=== PATIENT | female | born 1960 | race Caucasian/White ===

== ENCOUNTER 2020-08-10 00:54 | Outpatient (CLI) | payer BC, SELFPAY ==
[2020-08-10 18:46] LABS: SARS-CoV-2 RNA PCR Negative
== END 2020-08-10 00:55 | disposition home or self-care (01) ==
LOC: ANHCOVIDDT 00:54
PROVIDERS: PCP Emergency Medicine; Visit Provider Internal Medicine Gastroenterology
DX: Z01.812 Encounter for preprocedural laboratory examination (principal); Z20.822 Contact with and (suspected) exposure to COVID-19
CPT/HCPCS: C9803; U0003; U0005

== ENCOUNTER 2020-08-14 01:20 | Day surgery (SDC) | payer BC, SELFPAY ==
[2020-07-30 14:29] VITALS: BMI 22.3
[2020-08-14 08:44] VITALS: BP 138/79; PULSE 82; RESP 16; TEMP 37.6; O2SAT 98
[2020-08-14] MEDS: LACTATED RINGERS 1,000 ML 150 ML IV CONT (08:51)
--- NOTE | 2020-08-14 08:54 | WPDANESEPPF ---
Anes - Initial Pre Proc Eval Procedure: Operation Date: 08/14/20 10:00 Proposed Procedures p Screening Colonoscopy - Jasper Lang MD Date/Time: 08/14/20 08:54 Surgeon: Jasper Lang MD Pre Op Diagnosis: Neoplasm Screening Patient Data Age: 60 Gender: F Height: 1.63 m Weight: 99.6 kg Last Vital Signs Temp 37.6 C 08/14/20 08:44 Pulse 82 08/14/20 08:44 Resp 16 08/14/20 08:44 BP 138/79 08/14/20 08:44 Pulse Ox 98 08/14/20 08:44 Allergies Allergy/AdvReac Type Severity Reaction Status Date / Time No Known Allergies Allergy Verified 08/14/20 08:42 Home Medications Medication Instructions Recorded Confirmed Type No Home Medications 08/14/20 08/14/20 History Patient hx anesthesia problems: none Family hx anesthesia problems: none [facility] Past Medical History Medical History (Updated 08/14/20 @ 08:56 by Wilmer Xiao MD) Asthma Obesity Social History Social History Years smoked: 3 Smoking status: Former smoker Tobacco type: cigarettes Alcohol intake: current Drinks per week: 2 Substance use: never Substance use type: does not use Living arrangements: with family Spiritual care concerns: No Anes - Eval Final PreProcedure Day of Procedure 08/14/20 08:54 Patient weight: obese Heart: regular rate and rhythm Lungs: clear to auscultation and normal air movement Airway: Mallampati scale Neurological: alert and oriented Last oral intake: >/= 8 hours ASA classification: II Emergent: no Anesthetic plan: proceed Anesthesia type and monitoring: general GIVS Informed Consent: The patient's anesthetic plan and its attendant risks and benefits were discussed with the patient/family/POA. Questions were solicited and answers provided to the satisfaction of the patient/family/POA.
--- NOTE | 2020-08-14 10:06 | PM.HPGS ---
History of Present Illness History of Present Illness Consent: Risks, benefits, and alternatives have been discussed and questions answered. Patient agrees to proceed with procedure. Chief complaint: Neoplasm Screening Narrative: Ifrah Plunkett is a 60 year old female here for first screening colonoscopy Review of Systems Constitutional: Constitutional: Denies headache(s) and Denies weakness Eyes: Eyes: Denies blurry vision ENT: Reports Normal hearing present, Denies headache(s) and Denies neck pain Cardiovascular: Cardiovascular: Denies chest pain and Denies dyspnea Respiratory: Respiratory: Denies dyspnea Gastrointestinal: Gastrointestinal: Reports no additional gastrointestinal complaints Genitourinary: Genitourinary: Denies dysuria Musculoskeletal: Musculoskeletal: Denies neck pain Integumentary/Breasts: Skin/Breast: Denies dry skin Neurologic: Reports Normal hearing present, Denies headache(s) and Denies weakness Psychiatric: Psychiatric: Denies anxiety Endocrine: Endocrine: Denies change in body appearance Hematologic/Lymphatic: Hematologic/Lymphatic: Denies easy bleeding Allergic/Immunologic: Allergic/Immunologic: Denies urticaria PMFSH Past Medical History Medical History (Updated 08/14/20 @ 10:06 by Jasper Lang MD) Asthma Colon cancer screening Obesity Social History Social History Years smoked: 3 Smoking status: Former smoker Tobacco type: cigarettes Alcohol intake: current Drinks per week: 2 Substance use: never Substance use type: does not use Living arrangements: with family Spiritual care concerns: No Meds Home Medications and Allergies Home Medications Medication Instructions Recorded Confirmed Type No Home Medications 08/14/20 08/14/20 History Allergies Allergy/AdvReac Type Severity Reaction Status Date / Time No Known Allergies Allergy Verified 08/14/20 08:42 Vital Signs Vital Signs - 24 hr 08/14/20 08:44 Temperature 99.6 F Pulse Rate 82 Respiratory Rate 16 Blood Pressure 138/79 Pulse Oximetry 98 Exam Const: General: comfortable and no acute distress HENMT: General nose exam: Normal nares present Eyes: General: appearance normal, both eyes and all related structures Neck: Neck: no JVD Resp: Auscultation: clear to auscultation bilaterally Cardio: Rate: regular rate Rhythm: regular rhythm GI: Inspection: non-distended GI Palp: Yes Soft to palpation Skin: General skin exam: normal color Neuro: General: gait normal Speech: normal speech Extrem: General: normal to inspection Psych: Mental Status: mental status grossly normal Assessment and Plan Assessment and plan (1) Colon cancer screening: Code(s): Z12.11 - Encounter for screening for malignant neoplasm of colon Status: Acute Assessment and Plan: will proceed with colonoscopy
[2020-08-14 10:27] VITALS: BP 96/53; PULSE 68; RESP 22; O2SAT 98
[2020-08-14 10:37] VITALS: BP 103/61; PULSE 64; RESP 20; O2SAT 100
[2020-08-14 10:47] VITALS: BP 111/68; PULSE 70; RESP 18; O2SAT 100
[2020-08-14 10:57] VITALS: BP 115/61; PULSE 66; RESP 20; O2SAT 99
== END 2020-08-14 11:06 | disposition home or self-care (01) ==
PROVIDERS: PCP Emergency Medicine; Visit Provider Internal Medicine Gastroenterology
PROC: 0DJD8ZZ Inspection of Lower Intestinal Tract, Via Natural or Artificial Opening Endoscopic (ICD-10-PCS; CPT 45378; principal; 2020-08-14 10:00)
DX: Z12.11 Encounter for screening for malignant neoplasm of colon (principal); D12.2 Benign neoplasm of ascending colon; D12.0 Benign neoplasm of cecum; Z87.891 Personal history of nicotine dependence; E66.9 Obesity, unspecified; Z68.37 Body mass index [BMI] 37.0-37.9, adult; J45.909 Unspecified asthma, uncomplicated
CPT/HCPCS: 45385; 88305; J7120

== ENCOUNTER 2021-05-14 07:44 | Emergency (ER) | payer BC, SELFPAY ==
--- NOTE | ~2021-05-14 | CT_ITS ---
EXAMINATION: CT facial bones wo con DATE: 05/14/2021 08:32 INDICATION: Facial pain post fall with head injury TECHNIQUE: Computed tomography (CT) of the facial bones and maxillofacial region was performed withou t intravenous contrast. Coronal reconstructions were obtained. Automated exposure control and iterati ve reconstruction technique were employed. The dose-length product was 258.13 mGy-cm. COMPARISON: None. FINDINGS: Nondisplaced fracture across the nasal process of the maxilla. No other maxillofacial fractures ident ified. Specifically the gilbert of the orbits, paranasal sinuses, the nasal bones, mandible, pterygoid plates and zygomatic arches all intact. Normal alignment at the bilateral temporomandibular joints. N daren septum is midline. Mild to moderate mucosal thickening throughout the paranasal sinuses. Orbits are normal. Mastoid air cells and middle ear cavities are clear. Moderate disc height loss with degen erative endplate changes at C5-C6. Mild spondylosis in the more cephalad cervical spine. Multiple den jack restorations. Prominent periapical lucency at the posterior most right maxillary molar. IMPRESSION: 1. Nondisplaced fracture across the nasal process of the maxilla. Reviewed, dictated and finalized at location A.
[2021-05-14 08:00] VITALS: BP 134/75; PULSE 64; RESP 16; TEMP 36.4; O2SAT 100
--- NOTE | 2021-05-14 08:01 | ED.FALL ---
HPI - Fall General Chief Complaint: Wound/Laceration Stated Complaint: fell and hit nose Time Seen by Provider: 05/14/21 08:01 Source: patient and family Mode of arrival: wheelchair Limitations: no limitations History of Present Illness HPI Narrative: 60-year-old previously well woman comes in today complaining of pain and bleeding from her nose that started this morning. Patient states that she was getting dressed, lost her balance, and fell against the edge of a nearby dresser. She had preceding symptoms such as lightheadedness, palpitations, dizziness or chest pain and did not lose consciousness. Patient states that she felt nauseous and dizzy after the injury and feels lightheaded when she sits up. complaint: fall Onset (ago): minute(s) (30) Fall from: standing Fall witnessed: yes, by family Place fall occurred: home Loss of consciousness: none Prolonged down time: no Symptoms prior to fall: none Context: tripped/slipped Location of injury: face Associated symptoms (after fall): lightheaded and other (nausea) Related Data Home Medications Medication Instructions Recorded Confirmed No Home Medications 08/14/20 05/14/21 Allergies Allergy/AdvReac Type Severity Reaction Status Date / Time No Known Allergies Allergy Verified 05/14/21 07:59 Review of Systems Review of Systems: All systems reviewed & are unremarkable except as noted in HPI and below Eyes: Eyes: Denies change in vision and Denies photophobia ENT: Reports epistaxis, Denies nasal congestion and Denies sore throat Cardiovascular: Cardiovascular: Denies chest pain and Denies radiating jaw, neck or arm pain Respiratory: Respiratory: Denies cough and Denies dyspnea Gastrointestinal: Gastrointestinal: Reports nausea and Denies vomiting Musculoskeletal: Musculoskeletal: Denies back pain, Denies arthralgias and Denies joint swelling Integumentary/Breasts: Skin/Breast: Reports as per HPI, Denies pruritus, Denies erythema and Denies rash Neurologic: Denies vertigo, Reports dizziness and Denies syncope Hematologic/Lymphatic: Hematologic/Lymphatic: Denies easy bleeding and Denies easy bruising Allergic/Immunologic: Allergic/Immunologic: Denies lip swelling and Denies throat swelling PMFSH Past Medical History Medical History Asthma Colon cancer screening Obesity Social History Social History Years smoked: 3 Smoking status: Former smoker Tobacco type: cigarettes Alcohol intake: current Drinks per week: 2 Substance use: never Substance use type: does not use Spiritual care concerns: No Exam Const: General: healthy appearing and alert Orientation/consciousness: patient oriented x3 Limitations: no limitations Other: Mild acute distress. HENMT: Head: normal to inspection and laceration ( Irregular laceration from the right nare transverse across the columella.) Ears: external ears normal, TM's normal bilaterally and EAC's normal Mouth: Yes moist mucous membranes Throat: posterior oropharynx normal Other: No tenderness palpation the bony part of the face or teeth. Patient states that she has pain in the upper part of her mouth. Scant blood in the posterior pharynx. Eyes: Conjunctivae: conjunctivae normal Pupils: Equal, round and reactive pupils present EOM: EOMs intact bilaterally Neck: Neck: normal visual inspection Resp: Effort & Inspection: normal respiratory effort and labored Auscultation: clear to auscultation bilaterally, rales, rhonchi and wheezes Cardio: Rate: regular rate Rhythm: regular rhythm Skin: General skin exam: normal color, no jaundice and no pallor Rashes: no rashes Neuro: General: patient oriented x3, moves all extremities, no focal motor deficits and CN's II-XI intact bilaterally Speech: normal speech Gait exam (Neuro): Normal gait present Extrem: General: normal to inspec
--- NOTE | 2021-05-14 08:03 | PCDIET ---
Spoke to Curt GARZA, Dr. Rehman is consulting technical manager for [employer].
[2021-05-14] MEDS: TETANUS,DIPHTHERIA,AC PERTUSSIS ADULT 0.5 ML (ADACEL) IM (08:17)
[2021-05-14] MEDS: HYDROcodone/acetaminophen (*CRX) 5-325 MG TABLET 1 TAB PO (08:32)
--- NOTE | 2021-05-14 09:00 | PC.NURSE ---
Spoke to Dr. Rehman's office who was able to see pt now. All records were visible to 's office at time of call. Patient informed that Dr. Rehman could see her now. Pt and verbalized understanding. Address and phone number for office printed on discharge paperwork.
== END 2021-05-14 09:16 | disposition home or self-care (01) ==
PROVIDERS: Emergency Provider Emergency Medicine; PCP Emergency Medicine
DX: S01.81XA Laceration without foreign body of other part of head, initial encounter (principal); S02.401A Maxillary fracture, unspecified side, initial encounter for closed fracture; W18.30XA Fall on same level, unspecified, initial encounter; Z87.891 Personal history of nicotine dependence
CPT/HCPCS: 70486; 90471; 90715; 99282; 99284; A9270

== ENCOUNTER 2021-07-28 14:41 | Outpatient (CLI) | payer BC, SELFPAY ==
--- NOTE | ~2021-07-28 | MM_ITS ---
EXAMINATION: MM screening ángel BI w you HISTORY: Screening TECHNIQUE: Craniocaudal and mediolateral oblique 3-D tomosynthesis images were obtained and synthetic 2-D images were generated. CAD analysis was submitted and interpreted. COMPARISON: No prior mammogram is available for comparison at this institution. BREAST PARENCHYMAL COMPOSITION: There are scattered areas of fibroglandular density. FINDINGS: There is no evidence of suspicious mass, calcification, or architectural distortion to sugg est malignancy in either breast. There has been no suspicious interval change. IMPRESSION: 1. No mammographic evidence of malignancy. 2. Recommend routine screening mammography in one year. BI-RADS Category 1: Negative Reviewed, dictated and finalized at location B. ET TRIMMER
== END 2021-07-28 14:42 | disposition home or self-care (01) ==
LOC: ANHIMG 14:44
PROVIDERS: PCP Emergency Medicine; Visit Provider Obstetrics & Gynecology Gynecology
DX: Z12.31 Encounter for screening mammogram for malignant neoplasm of breast (principal)
CPT/HCPCS: 77063; 77067

== ENCOUNTER 2022-03-30 16:38 | Outpatient (RCR) | payer BC, SELFPAY ==
--- NOTE | 2022-03-30 17:57 | PTOPEVAL1 ---
Assessment and note entered by Diane Hernandez DPT Evaluation Information Assessment Status Evaluation Diagnosis Vertigo Onset 03/14/2022 Subjective Information Pt notes symptoms when rolling in bed and when looking up to clean. She reports this all happened after she tripped and fell into a dresser last May. She reports some nausea afterwards and dizziness. She reports that her symptoms have gotten better over time but are still there. Pt reports that dizziness is room spinning and lasts up to a few minutes. She reports that her symptoms are worse when turning her head in bed, first sitting up, or looking up. Pt reports that she has had vertigo in the past but was able to fix with maneuvers. Denies headaches, denies hearing changes but has some tinnitus that occurred before this incident. Denies aural fullness. Denies phonophobia/photophobia. Denies ear infections as a kid. Primary MD gave her nausea medicine but felt it didn't help. Denies use of prolonged use of -myocin drugs. Denies BP issues or changes. Denies falls due to dizziness. Reported Pain Level Pain Score 0: Self Report Assessment PT Clinical Summary Pt presents to physical therapy with vertiginous symptoms with positional testing. Pt demonstrated positive fatiguing R torsional up-beating nystagmus with R Mcmillan-Hallpike, indicating R posterior canalithic involvement. R Adrianna performed x 1 with high levels of nausea post treatment. Additional repetition of Adrianna not performed due to high levels of nausea, however fortunately with supine head roll test and R Sunitha- Hallpike post treatment, no nystagmus was observed and pt only reported nausea and not vertiginous symptoms. Due to increased symptoms, pt called her daughter to pick her up and ensure she made it home safely. Pt was educated to perform the Adrianna again in the morning shoulder her vertiginous symptoms remain. PT plans to call her tomorrow to assess her current symptoms and determine if more visits may be required. She will benefit from skilled PT to decrease risk for falls, facilitate symptom relief, and return to functional and recreational activities. Plan of Care Interventions Neuro Re-education,Patient/Caregiver Educati, Therapeutic Exercise PT Services Indicated Ye
== END 2022-04-20 13:30 | disposition home or self-care (01) ==
LOC: CHSPT 16:38
PROVIDERS: Visit Provider Otolaryngology
DX: R42 Dizziness and giddiness (principal)
CPT/HCPCS: 97110; 97112; 97161

== ENCOUNTER 2022-07-30 13:36 | Outpatient (CLI) | payer BC, SELFPAY ==
--- NOTE | ~2022-07-30 | DEXA_ITS ---
Bone Density Report Name: YASMEEN RASHEED Age: 62 Sex: Female Ethnicity: White Date of : 1960 Indication: postmenopausal; screening for osteoporosis; asthma or emphysema; Referring Provider: JENNIFFER, SHARDA Study: Bone densitometry was performed. Exam Date: July 30, 2022 Accession number: [id number] Bone Density: Region BMD T-score Z-score Classification AP Spine(L1-L4) 0.905 -1.3 0.3 Osteopenia Femoral Neck (Left) 0.626 -2.0 -0.6 Osteopenia Total Hip (Left) 0.769 -1.4 -0.4 Osteopenia Femoral Neck (Right) 0.534 -2.8 -1.5 Osteoporosis Total Hip (Right) 0.720 -1.8 -0.8 Osteopenia Total Hip Mean 0.744 -1.6 -0.6 Osteopenia World Health Organization criteria for BMD impression classify patients as: Normal (T-score at or above -1.0), Osteopenia (T-score between -1.0 and -2.5), or Osteoporosis (T-score at or below -2.5). 10-year Fracture Risk: FRAX not reported because: Some T-score for Spine Total or Hip Total or Femoral Neck at or below -2.5 Clinical Information Provided by Patient: Has used the following medications: Vitamin D Has the following medical conditions: Asthma or Emphysema Patient maximum height was 64 Menopause Age: 55 Drinks caffeinated beverages Onset of menses at age 14 Number of children 1 Impression: The patient has osteoporosis, based on the Right Femoral Neck T-score. Discussion: INCREASED RISK OF FRACTURE. BONE DENSITY IS UNDESIRABLY LOW AT ONE OR MORE SKELETAL SITES, CONSISTENT WITH POSTMENOPAUSAL OSTEOPOROSIS. This patient's lowest T-score meets the World Health Organization's (WHO) criteria for osteoporosis at one or more sites (T-score -2.5 or below). In untreated patients, the risk of osteoporotic fracture increases approximately two-fold for each 1.0 SD decrease in T-score. Low bone density is not the only risk factor for fracture; also consider factors such as patient's age, frailty or poor health, risk of falling, risk of injury, previous osteoporotic fracture, family history of osteoporosis, cigarette smoking, low body weight, etc. Not everyone with low bone mineral density has osteoporosis; osteomalacia and other metabolic bone disorders should also be considered. Patients who have osteoporosis should be evaluated for specific diseases and conditions (secondary causes) that may cause or contribute to bone loss. The [place] [employer]ocrinologists (AACE) and National Osteoporosis Foundation (NOF) recommend pharmacologic intervention for all postmenopausal women whose T-score is in this range. The patient should follow a healthful lifestyle (good nutrition with adequate calcium and vitamin D, and appropriate weight-bearing exercise). Follow-Up: Consider a repeat BMD and Vertebral Fracture Assessment (VFA) exam in 2 years or soon
--- NOTE | ~2022-07-30 | MM_ITS ---
EXAMINATION: MM screening ángel BI w you HISTORY: Screening mammogram TECHNIQUE: Craniocaudal and mediolateral oblique 3-D tomosynthesis images were obtained and synthetic 2-D images were generated. CAD analysis was submitted and interpreted. COMPARISON: 07/28/2021 BREAST PARENCHYMAL COMPOSITION: The breasts are heterogeneously dense, which may obscure small masses . FINDINGS: No suspicious mass, calcification, or architectural distortion are identified in either isabell ast to suggest malignancy. There has been no suspicious interval change. IMPRESSION: 1. No mammographic evidence of malignancy. 2. Recommend routine screening mammography in one year. BI-RADS Category 1: Negative Reviewed, dictated and finalized at location A. RO[address]
== END 2022-07-30 13:37 | disposition home or self-care (01) ==
LOC: ANHIMG 13:37
PROVIDERS: PCP Internal Medicine; Visit Provider Internal Medicine
DX: Z12.31 Encounter for screening mammogram for malignant neoplasm of breast (principal); Z78.0 Asymptomatic menopausal state; M85.89 Other specified disorders of bone density and structure, multiple sites; M81.0 Age-related osteoporosis without current pathological fracture
CPT/HCPCS: 77063; 77067; 77080

== ENCOUNTER → 2023-03-19 08:05 | Outpatient (CLI) | payer BC, SELFPAY ==
--- NOTE | ~2023-03-19 | CT_ITS ---
CT of the Abdomen and Pelvis: Indication: Abdominal pain Technique: 2.5 mm axial scans were obtained through the abdomen and pelvis following intravenous adm inistration of 100 cc of Omnipaque 350. Dose reduction technique was used on this scan by utilizing a utomated exposure control and iterative reconstruction technique. The dose-length product (DLP) was 4 19.91 mGy-cm. Findings: Scans through the lung bases are unremarkable. The liver, spleen, pancreas, gallbladder, adrenals and kidneys are within normal limits. No evidence of aortic aneurysm. No lymphadenopathy. No bowel obstruction. Questionable mild wall thickening of the sigmoid colon versus underdistention. No abscess or free air. Images through the pelvis were performed. Urinary bladder unremarkable. No adnexal mass evident. No a scites. Impression: Questionable mild wall thickening of the sigmoid colon versus underdistention. Correlate for any poss ibility of infectious/inflammatory colitis. Reviewed, dictated and finalized at [facility]. Impression: Questionable mild wall thickening of the sigmoid colon versus underdistention. Correlate for any possibility of infectious/inflammatory colitis.
[2023-03-19 08:30] LABS: Estimated Glomerular Filt Rate > 60
== END ==
PROVIDERS: PCP Internal Medicine; Visit Provider Internal Medicine
DX: R10.9 Unspecified abdominal pain (principal)
CPT/HCPCS: 74177; Q9967

== ENCOUNTER 2023-07-17 08:27 | Inpatient (IN) | payer BC, SELFPAY ==
[2023-07-17] VITALS (24 sets, daily range): BP systolic 116–149; BP diastolic 66–98; PULSE 72–90; RESP 16–20; TEMP 36.2–37.3; O2SAT 91–100
--- NOTE | ~2023-07-17 | CT_ITS ---
EXAMINATION: CT abdomen pelvis w con DATE: 07/17/2023 10:03 INDICATION: Diffuse abdominal pain. Bloating. TECHNIQUE: Computed tomography (CT) of the abdomen and pelvis was performed with 100 CC Omnipaque 350 intravenous contrast. Automated exposure control and iterative reconstruction technique were employe d. Exam dose: 236.90 mGy-cm total exam DLP. COMPARISON: 03/19/2023 CT abdomen pelvis FINDINGS: There is minimal dependent bilateral lower lobe atelectasis. Normal heart size. No pericardial or pleural effusion. Liver, gallbladder, bile ducts, spleen, pancreas, pancreatic duct, and adrenal glands and kidneys are unremarkable except for mild posterior upper pole right renal scarring. There is atherosclerotic calcification but normal caliber of the abdominal aorta. No intraperitoneal or retroperitoneal or pelvic mass lesion or adenopathy or ascites is noted. There is prominent soft tissue thickening of the sigmoid colon with eccentric approximately 19 at 25 mm hypoattenuating area suggesting an abscess in the wall. There is prominent pericolic soft tissue f at stranding. Normal appendix. The uterus, adnexal areas and urinary bladder are unremarkable. Consider diverticular abscess, sigmoi d colon neoplasm in the differential diagnosis. Severe degenerative disc disease at L4-5 and L5-S1. Prominent degenerative change at the apophyseal j oints particularly at the same levels. IMPRESSION: Prominent abnormal soft tissue thickening of sigmoid colon, with 19 x 25 mm hypoattenuat ing mass in the sigmoid colon wall, possibly sigmoid colon carcinoma versus sigmoid colon abscess Normal appendix Reviewed, dictated and finalized at [facility] Reviewed, dictated and finalized at [facility] IMPRESSION: Prominent abnormal soft tissue thickening of sigmoid colon, with 1 9 x 25 mm hypoattenuating mass in the sigmoid colon wall, possibly sigmoid colo n carcinoma versus sigmoid colon abscess Normal appendix
--- NOTE | 2023-07-17 08:54 | ED.ABDPAIN ---
HPI - Abdominal Pain General Chief Complaint: Abdominal Pain Stated Complaint: lower abd pain Time Seen by Provider: 07/17/23 08:54 Source: patient and family Mode of arrival: ambulatory Limitations: no limitations History of Present Illness HPI narrative: Lower abdominal pain, bloating for the last 5 days. Worse when she tried to go to the bathroom, no bowel movement for 6 days. She denies relieving factors. Fever, chills, nausea, vomiting. Patient does not smoke or drink or use drugs, no history of abdominal surgery. History of hyperlipidemia Related Data Allergies Allergy/AdvReac Type Severity Reaction Status Date / Time No Known Allergies Allergy Verified 05/19/21 08:33 Review of Systems Review of Systems: All systems reviewed & are unremarkable except as noted in HPI and below PMFSH Past Medical History Medical History Asthma Colon cancer screening Obesity Social History Social History Years smoked: 3 Smoking status: Former smoker Tobacco type: cigarettes Alcohol intake: current Drinks per week: 2 Substance use: never Substance use type: does not use Living arrangements: with family Spiritual care concerns: No Exam Narrative: General appearance: Well-developed, well-nourished Skin: Normal color Head: Normocephalic, nontraumatic Eyes: Clear conjunctiva ENT: Oropharynx normal, ears normal, nose normal Neck: Supple, nontender Chest and respiratory: Airway patent, no respiratory distress, no accessory muscle use Heart: Regular rate/rhythm Abdomen: Soft, diffuse abdominal tenderness, no organomegaly, quiet bowel sounds Vascular: Normal peripheral pulses, normal capillary refill. Musculoskeletal: Normal range of motion, nontender back Neurologic: Alert and oriented ?3, [employer] is normal as tested, no gross motor deficit Course Reevaluation(s) Reevaluation #1: NO NEW CHANGES COMPARED TO ON ARRIVAL Date: 07/17/23 Time: 12:28 Vital Signs Vital signs: Vital Signs Temperature 36.2 C L 07/17/23 08:31 Pulse Rate 90 07/17/23 08:31 Respiratory Rate 20 07/17/23 08:31 Blood Pressure 139/73 07/17/23 08:31 Pulse Oximetry 99 07/17/23 08:31 Oxygen Delivery Room Air 07/17/23 08:31 Temperature 36.7 C 07/17/23 09:31 Pulse Rate 74 07/17/23 09:31 Respiratory Rate 16 07/17/23 09:31 Blood Pressure 116/74 07/17/23 09:31 Pulse Oximetry 98 07/17/23 09:31 Oxygen Delivery Room Air 07/17/23 08:31 MDM - Abdominal Pain MDM Narrative Medical decision making narrative: PATIENT PRESENTS WITH ABDOMINAL PAIN FOR A WHILE, VITAL SIGNS ON ARRIVAL IS STABLE, PHYSICAL EXAMINATION SHOWED DIFFUSE ABDOMINAL TENDERNESS DIFFERENTIAL DIAGNOSIS INCLUDE DIVERTICULITIS, CONSTIPATION, PANCREATITIS, INTRA-ABDOMINAL MALIGNANCY. WORKUP TODAY SHOWED WBC OF 10.2, CT SCAN OF THE ABDOMEN AND PELVIS WITH IV CONTRAST SHOWED MASS SIGMOID COLON MALIGNANCY VERSUS ABSCESS. DR. PEÑA WAS NOTIFIED NEW LINE PATIENT WILL BE ADMITTED TO HOSPITALIST FOR FURTHER EVALUATION WITH DIAGNOSIS OF ABDOMINAL PAIN Differential Diagnosis Differential diagnosis: Likely abdominal pain and other ( ABOVE) Medical Records Attestation: I reviewed the patient's medical records. Lab Data Attestation: I reviewed the patient's lab results. 07/17/23 09:14 07/17/23 09:14 Labs: Lab Results 07/17/23 Range/Units 09:14 WBC 10.2 H (4.5-10.0) K/mm3 RBC 4.75 (4.2-5.4) M/mm3 Hgb 13.7 (12.0-15.0) g/dL Hct 43.0 (37.0-47.0) % MCV 90.5 (80-100) fl MCH 28.8 (26-34) pg
[2023-07-17 09:29] LABS: Basophils Percent Auto 0.4 % (0.2-1.2); Eosinophils Absolute Auto 0.1 K/mm3 (0-0.3); Eosinophils Percent Auto 0.8 % (0-4.4); Hemoglobin 13.7 g/dL (12.0-15.0); Immature Granulocyte Absolute 0.02 K/mm3 (0.00-0.031); Immature Granulocyte Percent A 0.2 % (0-0.5); Lymphocytes Absolute Auto 1.26 K/mm3 (0.9-3.2); Lymphocytes Percent Auto 12.4 % (18.3-44.2); Mean Corpuscular HGB Conc 31.9 g/dl (32-36); Mean Corpuscular Hemoglobin 28.8 pg (26-34); Mean Corpuscular Volume 90.5 fl (80-100); Mean Platelet Volume 10.8 fl (7.4-10.4); Monocytes Absolute Auto 0.7 K/mm3 (0.1-0.6); Monocytes Percent Auto 6.8 % (2.6-8.5); Neutrophils Absolute Auto 8.1 K/mm3 (1.3-6.7); Neutrophils Percent Auto 79.4 % (45.5-73.1); Platelet Count Result 279 k/mm3 (150-375); Red Blood Count 4.75 M/mm3 (4.2-5.4); Red Cell Distribution Width 11.9 % (11.5-14.5); White Blood Count 10.2 K/mm3 (4.5-10.0)
[2023-07-17 09:35] LABS: Appearance Urine Clear (Clear); Bacteria Urine None Seen /hpf; Bilirubin Urine 1+ (Negative); Blood Urine Trace (Negative); Color Urine Dark Yellow (Yellow); Glucose Urine UA Negative (Negative); Ketones Urine 2+ mg/dL (Negative); Leukocyte Esterase Ur Trace LEU/UL (Negative); Nitrate Urine Negative (Negative); Non Pathogenic Casts 0-2; Protein Urine 1+ mg/dL (Negative); Specific Grav Ur 1.023 (1.001-1.035); Squamous Epithelial Cell Urine Occasional /hpf (Few); WBC Urine 0-5 /hpf
[2023-07-17 09:36] LABS: Lactic Acid Reflex 0.7 mmol/L (0.7-2.0)
[2023-07-17] MEDS: SODIUM CHLORIDE 0.9% IV 1,000 ML 999 ML IV CONT (09:41)
[2023-07-17 09:44] LABS: Alanine Aminotransferase 36 U/L (6-35); Albumin Level 4.3 g/dL (3.5-5.1); Alkaline Phosphatase 113 U/L (38-126); Anion Gap 11 mmol/L (8-16); Aspartate Amino Transferase 39 U/L (14-36); Bilirubin,Total 0.9 mg/dL (0.2-1.3); Blood Urea Nitrogen 11 mg/dL (7-17); Calcium 9.3 mg/dL (8.4-10.2); Carbon Dioxide 26 mmol/L (22-30); Chloride 102 mmol/L (98-107); Estimated CRCL calculation 54 ml/min; Estimated Glomerular Filt Rate > 60; Glucose 93 mg/dL (65-110); Lipase 42 U/L (23-300); Potassium 3.9 mmol/L (3.4-5.0); Sodium 139 mmol/L (137-145)
[2023-07-17 10:01] LABS: Add Urine Microscopic? YES
--- NOTE | 2023-07-17 13:37 | PM.IMHP ---
H&P: HPI History of Present Illness Date/Time: 07/17/23 13:37 Chief Complaint: Abdominal Pain Narrative: 63 y/o F presents here with lower abdominal pain and constipation with PMH of asthma and dyslipidemia. Patient reports having lower abdominal/suprapubic pain and bloating for stretches of 1 week per month for around 5 months over this past spring and summer (2223). Pain resolved around February and did not reoccur through May. Did have CT of the abd/pelvis in Mar which showed questionable mild wall thickening of the sigmoid colon versus underdistention.?Pain then began again in Jun. Has been worse over the last 5 days. Increased constipation since 07/12. States she has only been passing small pebbled, nonbloody stool. Saw PCP who recommended Miralax, has only taken 1 dose. Today having pain more so in left hip into left flank/L ribs. No associated N/V. Bloating extending into epigastric region without upper abdominal pain. ED w/u showed slight elevation in WBC 10.2, hgb normal at 13.7, mild bump in LFTs without elevation in total bili/alk phos/lipase, and CT of abdomen/pelvis showed a?19 x 25 mm hypoattenuating mass in the sigmoid colon wall with prominent soft tissue thickening of the sigmoid colon. No personal hx of cancer. FH of cancer - dad and brother had lung cancer, both heavy smokers. Patient reports she does not smoke (does have previous hx - only 3 years), has 1-2 glasses of wine per week, and no recreational drug use. Currently denying any body aches, fever or chills. Review of Systems Review of Systems: All systems reviewed & are unremarkable except as noted in HPI and below [facility] Past Medical History Medical History (Updated 07/17/23 @ 22:14 by Harriet Muñoz APRN) Asthma Colon cancer screening 2020 - 3 polyps removed and benign Dyslipidemia Surgical History Surgical History No history of previous surgery Social History Social History Years smoked: 3 Smoking status: Never smoker Tobacco type: cigarettes Alcohol intake: current Drinks per week: 2 Substance use: never Substance use type: does not use Do You Feel Safe in your Home?: Yes Lack of Transportation: No Lack of Food: Never True Current Housing: I Have Housing Concerned About Future Housing: No Difficulty Paying Gas/Electric Bills: No Difficulty Paying for Meds: No Currently Unemployed: No Education: High School Diploma/GED Difficulty w/ Childcare or Family Care: No Living arrangements: with family Spiritual care concerns: No Meds Home Medications and Allergies Home Medications Medication Instructions Recorded Confirmed Type rosuvastatin 40 mg tablet 40 mg PO DAILY 07/17/23 07/17/23 History Allergies Allergy/AdvReac Type Severity Reaction Status Date / Time No Known Allergies Allergy Verified 05/19/21 08:33 Vital Signs Vital Signs - 24 hr 07/17/23 08:31 07/17/23 09:31 Temperature 97.1 F L 98.0 F Pulse Rate 90 74 Respiratory Rate 20 16 Blood Pressure 139/73 116/74 Pulse Oximetry 99 98 Oxygen Delivery Room Air Exam Const: General: comfortable and no acute distress HENMT: Face/Nose/Sinus: Normal nares present Mouth: Yes moist mucous membranes Eyes: General: appearance normal, both eyes and all related structures Sclera: sclerae normal Pupils: Equal, round and reactive pupils present EOM: EOMs intact bilaterally Resp: Effort & Inspection: normal respiratory effort Auscultation: clear to auscultation bilaterally Cardio: Rate: regular rate Rhythm: regular rhythm Other: S1 and S2 present without murmur, extra heart sound, or rub GI: Other: mild distention, tender through lower abdomen (bilat) with guarding, normal to hyperactive bowel sounds in upper quadrants and RLQ. LLQ normal to hypoactive BS. Skin: General skin exam: normal color
[2023-07-17] MEDS: SODIUM CHLORIDE 0.9% IV 1,000 ML 150 ML IV CONT ×2 (13:41→22:55)
[2023-07-17] MEDS: PIPERACILLN/TAZ 3.375GM/NS50ML 3.375 GM/50 ML BAG IVPB ×3 (13:42→22:59)
[2023-07-17] MEDS: DOCUSATE SODIUM 100 MG CAPSULE PO (18:34)
[2023-07-17] MEDS: DICYCLOMINE HCL 10 MG CAPSULE 20 MG PO ×2 (18:34→22:59)
[2023-07-17] MEDS: polyethylene glycoL 3350 17 GM POWD.PACK PO (18:34)
[2023-07-18] MEDS: SODIUM CHLORIDE 0.9% IV 1,000 ML 150 ML IV CONT ×3 (05:51→20:13)
[2023-07-18] MEDS: DICYCLOMINE HCL 10 MG CAPSULE 20 MG PO (05:54)
[2023-07-18] MEDS: PIPERACILLN/TAZ 3.375GM/NS50ML 3.375 GM/50 ML BAG IVPB ×3 (05:57→18:25)
[2023-07-18 06:20] VITALS: BP 110/65; PULSE 55; RESP 16; TEMP 36.9; O2SAT 92
[2023-07-18 06:48] LABS: Basophils Percent Auto 0.4 % (0.2-1.2); Eosinophils Absolute Auto 0.1 K/mm3 (0-0.3); Eosinophils Percent Auto 0.7 % (0-4.4); Hematocrit 35.7 % (37.0-47.0); Hemoglobin 11.7 g/dL (12.0-15.0); Immature Granulocyte Absolute 0.04 K/mm3 (0.00-0.031); Immature Granulocyte Percent A 0.4 % (0-0.5); Lymphocytes Absolute Auto 1.66 K/mm3 (0.9-3.2); Lymphocytes Percent Auto 15.2 % (18.3-44.2); Mean Corpuscular HGB Conc 32.8 g/dl (32-36); Mean Corpuscular Hemoglobin 29.2 pg (26-34); Mean Platelet Volume 10.8 fl (7.4-10.4); Monocytes Absolute Auto 0.9 K/mm3 (0.1-0.6); Monocytes Percent Auto 8.1 % (2.6-8.5); Neutrophils Absolute Auto 8.2 K/mm3 (1.3-6.7); Neutrophils Percent Auto 75.2 % (45.5-73.1); Platelet Count Result 248 k/mm3 (150-375); Red Blood Count 4.01 M/mm3 (4.2-5.4); Red Cell Distribution Width 11.9 % (11.5-14.5); White Blood Count 10.9 K/mm3 (4.5-10.0)
[2023-07-18 06:53] LABS: Anion Gap 8 mmol/L (8-16); Blood Urea Nitrogen 8 mg/dL (7-17); Calcium 8.4 mg/dL (8.4-10.2); Carbon Dioxide 21 mmol/L (22-30); Chloride 108 mmol/L (98-107); Estimated CRCL calculation 54 ml/min; Estimated Glomerular Filt Rate > 60; Glucose 98 mg/dL (65-110); Potassium 3.8 mmol/L (3.4-5.0); Sodium 137 mmol/L (137-145)
[2023-07-18 08:00] VITALS: PULSE 55; RESP 16; O2SAT 92
[2023-07-18] MEDS: DOCUSATE SODIUM 100 MG CAPSULE PO ×2 (09:23→20:12)
[2023-07-18] MEDS: polyethylene glycoL 3350 17 GM POWD.PACK PO (09:23)
[2023-07-18] MEDS: ROSUVASTATIN 10 MG TABLET 40 MG PO (09:23)
[2023-07-18 09:39] LABS: Iron 24 ug/dL (37-170)
[2023-07-18 09:49] LABS: Percent Iron Saturation 11 % (20-50)
--- NOTE | 2023-07-18 09:58 | WPDGICN ---
Assessment and Plan Assessment and plan (1) Left lower quadrant abdominal pain: Code(s): R10.32 - Left lower quadrant pain Status: Acute Assessment and Plan: this has been going on since last spring. The pain is not continuous and the episodes occur sporadically. The last 2 sound like they have the pattern of diverticulitis. Her CT scan however was unremarkable with the episode in March. This time she has what looks like an intraluminal mass, or abscess. (2) Abnormal CT scan, gastrointestinal tract: Code(s): R93.3 - Abnormal findings on diagnostic imaging of other parts of digestive tract Status: Acute Assessment and Plan: Finding show; MPRESSION:? Prominent abnormal soft tissue thickening of sigmoid colon, with 19 x 25 mm hypoattenuating mass in the sigmoid colon wall, possibly sigmoid colon carcinoma versus sigmoid colon abscess (3) Personal history of colonic polyps: Code(s): Z86.010 - Personal history of colonic polyps Status: Acute Assessment and Plan: Three polyps were removed at the time of her colonoscopy 3 years ago. Plan Colonoscopy by Dr. Arhtur tomorrow. We will begin [place] for pain control. I explained the bowel prep and the procedure to the patient. GI Consult Note Consult date/time: 07/18/23 09:58 HPI: Ifrah Plunkett is a 63 year old female abated with left lower quadrant pain that began 1 week ago. This has been going on since last spring but comes and goes. First time she had this it was after lifting 70 lb blocks of cement to build a fire pit. She had again in March for week or so. A CT scan that was done that was not revealing of anything abnormal. She has had a colonoscopy, about 3 years ago with removal of 3 polyps. On that exam it was noted that she had a few small diverticula in the sigmoid colon. She has not had fever with these episodes. She does notice that the pain causes her to be uncomfortable when she walks. He has more severe or sharp if she is having a bowel movement. Her stools have become very hard almost like small bowels and difficult to pass. When she has tried a passes stool the pain is more noticeable. There has been no blood in her stools. She denies vomiting or nausea. She denies loss of weight. Review of Systems Review of Systems: All systems reviewed & are unremarkable except as noted in HPI and below PMF[facility] Past Medical History Medical History Asthma Colon cancer screening 2020 - polyps removed and benign Dyslipidemia Surgical History Surgical History No history of previous surgery Social History Social History Years smoked: 3 Smoking status: Never smoker Tobacco type: cigarettes Alcohol intake: current Drinks per week: 2 Substance use: never Substance use type: does not use Do You Feel Safe in your Home?: Yes Lack of Transportation: No Lack of Food: Never True Current Housing: I Have Housing Concerned About Future Housing: No Difficulty Paying Gas/Electric Bills: No Difficulty Paying for Meds: No Currently Unemployed: No Education: High School Diploma/GED Difficulty w/ Childcare or Family Care: No Living arrangements: with family Spiritual care concerns: No Meds Home Medications and Allergies Home Medications Medication Instructions Recorded Confirmed Type rosuvastatin 40 mg tablet 40 mg PO DAILY 07/17/23 07/17/23 History Allergies Allergy/AdvReac Type Severity Reaction Status Date / Time No Known Allergies Allergy Verified 05/19/21 08:33 Vital Signs Vital Signs - 24 hr 07/17/23 11:44 07/17/23 11:46 07/17/23 11:47 Temperature Pulse Rate Respiratory Rate Blood Pressure 149/83 H Pulse Oximetry 100 99 100 Oxygen Delivery 07/17
[2023-07-18] MEDS: HYDROcodone/acetaminophen (*CRX) 5-325 MG TABLET 1 TAB PO ×2 (10:34→16:50)
[2023-07-18 12:14] LABS: Folic Acid > 20.0 ng/mL (2.76->20)
--- NOTE | 2023-07-18 13:47 | PM.IMPN ---
Progress Note: A&P Assessment and Plan (1) Abdominal pain: Qualifiers: Abdominal location: lower abdomen, unspecified Qualified Code(s): R10.30 - Lower abdominal pain, unspecified Code(s): R10.9 - Unspecified abdominal pain Status: Acute Assessment and Plan: CT Abd/Pelvis (03/19/23): Questionable mild wall thickening of the sigmoid colon versus underdistention. Correlate for any possibility of infectious/inflammatory colitis. CT Abd/Pelvis (07/17/23): Prominent abnormal soft tissue thickening of sigmoid colon, with 19 x 25 mm hypoattenuating mass in the sigmoid colon wall, possibly sigmoid colon carcinoma versus sigmoid colon abscess. Normal appendix. GI consulted, Virgil SAINZ. Starting liquid diet, pain management, antiemetics, and bowel regimen Docusate Q12H and miralax TID starting now. Will continue Zosyn, first dose in ED on 07/17. Planned for colonoscopy tomorrow. (2) Asthma: Qualifiers: Asthma severity: mild Asthma persistence: unspecified Asthma complication type: uncomplicated Qualified Code(s): J45.909 - Unspecified asthma, uncomplicated Code(s): J45.909 - Unspecified asthma, uncomplicated Status: Acute Assessment and Plan: No home inhalers. no SOB. No recent exacerbations. (3) Dyslipidemia: Code(s): E78.5 - Hyperlipidemia, unspecified Status: Acute Assessment and Plan: Continue rosuvastatin. Subjective Date/time seen: 07/18/23 13:47 Interval history: Patient continued to have abdominal. She did have a loose bowel movement earlier this morning. She denies any nausea, vomiting, melena and hematochezia. Patient planned for colonoscopy tomorrow. Colon prep start today. Exam Narrative: GENERAL: Comfortable, no acute distress HENMT: moist mucous membranes EYES: EOM intact b/l NECK: no lymphadenopathy RESPIRATORY: clear to auscultation CARDIO: RRR GI: soft, Lower abdominal tenderness to palpation, hypoactive bowel sounds SKIN: no rashes EXTREMITIES: no edema, redness or tenderness Objective Data Vital Signs Vital Signs: Vital Signs - 24 hr 07/17/23 13:50 07/17/23 14:00 07/17/23 14:01 Temperature Pulse Rate 76 Respiratory Rate 19 Blood Pressure 125/75 Pulse Oximetry 99 96 97 Oxygen Delivery 07/17/23 14:15 07/17/23 14:16 07/17/23 14:31 Temperature 97.8 F Pulse Rate 75 74 Respiratory Rate 17 16 Blood Pressure 129/79 131/78 Pulse Oximetry 99 98 100 Oxygen Delivery 07/17/23 14:46 07/17/23 15:01 07/17/23 15:31 Temperature 97.8 F Pulse Rate 72 74 72 Respiratory Rate 16 16 16 Blood Pressure 137/85 132/82 131/75 Pulse Oximetry 100 100 98 Oxygen Delivery 07/17/23 16:00 07/17/23 22:00 07/17/23 20:00 Temperature 98.1 F 99.2 F Pulse Rate 73 83 Respiratory Rate 16 20 Blood Pressure 124/72 118/66 Pulse Oximetry 100 91 Oxygen Delivery Room Air 07/18/23 06:20 07/18/23 08:00 Temperature 98.5 F Pulse Rate 55 L 55 L Respiratory Rate 16 16 Blood Pressure 110/65 Pulse Oximetry 92 92 Oxygen Delivery Room Air Intake/Output Intake/Output: Intake & Output 07/15/23 07/16/23 07/17/23 07/18/23 23:59 23:59 23:59 23:59 Intake Total 2450 3280 Output Total 1250 Balance 2450 2030 Meds/Results Medications: Active Medications Generic Name Dose Route Start Last Admin Trade Name Daniele PRN Reason Stop Dose Admin Acetaminophen 650 mg 07/17/23 15:09 Acetaminophen 325 Mg Tablet PO Q6H PRN Mild Pain (1-3) or Fever Hydrocodone Bitart/Acetaminophen 1 tab 07/18/23 09:58 07/18/23 10:34 Hydrocodone/Acetaminophen (*Crx) 5-325 Mg Tablet PO 1 tab Q4H PRN Administration Pain Rated 4-6 Bisacodyl 10 mg 07/18/23 15:00 Bisacodyl 5 Mg Tablet Ec PO 07/18/23 21:01 1500,2100 PATRICK Dicyclomine HCl 20 mg 07/17/23 15:09 07/18/23 05:54 Dicyclomine Hcl 10 Mg Capsule PO 20 mg QID PRN Administratio
[2023-07-18 14:00] VITALS: BP 113/60; PULSE 70; RESP 22; TEMP 37.2; O2SAT 98
[2023-07-18] MEDS: BISACODYL 5 MG TABLET EC 10 MG PO ×2 (16:50→20:12)
[2023-07-18] MEDS: polyethylene glycoL 3350 238 GM BOTTLE PO (16:50)
--- NOTE | 2023-07-18 16:50 | PC.NURSE ---
Bowel prep started @ 1640. Late - awaiting on Gatorade from dietary. RN called x3
[2023-07-18] MEDS: ONDANSETRON INJ 4 MG/2 ML VIAL IV PUSH (20:16)
[2023-07-18 20:50] VITALS: BP 134/74; PULSE 72; RESP 16; TEMP 36.7; O2SAT 99
[2023-07-18] MEDS: ACETAMINOPHEN 325 MG TABLET 650 MG PO (21:25)
[2023-07-19] VITALS (7 sets, daily range): BP systolic 106–130; BP diastolic 62–80; PULSE 64–74; RESP 16–18; TEMP 36.4–37.3; O2SAT 96–100
[2023-07-19] MEDS: PIPERACILLN/TAZ 3.375GM/NS50ML 3.375 GM/50 ML BAG IVPB ×5 (00:55→23:31)
[2023-07-19] MEDS: SODIUM CHLORIDE 0.9% IV 1,000 ML 150 ML IV CONT (04:50)
[2023-07-19 07:05] LABS: Basophils Percent Auto 0.4 % (0.2-1.2); Eosinophils Absolute Auto 0.1 K/mm3 (0-0.3); Eosinophils Percent Auto 0.6 % (0-4.4); Hematocrit 33.7 % (37.0-47.0); Hemoglobin 10.6 g/dL (12.0-15.0); Immature Granulocyte Absolute 0.04 K/mm3 (0.00-0.031); Immature Granulocyte Percent A 0.4 % (0-0.5); Lymphocytes Absolute Auto 1.31 K/mm3 (0.9-3.2); Lymphocytes Percent Auto 12.4 % (18.3-44.2); Mean Corpuscular HGB Conc 31.5 g/dl (32-36); Mean Corpuscular Volume 92.1 fl (80-100); Mean Platelet Volume 10.9 fl (7.4-10.4); Monocytes Absolute Auto 0.8 K/mm3 (0.1-0.6); Monocytes Percent Auto 7.2 % (2.6-8.5); Neutrophils Absolute Auto 8.3 K/mm3 (1.3-6.7); Platelet Count Result 233 k/mm3 (150-375); Red Blood Count 3.66 M/mm3 (4.2-5.4); White Blood Count 10.6 K/mm3 (4.5-10.0)
[2023-07-19 07:15] LABS: Anion Gap 7 mmol/L (8-16); Blood Urea Nitrogen 3 mg/dL (7-17); Calcium 8.2 mg/dL (8.4-10.2); Carbon Dioxide 20 mmol/L (22-30); Chloride 111 mmol/L (98-107); Estimated CRCL calculation 61 ml/min; Estimated Glomerular Filt Rate > 60; Glucose 97 mg/dL (65-110); Potassium 3.7 mmol/L (3.4-5.0); Sodium 138 mmol/L (137-145)
[2023-07-19] MEDS: HYDROcodone/acetaminophen (*CRX) 5-325 MG TABLET 1 TAB PO ×2 (08:15→17:03)
[2023-07-19] MEDS: LACTATED RINGERS 1,000 ML 150 ML IV CONT (12:32)
--- NOTE | 2023-07-19 12:49 | PM.IMPN ---
Progress Note: A&P Assessment and Plan (1) Abdominal pain: Qualifiers: Abdominal location: lower abdomen, unspecified Qualified Code(s): R10.30 - Lower abdominal pain, unspecified Code(s): R10.9 - Unspecified abdominal pain Status: Acute Assessment and Plan: CT Abd/Pelvis (03/19/23): Questionable mild wall thickening of the sigmoid colon versus underdistention. Correlate for any possibility of infectious/inflammatory colitis. CT Abd/Pelvis (07/17/23): Prominent abnormal soft tissue thickening of sigmoid colon, with 19 x 25 mm hypoattenuating mass in the sigmoid colon wall, possibly sigmoid colon carcinoma versus sigmoid colon abscess. Normal appendix. GI consulted, Virgil SAINZ. Starting liquid diet, pain management, antiemetics, and bowel regimen. Will continue Zosyn, first dose in ED on 07/17. Colonoscopy planned for today. (2) Asthma: Qualifiers: Asthma complication type: uncomplicated Asthma persistence: unspecified Asthma severity: mild Qualified Code(s): J45.909 - Unspecified asthma, uncomplicated Code(s): J45.909 - Unspecified asthma, uncomplicated Status: Acute Assessment and Plan: No home inhalers. no SOB. No recent exacerbations. (3) Dyslipidemia: Code(s): E78.5 - Hyperlipidemia, unspecified Status: Acute Assessment and Plan: Continue rosuvastatin. (4) Anemia: Code(s): D64.9 - Anemia, unspecified Status: Acute Assessment and Plan: Patient with a hemoglobin of 13.7 that has since dropped to 11.7 then 10.6. Anemia workup revealing iron of 24, TIBC of 212,% saturation of 11 and ferritin of 182. B12 folate within normal range. TSH normal. Patient started on iron supplement. Stool sample pending. Subjective Date/time seen: 07/19/23 12:49 Interval history: patient states that her pain is better controlled today. She had many bowel movements due to colon prep and is now having liquid bowel movements. She is scheduled to have colonoscopy later this afternoon. She denies any blood in her stool during this bowel movements. Denies any nausea or vomiting. Exam Narrative: GENERAL: Comfortable, no acute distress HENMT: moist mucous membranes EYES: EOM intact b/l NECK: no lymphadenopathy RESPIRATORY: clear to auscultation CARDIO: RRR GI: soft, Nontender, bowel sounds x4 SKIN: no rashes EXTREMITIES: no edema, redness or tenderness Objective Data Vital Signs Vital Signs: Vital Signs - 24 hr 07/18/23 14:00 07/18/23 20:50 07/18/23 20:00 Temperature 98.9 F 98.1 F Pulse Rate 70 72 Respiratory Rate 22 H 16 Blood Pressure 113/60 134/74 Pulse Oximetry 98 99 Oxygen Delivery Room Air 07/19/23 04:55 07/19/23 08:00 07/19/23 12:29 Temperature 97.5 F L 97.9 F Pulse Rate 67 67 Respiratory Rate 16 18 Blood Pressure 111/73 121/68 Pulse Oximetry 100 99 Oxygen Delivery Room Air Room Air Intake/Output Intake/Output: Intake & Output 07/16/23 07/17/23 07/18/23 07/19/23 23:59 23:59 23:59 23:59 Intake Total 2450 4500 2600 Output Total 1250 1600 Balance 2450 3250 1000 Meds/Results Medications: Active Medications Generic Name Dose Route Start Last Admin Trade Name Freq PRN Reason Stop Dose Admin Acetaminophen 650 mg 07/17/23 15:09 07/18/23 21:25 Acetaminophen 325 Mg Tablet PO 650 mg Q6H PRN Administration Mild Pain (1-3) or Fever Hydrocodone Bitart/Acetaminophen 1 tab 07/18/23 09:58 07/19/23 08:15 Hydrocodone/Acetaminophen (*Crx) 5-325 Mg Tablet PO 1 tab Q4H PRN Administration Pain Rated 4-6 Dicyclomine HCl 20 mg 07/17/23 15:09 07/18/23 05:54 Dicyclomine Hcl 10 Mg Capsule PO 20 mg QID PRN Administration Abdominal Cramping Docusate Sodium 100 mg 07/17/23 15:05 07/19/23 07:31 Docusate Sodium 100 Mg Capsule PO Not Given Q12HR PATRICK Ferrous Gluconate 324 mg 07/19/23 08:00 07/19/23 07
--- NOTE | 2023-07-19 15:52 | PM.CNGS ---
Assessment and Plan Assessment and plan (1) Diverticulitis of sigmoid colon: Code(s): K57.32 - Diverticulitis of large intestine without perforation or abscess without bleeding Status: Acute Assessment and Plan: CT scan on admission showed prominent abnormal soft tissue thickening of the sigmoid colon with fat stranding and a 19 x 25 mm mass in the sigmoid colon possibly carcinoma vs sigmoid colon abscess. No CT evidence of perforation or larger intra-abdominal abscess. Colonoscopy today with findings of sigmoid diverticulitis. She is already clinically improving with IV antibiotics. No diffuse peritoneal signs. We would recommend to continue IV antibiotics with transition to oral antibiotics on discharge. She is tolerating full liquids. Continue to advance as tolerated to low fiber. No indication for any surgical intervention at this time in the acute setting. She reportedly had a few episodes of similar more mild pain in the spring, but this is her first treated episode of diverticulitis. (2) Anemia: Code(s): D64.9 - Anemia, unspecified Status: Acute (3) Dyslipidemia: Code(s): E78.5 - Hyperlipidemia, unspecified Status: Acute Plan I have discussed the patient's case and plan of care with Dr. Velasquez. Thank you for allowing us to see the patient in consultation. History of Present Illness Consult details Consult date: 07/19/23 Reason for consult: other (Sigmoid diverticulitis) Requesting physician: Jasper Lang MD Narrative: This is a 63-year-old woman who we have been asked to see in surgical consultation for sigmoid diverticulitis. She reports having some intermittent lower abdominal pain during the spring that would resolve spontaneously. She initially thought she had pulled a muscle with heavy lifting. She did not see a medical provider until she saw her PCP in March and mentioned the previous abdominal pain. She was not longer having any issues past February and no pain at that time. He ordered an outpatient CT of the abdomen and pelvis that showed questionable mild wall thickening of the sigmoid colon at that time versus underdistention. She was not having any issues and did not have anymore pain until New Year's Veronique after eating [place] food. She developed bloating and started to have lower abdominal pain. The pain progressively worsened and she eventually came into the ER two days ago for evaluation. CT scan of the abdomen and pelvis at that time showed prominent abnormal soft tissue thickening of the sigmoid colon with fat stranding and a 19 x 25 mm mass in the sigmoid colon possibly carcinoma vs sigmoid colon abscess. WBC count was 10.2 and has remained around 10 since admission. She was admitted, started on IV Zosyn, and GI was consulted. She had a colonoscopy today that showed sigmoid diverticulitis with a small amount of pus, but no bleeding. Our service was then consulted and she is now seen on the medical floor. She is comfortable and reports feeling much better than when she was admitted. She only has very mild LLQ pain and tenderness. She is tolerating full liquids. No previous abdominal surgeries. No previously treated episodes of diverticulitis. Review of Systems Review of Systems: All systems reviewed & are unremarkable except as noted in HPI and below PMFSH Past Medical History Medical History Asthma Colon cancer screening 2020 - polyps removed and benign Dyslipidemia Surgical History Surgical History No history of previous surgery Social History Social History Years smoked: 3 Smoking status: Never smoker Tobacco type: cigarettes Alcohol intake: current Drinks per week: 2 Substance use: never Substance use type: does not use Do You Feel Safe in your Home?: Yes Lack of Transp
[2023-07-20] MEDS: HYDROcodone/acetaminophen (*CRX) 5-325 MG TABLET 1 TAB PO ×4 (04:07→23:56)
[2023-07-20 04:47] VITALS: BP 104/64; PULSE 92; RESP 16; TEMP 36.4; O2SAT 95
[2023-07-20] MEDS: PIPERACILLN/TAZ 3.375GM/NS50ML 3.375 GM/50 ML BAG IVPB ×4 (04:50→23:38)
[2023-07-20 07:03] LABS: Basophils Percent Auto 0.4 % (0.2-1.2); Eosinophils Absolute Auto 0.1 K/mm3 (0-0.3); Eosinophils Percent Auto 1.1 % (0-4.4); Hemoglobin 10.5 g/dL (12.0-15.0); Immature Granulocyte Absolute 0.04 K/mm3 (0.00-0.031); Immature Granulocyte Percent A 0.4 % (0-0.5); Lymphocytes Absolute Auto 1.52 K/mm3 (0.9-3.2); Lymphocytes Percent Auto 14.7 % (18.3-44.2); Mean Corpuscular HGB Conc 31.8 g/dl (32-36); Mean Corpuscular Hemoglobin 28.8 pg (26-34); Mean Corpuscular Volume 90.4 fl (80-100); Monocytes Absolute Auto 0.8 K/mm3 (0.1-0.6); Neutrophils Absolute Auto 7.8 K/mm3 (1.3-6.7); Neutrophils Percent Auto 75.4 % (45.5-73.1); Platelet Count Result 253 k/mm3 (150-375); Red Blood Count 3.65 M/mm3 (4.2-5.4); White Blood Count 10.3 K/mm3 (4.5-10.0)
[2023-07-20 07:18] LABS: Anion Gap 8 mmol/L (8-16); Blood Urea Nitrogen 2 mg/dL (7-17); Calcium 7.8 mg/dL (8.4-10.2); Carbon Dioxide 22 mmol/L (22-30); Chloride 107 mmol/L (98-107); Estimated CRCL calculation 54 ml/min; Estimated Glomerular Filt Rate > 60; Glucose 89 mg/dL (65-110); Potassium 3.5 mmol/L (3.4-5.0); Sodium 137 mmol/L (137-145)
--- NOTE | 2023-07-20 08:06 | WPDANESPN ---
Anes - Prog Note Post-Op Date/Time: 07/20/23 08:06 Vital Signs: Last Vital Signs Temp 36.4 C 07/20/23 04:47 Pulse 92 07/20/23 04:47 Resp 16 07/20/23 04:47 BP 104/64 07/20/23 04:47 Pulse Ox 95 07/20/23 04:47 O2 Del Method Room Air 07/19/23 20:00 Pain Score (VAS): 0 I/O: Intake & Output 07/19/23 07/20/23 07/20/23 23:59 07:59 15:59 Intake Total 1800 450 Output Total 1800 Balance 0 450 Laboratory Tests 07/20/23 06:33 07/20/23 06:33 07/20/23 06:33 WBC 10.3 H RBC 3.65 L Hgb 10.5 L Hct 33.0 L MCV 90.4 MCH 28.8 MCHC 31.8 L RDW 12.0 Plt Count 253 MPV 11.0 H Immature Gran % (Auto) 0.4 Neut % (Auto) 75.4 H Lymph % (Auto) 14.7 L Stanley % (Auto) 8.0 Eos % (Auto) 1.1 Baso % (Auto) 0.4 Lymph # (Auto) 1.52 Stanley # (Auto) 0.8 H Eos # (Auto) 0.1 Baso # (Auto) 0.0 Abs Immat Gran (auto) 0.04 H Absolute Neuts (auto) 7.8 H Absolute Nucleated RBC 0.0 Nucleated RBC % 0.0 Sodium 137 Potassium 3.5 Chloride 107 Carbon Dioxide 22 Anion Gap 8 BUN 2 L Creatinine 0.80 Estim Creat Clear Calc 54 Estimated GFR > 60 Glucose 89 Calcium 7.8 L Patient Feedback: Patient satisfied with anesthetic care.
[2023-07-20] MEDS: DOCUSATE SODIUM 100 MG CAPSULE PO ×2 (08:54→22:11)
[2023-07-20] MEDS: FERROUS GLUCONATE 324 MG TABLET PO (08:55)
[2023-07-20] MEDS: ROSUVASTATIN 10 MG TABLET 40 MG PO (08:55)
--- NOTE | 2023-07-20 10:59 | PM.PNGS ---
Progress Note: A&P Assessment and Plan (1) Diverticulitis of sigmoid colon: Code(s): K57.32 - Diverticulitis of large intestine without perforation or abscess without bleeding Status: Acute Assessment and Plan: Sigmoid diverticulitis with possible small intramural abscess. Overall clinically improving with IV antibiotics, but still having some abdominal pain requiring [facility]. No diffuse peritoneal signs. Continue antibiotics with plans to transition to oral antibiotics on discharge. Tolerating low fiber diet. Dietitian was consulted for education per patient request. Plan I have discussed the patient's case and plan of care with Dr. Velasquez. Subjective Subjective Date/Time Seen: 07/20/23 10:59 Patient reports: no new complaints, still having pain, tolerating a regular diet (low fiber), flatus and bowel movement (last BM was with her colonoscopy prep 2 days ago, had some small loose stool this am) Interval history: Patient tolerating her low-fiber diet this morning. Reports still having some sharp lower abdominal pains, about the same as yesterday. No nausea or vomiting. Still feels bloated following the colonoscopy. No other complaints at this time. She has been afebrile. White blood cell count remains around 10,000. Exam Const: General: comfortable and no acute distress GI: Inspection: non-distended GI Palp: Yes Soft to palpation, Yes Tenderness to palpation present (GI) (still fairly tender more in the suprapubic area and LLQ today), Yes Guarding due to palpation present (GI) (voluntary guarding with palpation of suprapubic area) and No Rebound tenderness present Auscultation: normal bowel sounds Objective Data Vital Signs Vital Signs: Vital Signs - 24 hr 07/19/23 12:29 07/19/23 13:24 07/19/23 13:34 Temperature 97.9 F Pulse Rate 67 67 68 Respiratory Rate 18 18 18 Blood Pressure 121/68 106/62 107/64 Pulse Oximetry 99 96 97 Oxygen Delivery Room Air Room Air Room Air 07/19/23 13:44 07/19/23 14:00 07/19/23 20:29 Temperature 98.0 F 99.2 F Pulse Rate 64 65 74 Respiratory Rate 18 16 16 Blood Pressure 130/78 129/67 126/80 Pulse Oximetry 100 99 96 Oxygen Delivery Room Air 07/19/23 20:00 07/20/23 04:47 07/20/23 08:00 Temperature 97.6 F Pulse Rate 92 Respiratory Rate 16 Blood Pressure 104/64 Pulse Oximetry 95 Oxygen Delivery Room Air Room Air Intake/Output Intake/Output: Intake & Output 07/17/23 07/18/23 07/19/23 07/20/23 23:59 23:59 23:59 23:59 Intake Total 2450 4500 4700 450 Output Total 1250 3400 Balance 2450 3250 1300 450 Meds/Results Medications: Active Medications Generic Name Dose Route Start Last Admin Trade Name Freq PRN Reason Stop Dose Admin Acetaminophen 650 mg 07/17/23 15:09 07/18/23 21:25 Acetaminophen 325 Mg Tablet PO 650 mg Q6H PRN Administration Mild Pain (1-3) or Fever Hydrocodone Bitart/Acetaminophen 1 tab 07/18/23 09:58 07/20/23 08:54 Hydrocodone/Acetaminophen (*Crx) 5-325 Mg Tablet PO 1 tab Q4H PRN Administration Pain Rated 4-6 Dicyclomine HCl 20 mg 07/17/23 15:09 07/18/23 05:54 Dicyclomine Hcl 10 Mg Capsule PO 20 mg QID PRN Administration Abdominal Cramping Docusate Sodium 100 mg 07/17/23 15:05 07/20/23 08:54 Docusate Sodium 100 Mg Capsule PO 100 mg Q12HR PATRICK Administration Ferrous Gluconate 324 mg 07/19/23 08:00 07/20/23 08:55 Ferrous Gluconate 324 Mg Tablet PO 324 mg DAILY@0800 PATRICK Administration Piperacillin/Tazobactam/Dextrose 3.375 gm in 50 mls @ 100 mls/hr 07/17/23 12:35 07/20/23 05:20 Zosyn 3.375 Gm/Ns 50 Ml IVPB Infused Q6HR PATRICK Infusion Ondansetron HCl 4 mg 07/17/23 15:09 07/18/23 20:16 Ondansetron Inj 4 Mg/2 Ml Vial IV PUSH 4 mg Q6H PRN Administration Nausea And Vomiting Polyethylene Glycol 17 gm 07/19/23 14:00 Polyethylene Glycol 3350 17 Gm Powd.Pack PO DAILY PRN Constipation Rosuvastatin Calcium 40
--- NOTE | 2023-07-20 14:12 | PM.IMPN ---
Progress Note: A&P Assessment and Plan (1) Abdominal pain: Qualifiers: Abdominal location: lower abdomen, unspecified Qualified Code(s): R10.30 - Lower abdominal pain, unspecified Code(s): R10.9 - Unspecified abdominal pain Status: Acute Assessment and Plan: CT Abd/Pelvis (03/19/23): Questionable mild wall thickening of the sigmoid colon versus underdistention. Correlate for any possibility of infectious/inflammatory colitis. CT Abd/Pelvis (07/17/23): Prominent abnormal soft tissue thickening of sigmoid colon, with 19 x 25 mm hypoattenuating mass in the sigmoid colon wall, possibly sigmoid colon carcinoma versus sigmoid colon abscess. Normal appendix. GI consulted, Virgil SAINZ. Starting liquid diet, pain management, antiemetics, and bowel regimen. Will continue Zosyn, first dose in ED on 07/17. Colonoscopy revealed diverticulitis with minimal amount of purulent drainage from the diverticula but no mass no polyps abscess or perforation. Small-sized internal hemorrhoid seen but not actively bleeding. Continue Zosyn for 1 more day then transition to p.o. antibiotics. Patient still having difficulty with pain control at this time. General surgery consulted due to diverticulitis. They have since signed off. (2) Asthma: Qualifiers: Asthma complication type: uncomplicated Asthma persistence: unspecified Asthma severity: mild Qualified Code(s): J45.909 - Unspecified asthma, uncomplicated Code(s): J45.909 - Unspecified asthma, uncomplicated Status: Acute Assessment and Plan: No home inhalers. no SOB. No recent exacerbations. (3) Dyslipidemia: Code(s): E78.5 - Hyperlipidemia, unspecified Status: Acute Assessment and Plan: Continue rosuvastatin. (4) Anemia: Code(s): D64.9 - Anemia, unspecified Status: Acute Assessment and Plan: Patient with a hemoglobin of 13.7 that has since dropped to 11.7 then 10.6. Anemia workup revealing iron of 24, TIBC of 212,% saturation of 11 and ferritin of 182. B12 folate within normal range. TSH normal. Patient started on iron supplement. Stool sample pending. Subjective Date/time seen: 07/20/23 14:12 Interval history: Patient is still struggling with some abdominal pain. She continues on IV antibiotics. She states that she is having some loose stool which is not uncommon due to taking colonoscopy prep. She has some bloating in the upper abdomen. She denies any nausea or vomiting. Will keep patient for the day of IV antibiotics and transition her to p.o. Exam Narrative: GENERAL: Comfortable, no acute distress HENMT: moist mucous membranes EYES: EOM intact b/l NECK: no lymphadenopathy RESPIRATORY: clear to auscultation CARDIO: RRR GI: soft, Lower abdominal tenderness to palpation, bowel sounds x4 SKIN: no rashes EXTREMITIES: no edema, redness or tenderness Objective Data Vital Signs Vital Signs: Vital Signs - 24 hr 07/19/23 20:29 07/19/23 20:00 07/20/23 04:47 Temperature 99.2 F 97.6 F Pulse Rate 74 92 Respiratory Rate 16 16 Blood Pressure 126/80 104/64 Pulse Oximetry 96 95 Oxygen Delivery Room Air 07/20/23 08:00 Temperature Pulse Rate Respiratory Rate Blood Pressure Pulse Oximetry Oxygen Delivery Room Air Intake/Output Intake/Output: Intake & Output 07/17/23 07/18/23 07/19/23 07/20/23 23:59 23:59 23:59 23:59 Intake Total 2450 4500 4700 450 Output Total 1250 3400 Balance 2450 3250 1300 450 Meds/Results Medications: Active Medications Generic Name Dose Route Start Last Admin Trade Name Agustinq PRN Reason Stop Dose Admin Acetaminophen 650 mg 07/17/23 15:09 07/18/23 21:25 Acetaminophen 325 Mg Tablet PO 650 mg Q6H PRN Administration Mild Pain (1-3) or Fever Hydrocodone Bitart/Acetaminophen 1 tab 07/18/23 09:58 07/20/23 08:54 Hydrocodone/Acetaminophen (*Crx) 5-325 Mg Tablet PO 1 ta
--- NOTE | 2023-07-20 14:21 | WPDGIPROGNO ---
Progress Note: A&P Assessment and Plan (1) Diverticulitis of sigmoid colon: Code(s): K57.32 - Diverticulitis of large intestine without perforation or abscess without bleeding Status: Acute Assessment and Plan: on iv abx, better since admission transition to oral abx when pain is better evaluated by surgery (2) Anemia: Code(s): D64.9 - Anemia, unspecified Status: Acute (3) Left lower quadrant abdominal pain: Code(s): R10.32 - Left lower quadrant pain Status: Acute Assessment and Plan: from diverticulitis (4) Abnormal CT scan, gastrointestinal tract: Code(s): R93.3 - Abnormal findings on diagnostic imaging of other parts of digestive tract Status: Acute Assessment and Plan: findings c/w diverticulitis Subjective Date/time seen: 07/20/23 14:21 Interval history: found sigmoid diverticulitis in colonoscopy, today more pain and she would rather stay another day Review of Systems Review of Systems: All systems reviewed & are unremarkable except as noted in HPI and below Exam Const: General: comfortable and no acute distress HENMT: Face/Nose/Sinus: Normal nares present Eyes: Sclera: sclerae normal Neck: Neck: supple Resp: Auscultation: clear to auscultation bilaterally Cardio: Rate: regular rate GI: Inspection: non-distended GI Palp: Yes Soft to palpation, Yes Tenderness to palpation present (GI) (still fairly tender more in the suprapubic area and LLQ today), Yes Guarding due to palpation present (GI) (voluntary guarding with palpation of suprapubic area) and No Rebound tenderness present Auscultation: normal bowel sounds Skin: General skin exam: normal color Neuro: Speech: normal speech Motor exam (neuro): 5/5 motor strength present throughout Extrem: General: normal to inspection Psych: Mental Status: mental status grossly normal Objective Data Vital Signs Vital Signs: Vital Signs - 24 hr 07/19/23 20:29 07/19/23 20:00 07/20/23 04:47 Temperature 99.2 F 97.6 F Pulse Rate 74 92 Respiratory Rate 16 16 Blood Pressure 126/80 104/64 Pulse Oximetry 96 95 Oxygen Delivery Room Air 07/20/23 08:00 Temperature Pulse Rate Respiratory Rate Blood Pressure Pulse Oximetry Oxygen Delivery Room Air Intake/Output Intake/Output: Intake & Output 07/17/23 07/18/23 07/19/23 07/20/23 23:59 23:59 23:59 23:59 Intake Total 2450 4500 4700 450 Output Total 1250 3400 Balance 2450 3250 1300 450 Meds/Results Medications: Active Medications Generic Name Dose Route Start Last Admin Trade Name Freq PRN Reason Stop Dose Admin Acetaminophen 650 mg 07/17/23 15:09 07/18/23 21:25 Acetaminophen 325 Mg Tablet PO 650 mg Q6H PRN Administration Mild Pain (1-3) or Fever Hydrocodone Bitart/Acetaminophen 1 tab 07/18/23 09:58 07/20/23 08:54 Hydrocodone/Acetaminophen (*Crx) 5-325 Mg Tablet PO 1 tab Q4H PRN Administration Pain Rated 4-6 Dicyclomine HCl 20 mg 07/17/23 15:09 07/18/23 05:54 Dicyclomine Hcl 10 Mg Capsule PO 20 mg QID PRN Administration Abdominal Cramping Docusate Sodium 100 mg 07/17/23 15:05 07/20/23 08:54 Docusate Sodium 100 Mg Capsule PO 100 mg Q12HR PATRICK Administration Ferrous Gluconate 324 mg 07/19/23 08:00 07/20/23 08:55 Ferrous Gluconate 324 Mg Tablet PO 324 mg DAILY@0800 [facility] Administration Piperacillin/Tazobactam/Dextrose 3.375 gm in 50 mls @ 100 mls/hr 07/17/23 12:35 07/20/23 13:21 Zosyn 3.375 Gm/Ns 50 Ml IVPB 100 mls/hr Q6HR PATRICK Administration Ondansetron HCl 4 mg 07/17/23 15:09 07/18/23 20:16 Ondansetron Inj 4 Mg/2 Ml Vial IV PUSH 4 mg Q6H PRN Administration Nausea And Vomiting Polyethylene Glycol 17 gm 07/19/23 14:00 Polyethylene Glycol 3350 17 Gm Powd.Pack PO DAILY PRN Constipation Rosuvastatin Calcium 40 mg 07/18/23 09:00 07/20/23 08:55 Rosuvastatin 10 Mg Tablet PO 40 mg D
[2023-07-20 20:00] VITALS: PULSE 79; RESP 16; O2SAT 95
[2023-07-20 22:00] VITALS: BP 118/71; PULSE 79; RESP 16; TEMP 36.6; O2SAT 95
[2023-07-21 05:24] VITALS: BP 117/66; PULSE 72; RESP 16; TEMP 36.6; O2SAT 94
[2023-07-21] MEDS: PIPERACILLN/TAZ 3.375GM/NS50ML 3.375 GM/50 ML BAG IVPB ×2 (05:59→11:53)
[2023-07-21] MEDS: polyethylene glycoL 3350 17 GM POWD.PACK PO (06:23)
[2023-07-21] MEDS: DICYCLOMINE HCL 10 MG CAPSULE 20 MG PO (06:23)
[2023-07-21 06:52] LABS: Hematocrit 32.9 % (37.0-47.0); Hemoglobin 10.6 g/dL (12.0-15.0); Mean Corpuscular HGB Conc 32.2 g/dl (32-36); Mean Corpuscular Hemoglobin 29.1 pg (26-34); Mean Corpuscular Volume 90.4 fl (80-100); Mean Platelet Volume 11.2 fl (7.4-10.4); Platelet Count Result 266 k/mm3 (150-375); Red Blood Count 3.64 M/mm3 (4.2-5.4); White Blood Count 11.1 K/mm3 (4.5-10.0)
[2023-07-21 06:53] LABS: Alanine Aminotransferase 36 U/L (6-35); Albumin Level 3.2 g/dL (3.5-5.1); Alkaline Phosphatase 100 U/L (38-126); Anion Gap 9 mmol/L (8-16); Aspartate Amino Transferase 26 U/L (14-36); Bilirubin,Total 0.5 mg/dL (0.2-1.3); Blood Urea Nitrogen 4 mg/dL (7-17); Calcium 8.4 mg/dL (8.4-10.2); Carbon Dioxide 24 mmol/L (22-30); Chloride 104 mmol/L (98-107); Estimated CRCL calculation 61 ml/min; Estimated Glomerular Filt Rate > 60; Glucose 93 mg/dL (65-110); Potassium 3.2 mmol/L (3.4-5.0); Sodium 137 mmol/L (137-145)
[2023-07-21] MEDS: DOCUSATE SODIUM 100 MG CAPSULE PO (08:28)
[2023-07-21] MEDS: ROSUVASTATIN 10 MG TABLET 40 MG PO (08:28)
[2023-07-21] MEDS: FERROUS GLUCONATE 324 MG TABLET PO (08:28)
[2023-07-21] MEDS: HYDROcodone/acetaminophen (*CRX) 5-325 MG TABLET 1 TAB PO (08:33)
[2023-07-21] MEDS: POTASSIUM CHLORIDE 20 MEQ ER TABLET 40 MEQ PO (11:52)
--- NOTE | 2023-07-21 12:37 | PM.DS ---
DS: Admitting Diagnosis Discharge Date 07/21/2023 Admitting Diagnosis ABD Pain/Possible sigmoid mass DS: Discharge Diagnosis Discharge Diagnosis (1) Diverticulitis of sigmoid colon: Code(s): K57.32 - Diverticulitis of large intestine without perforation or abscess without bleeding Status: Acute (2) Anemia: Qualifiers: Anemia type: iron deficiency Iron deficiency anemia type: inadequate dietary iron intake Qualified Code(s): D50.8 - Other iron deficiency anemias Code(s): D64.9 - Anemia, unspecified Status: Acute Plan Discharge to home -Flaygl and levofloxacin x 7 days -[place] q6hr PRN for pain -advance diet as tolerated -low residual diet/No nuts, seeds, kernels -Follow-up colonoscopy can be scheduled in 5 years -Monitor for signs of rectal bleeding, worsening ABD pain, fever or chills seek medical attention immediately -Follow-up with PCP with in 2-4 weeks following discharge -Iron supplement daily for anemia -encourage an increase in iron enriched foods DS: Summary Hospital Course Reason for hospitalization: ABD pain/R/O mass/diverticulitis of sigmoid colon Hospital Course: Patient was 63 year old female who presented to the ED with complaints of ABD pain and constipation. Patient reports having lower abdominal/suprapubic pain and bloating for stretches of 1 week per month for around 5 months over this past spring and summer (2223). Pain resolved around February and did not reoccur through May. Did have CT of the abd/pelvis in Sept which showed questionable mild wall thickening of the sigmoid colon versus underdistention.?Pain then began again in Jun. Has been worse over the last 5 days. Increased constipation since 07/12. States she has only been passing small pebbled, nonbloody stool. Saw PCP who recommended Miralax, has only taken 1 dose. Today having pain more so in left hip into left flank/L ribs. No associated N/V. Bloating extending into epigastric region without upper abdominal pain. ED w/u showed slight elevation in WBC 10.2, hgb normal at 13.7, mild bump in LFTs without elevation in total bili/alk phos/lipase, and CT of abdomen/pelvis showed a?19 x 25 mm hypoattenuating mass in the sigmoid colon wall with prominent soft tissue thickening of the sigmoid colon. No personal hx of cancer. FH of cancer - dad and brother had lung cancer, both heavy smokers. Patient reports she does not smoke (does have previous hx - only 3 years), has 1-2 glasses of wine per week, and no recreational drug use. Currently denying any body aches, fever or chills. Patient continued to have ABD pain and was unable to tolerate oral intake, GI scheduled patient for colonoscopy 07/19/2023 and patient was found to have diverticulitis of the sigmoid colon no mass. Continued patient on IV ABX therapy and advanced diet as tolerated. Patient reported improvement to ABD pain and constipation. On day of discharge patient was tolerating oral intake and pain was controlled with limited PO pain medication. Patient leukocytosis trending flat denied any fevers or chills overnight. Patient was educated on need for change in diet and signs and symptoms to monitor for. Patient was ambulatory and discharged to home on ABX therapy for diverticulitis and can have follow-up colonoscopy in 5 years per GI unless new symptoms arise. Status at Discharge Cognitive/behavioral status at discharge: Alert and oriented x 3 Functional status at discharge: independent ambulation Time Spent with Patient Time attestation: Total time spent providing and/or coordinating discharge services: Time spent: Greater than 30 minutes Exam Narrative: Physical Exam: - GENERAL: Alert and oriented x 3. No acute distress. Well-nourished. - EYES: EOMI. No scleral icterus. PERRLA. - HEENT: Moist mucous membranes. No cervical lymphadenopathy. - LUNGS: Clear to auscultation bilaterally. No accessory muscle use. - CARDIOVASCULAR: Regular rate and rhythm. No murmur.
--- NOTE | 2023-07-21 13:22 | PM.PNGS ---
Progress Note: A&P Assessment and Plan (1) Diverticulitis of sigmoid colon: Code(s): K57.32 - Diverticulitis of large intestine without perforation or abscess without bleeding Status: Acute Assessment and Plan: exam benign, rhona diet, ok to dc home c po abx and low fiber diet, f/u 2 wks Subjective Subjective Date/Time Seen: 07/21/23 13:22 Interval history: feels much better, minimal pain, rhona diet Review of Systems Review of Systems: All systems reviewed & are unremarkable except as noted in HPI and below Exam Const: General: cooperative, comfortable and no acute distress Resp: Auscultation: clear to auscultation bilaterally Cardio: Rate: regular rate Rhythm: regular rhythm GI: Inspection: normal to inspection and non-distended GI Palp: No abdominal tenderness and Yes Soft to palpation Objective Data Vital Signs Vital Signs: Vital Signs - 24 hr 07/20/23 22:00 07/20/23 20:00 07/21/23 05:24 Temperature 36.6 C 36.6 C Pulse Rate 79 79 72 Respiratory Rate 16 16 16 Blood Pressure 118/71 117/66 Pulse Oximetry 95 95 94 Oxygen Delivery Room Air Intake/Output Intake/Output: Intake & Output 07/18/23 07/19/23 07/20/23 07/21/23 23:59 23:59 23:59 23:59 Intake Total 4500 4700 1670 500 Output Total 1250 3400 700 900 Balance 3250 1300 970 -400 Meds/Results Radiology Results: ITS Impressions Abdomen/Pelvis CT 07/17/23 10:06 IMPRESSION: Prominent abnormal soft tissue thickening of sigmoid colon, with 19 x 25 mm hypoattenuating mass in the sigmoid colon wall, possibly sigmoid colon carcinoma versus sigmoid colon abscess Normal appendix Labs Labs: Laboratory Results - last 24 hr 07/21/23 06:20 WBC 11.1 H RBC 3.64 L Hgb 10.6 L Hct 32.9 L MCV 90.4 MCH 29.1 MCHC 32.2 RDW 12.0 Plt Count 266 MPV 11.2 H Sodium 137 Potassium 3.2 L Chloride 104 Carbon Dioxide 24 Anion Gap 9 BUN 4 L Creatinine 0.70 Estim Creat Clear Calc 61 Estimated GFR > 60 Glucose 93 Calcium 8.4 Total Bilirubin 0.5 AST 26 ALT 36 H Alkaline Phosphatase 100 Total Protein 6.0 L Albumin 3.2 L
--- NOTE | 2023-07-22 10:00 | PC.NURSE ---
called to say that after patient took her medications this morning, she started shaking, had chills, and goose bumps. temp 98.4. denies nausea, lightheadedness, chest pain or shortness of breath. patient that she has been having diarrhea. Family is going to reach out to the doctor. Patient advised to come back to the emergency room if symptoms continue or become worrisome.
[2023-07-24 18:45] LABS: Soluble Transferrin Receptor 1.04 mg/L (0.76-1.76)
== END 2023-07-21 13:00 | disposition home or self-care (01) | DRG 392 ==
LOC: ANHED 12:36 → ANH3MEDSUR 15:04
PROVIDERS: Internal Medicine Critical Care Medicine; Internal Medicine Gastroenterology; Student in an Organized Health Care Education/Training Program; Admitting Provider General Practice; Emergency Provider Emergency Medicine; PCP Internal Medicine; Visit Provider Nurse Practitioner Family
PROC: 0DJD8ZZ Inspection of Lower Intestinal Tract, Via Natural or Artificial Opening Endoscopic (ICD-10-PCS; CPT 45378; principal; 2023-07-19 13:30)
DX: K57.20 Diverticulitis of large intestine with perforation and abscess without bleeding (principal); K64.8 Other hemorrhoids; D50.8 Other iron deficiency anemias; E78.5 Hyperlipidemia, unspecified; J45.909 Unspecified asthma, uncomplicated; K59.00 Constipation, unspecified; Z86.010 Personal history of colon polyps
CPT/HCPCS: 36415; 74177; 80048; 80053; 81001; 82607; 82728; 82746; 83540; 83550; 83605; 83690; 84238; 84443; 85025; 85027; 96361; 96365; 96366; 96375; 99285; A9270; G0378; J2405; J2543; J2704; J7030; J7120; Q9967

== ENCOUNTER 2023-07-22 16:38 | Emergency (ER) | payer BC, SELFPAY ==
--- NOTE | ~2023-07-22 | XR_ITS ---
Clinical Indication: Fever PA and lateral views of the chest: Comparison: None Findings: Minimal pleural effusions are present. Lungs are otherwise clear. Cardiomediastinal silhou ette is within normal limits. Bones and soft tissues are unremarkable. Impression: Minimal pleural effusions. Reviewed, dictated and finalized at location . [employer] PROFESSOR Impression: Minimal pleural effusions.
--- NOTE | ~2023-07-22 | CT_ITS ---
CT of the Abdomen and Pelvis: Indication: Abdominal pain Technique: 2.5 mm axial scans were obtained through the abdomen and pelvis following intravenous adm inistration of 100 cc of Omnipaque 350. Dose reduction technique was used on this scan by utilizing a utomated exposure control and iterative reconstruction technique. The dose-length product (DLP) was 4 53.85 mGy-cm. COMPARISON: 07/17/2023 Findings: Scans through the lung bases demonstrate small bilateral pleural effusions with mild bibas ilar atelectatic change3. The liver, spleen, pancreas, gallbladder, adrenals and kidneys are within normal limits. No evidence of aortic aneurysm. No lymphadenopathy. Wall thickening of the distal sigmoid colon is again present, with again identified intramural absces s measuring 3.0 x 2.0 cm, similar to prior exam. There is pericolonic inflammatory change in this reg ion. No bowel obstruction. No free air evident. Images through the pelvis were performed. Urinary bladder unremarkable. No adnexal mass seen. No asci cody. Impression: Colitis versus diverticulitis of the distal sigmoid colon with 3.0 x 2.0 cm intramural abscess. Findi ngs are similar to prior exam. Neoplastic lesion felt to be less likely given the overall appearance. Small bilateral pleural effusions. Reviewed, dictated and finalized at [facility]. CARE TECHNICIAN Impression: Colitis versus diverticulitis of the distal sigmoid colon with 3.0 x 2.0 cm int ramural abscess. Findings are similar to prior exam. Neoplastic lesion felt to be less likely given the overall appearance. Small bilateral pleural effusions.
[2023-07-22 16:50] VITALS: BP 121/51; PULSE 96; RESP 16; TEMP 37.2; O2SAT 96
[2023-07-22 22:51] VITALS: BP 135/68; PULSE 87; RESP 16; TEMP 37.2; O2SAT 99
--- NOTE | 2023-07-22 23:31 | ED.FEVER ---
HPI - Fever General Chief Complaint: Recheck/Abnormal Lab/Rx <KENNETH Montero Last Filed: 07/31/23 17:19> Stated Complaint: fever, chills <KENNETH Montero Last Filed: 07/31/23 17:19> Time Seen by Provider: 07/22/23 23:16 <KENNETH Montero Last Filed: 07/31/23 17:19> Source: patient <KENNETH Montero Last Filed: 07/31/23 17:19> Mode of arrival: ambulatory <KENNETH Montero Last Filed: 07/31/23 17:19> Limitations: no limitations <KENNETH Montero Last Filed: 07/31/23 17:19> History of Present Illness HPI Narrative: This is a 63 year old female that presents to the ER for fevers today. Reports she was recently admitted and diagnosed with diverticulitis. She was discharged yesterday. She is taking oral antibiotics. Reports today she started to develops fevers and chills. Does report some ongoing crampy abdominal pain. Denies cough, congestion, sore throat, dysuria. <KENNETH Montero Last Filed: 07/31/23 17:19> Related Data Home Medications: Home Medications Medication Instructions Recorded Confirmed rosuvastatin 40 mg tablet 40 mg PO DAILY 07/17/23 07/17/23 <KENNETH Montero Last Filed: 07/31/23 17:19> Allergies/Adverse Reactions: Allergies Allergy/AdvReac Type Severity Reaction Status Date / Time No Known Allergies Allergy Verified 07/22/23 16:39 <KENNETH Montero Last Filed: 07/31/23 17:19> Review of Systems Review of Systems: CONSTITUTIONAL: Reports fever, chills ENT: Denies rhinorrhea, congestion, sore throat CARDIOVASCULAR: Denies chest pain RESPIRATORY: Denies dyspnea. GASTROINTESTINAL: Reports abdominal pain, nausea, and diarrhea. GENITOURINARY: Denies dysuria <KENNETH Montero Last Filed: 07/31/23 17:19> All systems reviewed & are unremarkable except as noted in HPI and below <Mery Shaw PA-C - Last Filed: 07/31/23 17:19> [facility] Past Medical History Medical History: Medical History Asthma Colon cancer screening 2020 - 3 polyps removed and benign Dyslipidemia <Mery Shaw PA-C - Last Filed: 07/31/23 17:19> Surgical History Surgical History: Surgical History No history of previous surgery <Mery Shaw PA-C - Last Filed: 07/31/23 17:19> Social History Social History: Social History Years smoked: 3 Smoking status: Never smoker Tobacco type: cigarettes Alcohol intake: current Drinks per week: 2 Substance use: never Substance use type: does not use Do You Feel Safe in your Home?: Yes Lack of Transportation: No Lack of Food: Never True Current Housing: I Have Housing Concerned About Future Housing: No Difficulty Paying Gas/Electric Bills: No Difficulty Paying for Meds: No Currently Unemployed: No Education: High School Diploma/GED Difficulty w/ Childcare or Family Care: No Living arrangements: with family Spiritual care concerns: No <Mery Shaw PA-C - Last Filed: 07/31/23 17:19> Exam Narrative: GENERAL: Well-appearing, well-nourished, and in no acute distress. HEAD: Normocephalic, atraumatic. EYES: PERRLA and EOMI. ENT: Nares clear, no rhinorrhea or epistaxis. Mucous membranes moist. Oropharynx without tonsillar hypertrophy exudate or other lesions. Bilateral TMs pearly barlow non-bulging NECK: Supple. No adenopathy or masses. CHEST: Clear to auscultation. No respiratory distress. No wheezes rales or rhonchi HEART: Regular rate and rhythm. No murmur heard. Normal peripheral pulses. ABDOMEN: Soft, nondistended, normal active bowel sounds. Mild tenderness to palpation throughout the abdomen, without guarding EXTREMITIES: Normal range of motion. No edema. SKIN: Warm, dry, no rash. NEURO: No focal deficits. Alert and oriented x3.
[2023-07-22 23:46] LABS: Basophils Percent Auto 0.3 % (0.2-1.2); Eosinophils Percent Auto 0.1 % (0-4.4); Hematocrit 35.3 % (37.0-47.0); Hemoglobin 11.5 g/dL (12.0-15.0); Immature Granulocyte Absolute 0.05 K/mm3 (0.00-0.031); Immature Granulocyte Percent A 0.3 % (0-0.5); Lymphocytes Absolute Auto 0.66 K/mm3 (0.9-3.2); Lymphocytes Percent Auto 4.4 % (18.3-44.2); Mean Corpuscular HGB Conc 32.6 g/dl (32-36); Mean Corpuscular Hemoglobin 28.7 pg (26-34); Mean Platelet Volume 10.6 fl (7.4-10.4); Monocytes Absolute Auto 0.4 K/mm3 (0.1-0.6); Monocytes Percent Auto 2.4 % (2.6-8.5); Neutrophils Absolute Auto 13.8 K/mm3 (1.3-6.7); Neutrophils Percent Auto 92.5 % (45.5-73.1); Platelet Count Result 332 k/mm3 (150-375); Red Blood Count 4.01 M/mm3 (4.2-5.4); Red Cell Distribution Width 12.1 % (11.5-14.5); White Blood Count 14.9 K/mm3 (4.5-10.0)
[2023-07-22 23:59] LABS: Alanine Aminotransferase 82 U/L (6-35); Albumin Level 3.4 g/dL (3.5-5.1); Alkaline Phosphatase 165 U/L (38-126); Anion Gap 10 mmol/L (8-16); Aspartate Amino Transferase 93 U/L (14-36); Bilirubin,Total 0.4 mg/dL (0.2-1.3); Blood Urea Nitrogen 5 mg/dL (7-17); Calcium 8.5 mg/dL (8.4-10.2); Carbon Dioxide 22 mmol/L (22-30); Chloride 105 mmol/L (98-107); Estimated CRCL calculation 54 ml/min; Estimated Glomerular Filt Rate > 60; Glucose 114 mg/dL (65-110); Lipase 23 U/L (23-300); Potassium 3.3 mmol/L (3.4-5.0); Sodium 137 mmol/L (137-145)
[2023-07-23 00:23] LABS: Influenza A QL RT-PCR Negative (Negative); Influenza B QL RT-PCR Negative (Negative); RSV RNA, RT-PCR Negative (Negative); SARS-CoV-2 RNA PCR Negative (Negative)
[2023-07-23 00:32] LABS: Appearance Urine Clear (Clear); Blood Urine Trace-intact (Negative); Color Urine Yellow (Yellow); Glucose Urine UA Negative (Negative); Ketones Urine 2+ mg/dL (Negative); Protein Urine 2+ mg/dL (Negative); pH Urine >=9.0 (5.0-9.0)
[2023-07-23 00:33] LABS: Bacteria Urine Trace /hpf; Bilirubin Urine Negative (Negative); Leukocyte Esterase Ur Trace LEU/UL (Negative); Nitrate Urine Negative (Negative); Squamous Epithelial Cell Urine Few /hpf (Few); Urobilinogen Urine 0.2 mg/dL (<2.0)
[2023-07-23 00:36] LABS: Add Urine Microscopic? YES
[2023-07-23] MEDS: SODIUM CHLORIDE 0.9% IV 1,000 ML 999 ML IV CONT (00:54)
[2023-07-23 02:40] VITALS: BP 138/86; PULSE 81; RESP 16; O2SAT 97
[2023-07-23] MEDS: KETOROLAC 15 MG/ML VIAL (*BKC) IV PUSH (02:51)
[2023-07-23] MEDS: POTASSIUM CHLORIDE INJ 40 MEQ in SODIUM CHLORIDE 0.9% IV 500 ML 130 MEQ IVPB (03:10)
[2023-07-23 03:49] VITALS: BP 125/65; PULSE 71; RESP 15; O2SAT 96
[2023-07-23 06:17] VITALS: BP 116/68; PULSE 76; RESP 16; O2SAT 98
== END 2023-07-23 06:19 | disposition home or self-care (01) ==
PROVIDERS: Physician Assistant; Emergency Provider Emergency Medicine
DX: K57.32 Diverticulitis of large intestine without perforation or abscess without bleeding (principal); E87.6 Hypokalemia; Z20.822 Contact with and (suspected) exposure to COVID-19; J45.909 Unspecified asthma, uncomplicated; E78.5 Hyperlipidemia, unspecified; Z86.010 Personal history of colon polyps
CPT/HCPCS: 36415; 71046; 74177; 80053; 81001; 83690; 83735; 85025; 87637; 96361; 96365; 96366; 96375; 99284; J1885; J3480; J7030; J7040; Q9967

== ENCOUNTER 2023-08-26 14:24 | Outpatient (RCR) | payer BC, SELFPAY ==
[2023-08-26 14:50] VITALS: BP_SYST 95
--- NOTE | 2023-08-26 15:31 | OPREHPOC ---
Outpatient Therapy Plan of Care This is a Multidisciplinary Plan of Care that may contain components documented by all disciplines (PT, OT, and ST.) PT Problem 1 PT Problem #1 Knowledge Deficit PT Goal 1 Goal 1. independent and compliant with HEP Target Visit 6 PT Problem 2 PT Problem #2 Pain PT Goal 1 Goal 1. patient to report no more than 2/10 pain in the L shoulder. Target Visit 12 PT Problem 3 PT Problem #3 Impaired Range of Motion PT Goal 1 Goal 1. passive L shoulder flexion to 160 degrees 2. passive L shoulder ER to 90 degrees 3. passive L shoulder IR to 65 degrees Target Visit 12 PT Goal 2 Goal 1. patient to achieve 155 degrees or better active shoulder flexion Target Visit 12 PT Problem 4 PT Problem #4 Impaired Strength PT Goal 1 Goal 1. 4+/5 or better L shoulder strength 2. 5/5 L elbow strength Target Visit 12 PT Problem 5 PT Problem #5 Impaired Functional Mobil PT Goal 1 Goal 1. quick dash to display 10% or less functional deficits 2. patient to achieve L UE reach behind head to the shirt collar 3. patient to achieve L UE reach behind back to the bra line 4. patient to lift 5lbs from waist to overhead shelf Target Visit 12
--- NOTE | 2023-08-26 15:31 | PTOPEVAL1 ---
Assessment and note entered by JT File, PT Evaluation Information Assessment Status Evaluation Diagnosis L shoulder pain Onset 06/11/23 Subjective Information patient reports she has been having shoulder pain in the L shoulder since June or so. she reports she is unable to reach behind head back or overhead. she reports. she reports no injury. she reports she has had x-rays of the L shoulder ( negative). she reports she was not approved for an MRI yet. she reports she did have an injection to the L shoulder last week. she reports the shoulder is not any better since the injection. Reported Pain Level Pain Score 2: Self Report Assessment PT Clinical Summary mrs. abraham is a 63 yo woman who presents to skilled PT services to evaluation and treatment of L shoulder pain. upon examination today, she displays decreased L shoulder active and passive rom, firm end feels, weakness and pain in the L shoulder, and several positive specials test of the L shoulder. she likely has adhesive capsulitis from a RTC tendonitis. continued skilled PT is indicated to improve her objective/functional deficits and progress towards a return to her prior level functional activity performance and quality of life. Plan of Care Interventions Electrical Stimulation,Hot Pack/Cold Pack,Manual Therapy,Neuro Re-education,Patient/Caregiver Educati,Therapeutic Activities,Therapeutic Exercise PT Services Indicated Yes Treatment Frequency and 3x weekly for 12 visits Duration These treatments will address the objective and functional deficits as defined above. The patient will be advanced safely and appropriately in order for the patient to progress towards his/her prior level of function. Additional exercises will be introduced and as well as a comprehensive home exercise program upon discharge, if needed, ?to ensure carryover of functional gains achieved in the clinic. This treatment plan has been reviewed and agreement upon by the patient.
[2023-09-17 09:30] VITALS: BP_SYST 115
--- NOTE | 2023-09-17 10:30 | OPREHPOC ---
Outpatient Therapy Plan of Care This is a Multidisciplinary Plan of Care that may contain components documented by all disciplines (PT, OT, and ST.) PT Problem 1 PT Problem #1 Knowledge Deficit PT Goal 1 Goal 1. independent and compliant with HEP Target Visit 6 Progress Met PT Problem 2 PT Problem #2 Pain PT Goal 1 Goal 1. patient to report no more than 2/10 pain in the L shoulder. Target Visit 12 Progress Not Met PT Problem 3 PT Problem #3 Impaired Range of Motion PT Goal 1 Goal 1. passive L shoulder flexion to 160 degrees 2. passive L shoulder ER to 90 degrees 3. passive L shoulder IR to 65 degrees. met Target Visit 12 Progress Partially Met PT Goal 2 Goal 1. patient to achieve 155 degrees or better active shoulder flexion Target Visit 12 Progress Not Met PT Problem 4 PT Problem #4 Impaired Strength PT Goal 1 Goal 1. 4+/5 or better L shoulder strength 2. 5/5 L elbow strength Target Visit 12 Progress Not Met PT Problem 5 PT Problem #5 Impaired Functional Mobil PT Goal 1 Goal 1. quick dash to display 10% or less functional deficits 2. patient to achieve L UE reach behind head to the shirt collar 3. patient to achieve L UE reach behind back to the bra line. met 4. patient to lift 5lbs from waist to overhead shelf Target Visit 12 Progress Partially Met
--- NOTE | 2023-09-17 10:30 | PTOPDC ---
Assessment and note entered by JT File, PT Evaluation Information Assessment Status Progress Diagnosis L shoulder pain Onset 06/11/23 Subjective Information patient reports the L shoulder is better. she reports her rom is improved and she can reach behind he head and back more easily. she reports she does not want to do any more back cracking as she is still sore from the last bout. Reported Pain Level Pain Score 4: Self Report Assessment PT Clinical Summary mrs. abraham presents to skilled PT for her 10th skilled therapy visit today. her treatment thus far has consisted of exercises and activities for increased shoulder rom/strength, manual therapy for increased rom, and modalities for pain . she has shown significant improvements in shoulder rom thus far. she would benefit from continued skilled PT to address her remaining rom, strength, pain, and functional deficits to achieve all goals for skilled PT. Plan of Care PT Services Indicated Yes
--- NOTE | 2023-09-23 14:32 | OPREHPOC ---
Outpatient Therapy Plan of Care This is a Multidisciplinary Plan of Care that may contain components documented by all disciplines (PT, OT, and ST.) PT Problem 1 PT Problem #1 Knowledge Deficit PT Goal 1 Goal 1. independent and compliant with HEP Target Visit 6 Progress Met PT Problem 2 PT Problem #2 Pain PT Goal 1 Goal 1. patient to report no more than 2/10 pain in the L shoulder. Target Visit 18 Progress Not Met PT Problem 3 PT Problem #3 Impaired Range of Motion PT Goal 1 Goal 1. passive L shoulder flexion to 160 degrees 2. passive L shoulder ER to 90 degrees 3. passive L shoulder IR to 65 degrees. met Target Visit 18 Progress Partially Met PT Goal 2 Goal 1. patient to achieve 155 degrees or better active shoulder flexion Target Visit 18 Progress Not Met PT Problem 4 PT Problem #4 Impaired Strength PT Goal 1 Goal 1. 4+/5 or better L shoulder strength 2. 5/5 L elbow strength Target Visit 18 Progress Partially Met PT Problem 5 PT Problem #5 Impaired Functional Mobil PT Goal 1 Goal 1. quick dash to display 10% or less functional deficits 2. patient to achieve L UE reach behind head to the shirt collar. met 3. patient to achieve L UE reach behind back to the bra line. met 4. patient to lift 5lbs from waist to overhead shelf Target Visit 18 Progress Partially Met
--- NOTE | 2023-09-23 14:32 | PTOPREEVAL ---
Assessment and note entered by JT File, PT Evaluation Information Assessment Status Re-evaluation Diagnosis L shoulder pain Onset 06/11/23 Subjective Information patient reports she is better overall, but not back to her prior level yet. she reports she has noticed great improvements in strength and rom of the L shoulder. she still has some symptoms in the sternum with lifting across body and overhead. Reported Pain Level Pain Score 2: Self Report Assessment PT Clinical Summary mrs. abraham presents to skilled PT for her 12th skilled therapy visit. she has again made progress towards rom and strength goals. however, she continues to lack achievement of rom, strength , pain, and functional goals set forth at her initial evaluation. continued skilled PT is advised to further improve the patients objective/ functional performance and achieve all remaining goals to return to improve her quality of life. Plan of Care Interventions Electrical Stimulation,Hot Pack/Cold Pack,Manual Therapy,Neuro Re-education,Patient/Caregiver Educati,Therapeutic Activities,Therapeutic Exercise PT Services Indicated Yes Treatment Frequency and continue skilled PT 2x weekly for 6 more visits Duration These treatments will address the objective and functional deficits as defined above. The patient will be advanced safely and appropriately in order for the patient to progress towards his/her prior level of function. Additional exercises will be introduced and as well as a comprehensive home exercise program upon discharge, if needed, ?to ensure carryover of functional gains achieved in the clinic. This treatment plan has been reviewed and agreement upon by the patient.
== END 2023-10-06 12:55 | disposition home or self-care (01) ==
LOC: CHSPT 14:24
PROVIDERS: Visit Provider Orthopaedic Surgery
DX: M75.82 Other shoulder lesions, left shoulder (principal)
CPT/HCPCS: 97014; 97110; 97140; 97161; G0283

== ENCOUNTER 2023-09-18 11:16 | Outpatient (CLI) | payer BC, SELFPAY ==
--- NOTE | ~2023-09-18 | MM_ITS ---
EXAMINATION: MM screening ángel BI w you HISTORY: Screening mammogram TECHNIQUE: Craniocaudal and mediolateral oblique 3-D tomosynthesis images were obtained and synthetic 2-D images were generated. CAD analysis was submitted and interpreted. COMPARISON: 07/30/2022, 07/28/2021 lateral screening mammogram examinations BREAST PARENCHYMAL COMPOSITION: The breasts are heterogeneously dense, which may obscure small masses . FINDINGS: There is no evidence of suspicious mass, calcification, or architectural distortion to sugg est malignancy in either breast. There has been no suspicious interval change. IMPRESSION: 1. No mammographic evidence of malignancy. 2. Recommend routine screening mammography in one year. BI-RADS Category 1: Negative Reviewed, dictated and finalized at location A.
== END 2023-09-18 11:17 | disposition home or self-care (01) ==
LOC: ANHIMG 11:24
PROVIDERS: PCP Internal Medicine; Visit Provider Obstetrics & Gynecology Gynecology
DX: Z12.31 Encounter for screening mammogram for malignant neoplasm of breast (principal)
CPT/HCPCS: 77063; 77067

== ENCOUNTER 2024-02-25 10:04 | Inpatient (IN) | payer BC, SELFPAY ==
--- NOTE | ~2024-02-25 | CT_ITS ---
CT abdomen pelvis w con Ordering provider: Ayan Sullivan MD History: 63 years Female with . pain . Comparison: None. Technique: CT abdomen and pelvis with IV and without oral contrast. Automated exposure control and it erative reconstruction technique were employed. The dose-length product was 328.71 mGy-cm. 100 mL Omn ipaque 350 was given IV. Findings: VISUALIZED LOWER CHEST: Normal. UPPER ABDOMINAL ORGANS: Liver: Normal. Gallbladder: Normal. Spleen: Normal. Stomach/duodenum: Normal. Pancreas: Normal. Adrenals: Normal. Kidneys: Tiny cyst in the left kidney midpole.. PELVIC ORGANS: The bladder is underfilled. Uterus: Normal. BOWEL AND MESENTERY: Colon: Thickening of the wall of the sigmoid colon is noted with hypodensity highly suggestive sugges tive of an abscess in the wall measuring 4 x x2.4 cm. Follow-up advised with sigmoidoscopy after reso lution Normal appendix. Small Bowel: Normal. No obstruction. Peritoneum/mesentery: No free air or free fluid. No mesenteric lymphadenopathy. RETROPERITONEUM: Mild atheromatous disease of the abdominal aorta. Separate origin of the hepatic an d splenic arteries. Narrowing at the origin of the hepatic artery. No retroperitoneal lymphadenopathy . Small para-aortic lymph nodes. MUSCULOSKELETAL: Superficial soft tissues: The superficial soft tissues are normal. Bones: Age appropriate degenerative changes of the spine. Bilateral sacroiliitis. IMPRESSION: 1. Diverticulitis with abscess formation seen in the wall of the sigmoid colon. Follow-up advised. 2. Narrowing at the origin of the hepatic artery. Reviewed, dictated and finalized at location A. IMPRESSION: 1. Diverticulitis with abscess formation seen in the wall of the sigmoid colon . Follow-up advised. 2. Narrowing at the origin of the hepatic artery.
[2024-02-25 10:08] VITALS: BP 135/73; PULSE 81; RESP 16; TEMP 36.7; O2SAT 100
[2024-02-25 10:37] LABS: Estimated CRCL calculation 61 ml/min; Estimated Glomerular Filt Rate > 60
[2024-02-25 10:41] LABS: Basophils Absolute Auto 0.1 K/mm3 (0.0-0.1); Basophils Percent Auto 0.4 % (0.2-1.2); Eosinophils Absolute Auto 0.1 K/mm3 (0-0.3); Eosinophils Percent Auto 0.6 % (0-4.4); Hematocrit 41.8 % (37.0-47.0); Hemoglobin 14.1 g/dL (12.0-15.0); Immature Granulocyte Absolute 0.06 K/mm3 (0.00-0.031); Immature Granulocyte Percent A 0.4 % (0-0.5); Lymphocytes Absolute Auto 1.65 K/mm3 (0.9-3.2); Lymphocytes Percent Auto 10.2 % (18.3-44.2); Mean Corpuscular HGB Conc 33.7 g/dl (32-36); Mean Corpuscular Hemoglobin 30.2 pg (26-34); Mean Corpuscular Volume 89.5 fl (80-100); Mean Platelet Volume 10.6 fl (7.4-10.4); Monocytes Absolute Auto 1.2 K/mm3 (0.1-0.6); Monocytes Percent Auto 7.1 % (2.6-8.5); Neutrophils Absolute Auto 13.1 K/mm3 (1.3-6.7); Neutrophils Percent Auto 81.3 % (45.5-73.1); Platelet Count Result 302 k/mm3 (150-375); Red Blood Count 4.67 M/mm3 (4.2-5.4); Red Cell Distribution Width 12.1 % (11.5-14.5); White Blood Count 16.1 K/mm3 (4.5-10.0)
[2024-02-25 10:51] LABS: Alanine Aminotransferase 16 U/L (6-35); Albumin Level 4.2 g/dL (3.5-5.1); Alkaline Phosphatase 86 U/L (38-126); Anion Gap 11 mmol/L (4-12); Aspartate Amino Transferase 22 U/L (14-36); Bilirubin,Total 0.5 mg/dL (0.2-1.3); Blood Urea Nitrogen 10 mg/dL (7-17); Calcium 9.2 mg/dL (8.4-10.2); Carbon Dioxide 24 mmol/L (22-30); Chloride 101 mmol/L (98-107); Estimated CRCL calculation 61 ml/min; Estimated Glomerular Filt Rate > 60; Glucose 91 mg/dL (65-110); Lipase 35 U/L (23-300); Potassium 3.5 mmol/L (3.4-5.0); Sodium 136 mmol/L (137-145)
[2024-02-25 10:52] LABS: Lactic Acid Reflex 1.5 mmol/L (0.7-2.0)
--- NOTE | 2024-02-25 10:59 | ED.ABDPAIN ---
HPI - Abdominal Pain General Chief Complaint: Abdominal Pain Stated Complaint: diverticulitis Time Seen by Provider: 02/25/24 10:33 History of Present Illness HPI narrative: 63-year-old female presented to the emergency department for evaluation for left lower quadrant pain. Patient does have a prior history of diverticulitis back in July. Patient was admitted for IV antibiotics at this time. Patient states on Wednesday she began having nausea and left lower quadrant pain. Patient contacted Dr. Velasquez. And was started on antibiotics on Wednesday evening. Patient states that since starting antibiotic she has had persistent abdominal pain. Patient reports decreased p.o. intake and has not had a bowel movement in the last few days. Related Data Home Medications Medication Instructions Recorded Confirmed rosuvastatin 40 mg tablet 40 mg PO DAILY 07/17/23 02/25/24 Allergies Allergy/AdvReac Type Severity Reaction Status Date / Time No Known Allergies Allergy Verified 02/25/24 12:56 Review of Systems Review of Systems: All systems reviewed & are unremarkable except as noted in HPI and below PMFSH Past Medical History Medical History Asthma Diverticulitis of sigmoid colon Dyslipidemia Personal history of colonic polyps 2020 - polyps removed, benign Surgical History Surgical History No history of previous surgery Family History Family History Father Cancer Sibling Cancer Mother Dementia Social History Social History Smoking packs per day: 0.25 Smoking cigarettes per day: 5.0 Years smoked: 3 Smoking pack-years: 0.75 Smoking status: Former smoker Tobacco type: cigarettes Alcohol intake: current Drinks per week: 2 Substance use: never Substance use type: does not use Do You Feel Safe in your Home?: Yes Lack of Transportation: No Lack of Food: Never True Current Housing: I Have Housing Concerned About Future Housing: No Difficulty Paying Gas/Electric Bills: No Difficulty Paying for Meds: No Currently Unemployed: No Education: Decline to Answer Difficulty w/ Childcare or Family Care: No Living arrangements: with family Occupation/Education: retired Spiritual care concerns: No Exam Narrative: APPEARANCE: Uncomfortable appearing secondary to abdominal pain HEAD: normocephalic, atraumatic. EYES: PERRLA/EOMI, conjunctivae clear. NOSE: Normal no drainage EARS:TMS clear with good light reflex. THROAT: Pharynx clear, no exudate. NECK: Supple. No adenopathy, no masses. RESPIRATORY: Airway patent, respirations nonlabored. Clear to auscultation bilaterally, no rales, rhonchi, wheezing. CARDIOVASCULAR: Regular rate and rhythm without murmurs rubs or gallops. ABDOMINAL: Bilateral lower abdominal tenderness worse on left than right MUSCULOSKELETAL: Moves all extremities. Strength/ROM intact, No edema, No calf tenderness. NEURO: Alert. Cranial nerves II through XII intact. Grossly intact SKIN: Warm, dry. Normal Color Course Course Emergency Course: Patient was at admitted to the hospitalist with surgery consult and IV antibiotics Vital Signs Vital signs: Vital Signs Temperature 98.1 F 02/25/24 10:08 Pulse Rate 81 02/25/24 10:08 Respiratory Rate 16 02/25/24 10:08 Blood Pressure 135/73 02/25/24 10:08 Pulse Oximetry 100 02/25/24 10:08 Temperature 99.8 F H 02/25/24 14:29 Pulse Rate 73 02/25/24 14:29 Respiratory Rate 12 02/25/24 14:29 Blood Pressure 126/66 02/25/24 14:29 Pulse Oximetry 100 02/25/24 14:29 MDM - Abdominal Pain MDM Narrative Medical decision making narrative: 63-year-old female presenting to the emergency department for evaluation for lower abdominal pain that she suspected wa
[2024-02-25] MEDS: SODIUM CHLORIDE 0.9% IV 1,000 ML 999 ML IV CONT (11:41)
[2024-02-25] MEDS: HYDROmorphone HCL INJ (*CRX) 1 MG/ML SYR 0.5 MG IV PUSH ×2 (11:42→21:10)
[2024-02-25] MEDS: ONDANSETRON INJ 4 MG/2 ML VIAL IV PUSH ×2 (11:42→20:32)
[2024-02-25] MEDS: PIPERACILLN/TAZ 3.375GM/NS50ML 3.375 GM/50 ML BAG IVPB ×2 (12:02→18:02)
[2024-02-25 12:04] VITALS: BP 115/72; PULSE 73; RESP 17; TEMP 37.2; O2SAT 100
[2024-02-25 12:43] VITALS: BMI 23.6
[2024-02-25 12:45] VITALS: BP 127/77; PULSE 72; RESP 14; TEMP 37.9; O2SAT 100
--- NOTE | 2024-02-25 12:50 | ADMGEN ---
This patient, Ifrah Plunkett, was admitted to 3 [facility] Surg Room 309-01. Patient/family oriented to hospital policies and general routines including ID bracelet, bed and alarms, visiting hours, pain management, procedures, bathroom and other care routines, personal items, smoking policy, room service/diet, and visiting hours. Information on how to activate the Rapid Response Team has been discussed. Patient/Family are encouraged to report perceived risks to care and to ask questions if they do not understand what they are told or what they should do.
--- NOTE | 2024-02-25 12:59 | PM.CNGS ---
Assessment and Plan Assessment and plan (1) Abscess of sigmoid colon due to diverticulitis: Code(s): K57.20 - Diverticulitis of large intestine with perforation and abscess without bleeding Status: Acute Assessment and Plan: I have reviewed the CT and discussed the findings with the patient. She has evidence of diverticulitis with a small intramural abscess. This appears small enough to potentially be treated with IV antibiotics alone. Will continue bowel rest and serial abdominal exams at this time. If she is showing any potentially worsening signs, follow-up imaging or surgical intervention may need to be considered. Patient has had a colonoscopy within the past year. History of Present Illness Consult details Consult date: 02/25/24 Reason for consult: other (Diverticulitis with abscess) Requesting physician: Ayan Sullivan MD Narrative: This is a 63-year-old woman who I am asked to see for recurrent diverticulitis. She presented to the emergency department this morning with left lower quadrant pain that started 5 days ago. This has continued to progress over the past 5 days and becoming more constant and severe. She denies any fevers or chills. She denies any hematochezia or melena. She did have an episode of diverticulitis about 7 months ago and was hospitalized for several days. She had a colonoscopy at that time which showed no evidence of mass. After recovering from that episode, she had been doing well up until recently. These are the only 2 episodes of diverticulitis she has ever had. CT in the emergency department today showed evidence of sigmoid diverticulitis with intramural abscess. She was started on Zosyn in the emergency department. Review of Systems Review of Systems: All systems reviewed & are unremarkable except as noted in HPI and below Constitutional: Constitutional: Reports as per HPI Eyes: Eyes: Denies change in vision ENT: Denies hearing loss, Denies neck pain and Denies sore throat Cardiovascular: Cardiovascular: Denies chest pain and Denies dyspnea Respiratory: Respiratory: Denies cough, Denies dyspnea and Denies wheezing Gastrointestinal: Gastrointestinal: Reports as per HPI Genitourinary: Genitourinary: Denies hematuria and Denies dysuria Musculoskeletal: Musculoskeletal: Denies arthralgias, Denies joint swelling and Denies neck pain Allergic/Immunologic: Allergic/Immunologic: Denies wheezing PMFSH Past Medical History Medical History Asthma Diverticulitis of sigmoid colon Dyslipidemia Personal history of colonic polyps 2020 polyps removed, benign Surgical History Surgical History No history of previous surgery Family History Family History Father Cancer Sibling Cancer Mother Dementia Social History Social History Smoking packs per day: 0.25 Smoking cigarettes per day: 5.0 Years smoked: 3 Smoking pack-years: 0.75 Smoking status: Former smoker Tobacco type: cigarettes Alcohol intake: current Drinks per week: 2 Substance use: never Substance use type: does not use Do You Feel Safe in your Home?: Yes Lack of Transportation: No Lack of Food: Never True Current Housing: I Have Housing Concerned About Future Housing: No Difficulty Paying Gas/Electric Bills: No Difficulty Paying for Meds: No Currently Unemployed: No Education: Decline to Answer Difficulty w/ Childcare or Family Care: No Living arrangements: with family Occupation/Education: retired Spiritual care concerns: No Meds Home Medications and Allergies Home Medications Medication Instructions Recorded Confirmed Type rosuvastatin 40 mg tablet 40 mg PO DAILY 07/17/23 02/25/24 History ciprofloxacin HCl 500
--- NOTE | 2024-02-25 13:01 | PM.IMHP ---
H&P: HPI History of Present Illness Date/Time: 02/25/24 13:01 Chief Complaint: Abdominal Pain Narrative: 63 y/o F presents here with left lower quadrant pain with PMH of asthma, diverticulitis, and dyslipidemia. The patient presents here from home for further evaluation of left lower quadrant pain. Patient reports initial onset abdominal pain on Wednesday (02/20) which was accompanied by nausea with one episode of vomiting last night - yellow/phlegmy. Patient contacted her general surgeon, Ron SAINZ, who placed her on Ciprofloxacin 500 mg b.i.d. times 10 days and Metronidazole 500 mg t.i.d. times 10 days.. Patient took her 1st dose on Wednesday evening and despite compliance she has continued to have persistent/constant abdominal pain and worsened in severity. Now also experiencing reduced p.o. intake and constipation. She reports her last bowel movement was on (02/21). Developed fever today -100.3? F. Denies accompanying chills, body aches, hematochezia, or melena. Last episode of diverticulitis approximately 7 months ago with subsequent hospitalization. Colonoscopy done during this admission (07/19/2023) which showed a few diverticula, diverticulitis without perforation or abscess and without bleeding, and internal hemorrhoids. Initial VS at presentation: 90.1? F, HR 81, RR 16, 135/73, and 100% on RA. ED workup showed: WBC 16.1, no anemia, creatinine 0.7 a and GFR >60, lactic 1.5. CT of the abdomen/pelvis showed diverticulitis with abscess formation seen in the wall of the sigmoid colon, narrowing of the origin of hepatic artery. Review of Systems Review of Systems: All systems reviewed & are unremarkable except as noted in HPI and below [facility] Past Medical History Medical History Asthma Diverticulitis of sigmoid colon Dyslipidemia Personal history of colonic polyps 2020 - polyps removed, benign Surgical History Surgical History No history of previous surgery Family History Family History Father Cancer Sibling Cancer Mother Dementia Social History Social History Smoking packs per day: 0.25 Smoking cigarettes per day: 5.0 Years smoked: 3 Smoking pack-years: 0.75 Smoking status: Former smoker Tobacco type: cigarettes Alcohol intake: current Drinks per week: 2 Substance use: never Substance use type: does not use Do You Feel Safe in your Home?: Yes Lack of Transportation: No Lack of Food: Never True Current Housing: I Have Housing Concerned About Future Housing: No Difficulty Paying Gas/Electric Bills: No Difficulty Paying for Meds: No Currently Unemployed: No Education: Decline to Answer Difficulty w/ Childcare or Family Care: No Living arrangements: with family Occupation/Education: retired Spiritual care concerns: No Meds Home Medications and Allergies Home Medications Medication Instructions Recorded Confirmed Type rosuvastatin 40 mg tablet 40 mg PO DAILY 07/17/23 02/25/24 History ciprofloxacin HCl 500 mg tablet 500 mg PO BID 10 days #20 tabs 02/21/24 02/25/24 Rx metronidazole 500 mg tablet 500 mg PO TID 10 days #30 tabs 02/21/24 02/25/24 Rx Allergies Allergy/AdvReac Type Severity Reaction Status Date / Time No Known Allergies Allergy Verified 02/25/24 12:56 Vital Signs Vital Signs - 24 hr 02/25/24 10:08 02/25/24 12:04 02/25/24 12:45 Temperature 98.1 F 98.9 F 100.3 F H Pulse Rate 81 73 72 Respiratory Rate 16 17 14 Blood Pressure 135/73 115/72 127/77 Pulse Oximetry 100 100 100 Exam Const: General: comfortable and no acute distress Other: , female, nontoxic appearance HENMT: Face/Nose/Sinus: Normal nares present Mouth: Yes moist mucous membranes Eyes: General: appearance norm
[2024-02-25 13:19] LABS: Add Urine Microscopic? YES; Appearance Urine Clear (Clear); Bilirubin Urine Negative (Negative); Blood Urine Negative (Negative); Color Urine Yellow (Yellow); Glucose Urine UA Negative (Negative); Ketones Urine 1+ mg/dL (Negative); Leukocyte Esterase Ur Negative LEU/UL (Negative); Nitrate Urine Negative (Negative); Protein Urine Trace mg/dL (Negative); Specific Grav Ur > 1.045 (1.001-1.035); Urobilinogen Urine 0.2 mg/dL (<2.0)
[2024-02-25 13:40] LABS: RBC Urine 0-2 /hpf (0-2); Squamous Epithelial Cell Urine Rare /hpf (Few)
[2024-02-25 14:29] VITALS: BP 126/66; PULSE 73; RESP 12; TEMP 37.7; O2SAT 100
[2024-02-25] MEDS: MORPHINE SULFATE (*CRX) 4 MG/ML INJ IV PUSH ×2 (14:36→20:32)
[2024-02-25] MEDS: DICYCLOMINE HCL 10 MG CAPSULE 20 MG PO (18:04)
[2024-02-25] MEDS: SODIUM CHLORIDE 0.9% IV 1,000 ML 125 ML IV CONT ×3 (18:08→20:32)
[2024-02-25 20:00] VITALS: PULSE 73; RESP 18; O2SAT 100
[2024-02-25] MEDS: HYDROcodone/acetaminophen (*CRX) 5-325 MG TABLET 1 TAB PO (20:00)
[2024-02-25 20:15] VITALS: BP 114/60; PULSE 73; RESP 18; TEMP 37.8; O2SAT 100
[2024-02-26] MEDS: PIPERACILLN/TAZ 3.375GM/NS50ML 3.375 GM/50 ML BAG IVPB ×4 (00:45→17:04)
[2024-02-26] MEDS: ONDANSETRON INJ 4 MG/2 ML VIAL IV PUSH (00:46)
[2024-02-26] MEDS: HYDROmorphone HCL INJ (*CRX) 1 MG/ML SYR 0.5 MG IV PUSH ×6 (00:46→20:12)
[2024-02-26] MEDS: SODIUM CHLORIDE 0.9% IV 1,000 ML 125 ML IV CONT ×3 (05:00→21:42)
[2024-02-26 05:03] VITALS: BP 104/52; PULSE 78; RESP 18; TEMP 37.3; O2SAT 97
[2024-02-26 05:44] LABS: Basophils Absolute Auto 0.1 K/mm3 (0.0-0.1); Basophils Percent Auto 0.5 % (0.2-1.2); Eosinophils Absolute Auto 0.1 K/mm3 (0-0.3); Eosinophils Percent Auto 0.4 % (0-4.4); Hematocrit 35.5 % (37.0-47.0); Hemoglobin 11.4 g/dL (12.0-15.0); Immature Granulocyte Absolute 0.06 K/mm3 (0.00-0.031); Immature Granulocyte Percent A 0.5 % (0-0.5); Lymphocytes Absolute Auto 1.64 K/mm3 (0.9-3.2); Lymphocytes Percent Auto 12.5 % (18.3-44.2); Mean Corpuscular HGB Conc 32.1 g/dl (32-36); Mean Corpuscular Hemoglobin 29.8 pg (26-34); Mean Corpuscular Volume 92.7 fl (80-100); Mean Platelet Volume 10.6 fl (7.4-10.4); Monocytes Absolute Auto 1.1 K/mm3 (0.1-0.6); Monocytes Percent Auto 8.4 % (2.6-8.5); Neutrophils Absolute Auto 10.2 K/mm3 (1.3-6.7); Neutrophils Percent Auto 77.7 % (45.5-73.1); Platelet Count Result 259 k/mm3 (150-375); Red Blood Count 3.83 M/mm3 (4.2-5.4); Red Cell Distribution Width 12.3 % (11.5-14.5); White Blood Count 13.1 K/mm3 (4.5-10.0)
[2024-02-26 05:58] LABS: Alanine Aminotransferase 10 U/L (6-35); Albumin Level 3.1 g/dL (3.5-5.1); Alkaline Phosphatase 67 U/L (38-126); Anion Gap 9 mmol/L (4-12); Aspartate Amino Transferase 18 U/L (14-36); Bilirubin,Total 0.4 mg/dL (0.2-1.3); Blood Urea Nitrogen 12 mg/dL (7-17); Calcium 8.5 mg/dL (8.4-10.2); Carbon Dioxide 21 mmol/L (22-30); Chloride 106 mmol/L (98-107); Estimated CRCL calculation 48 ml/min; Estimated Glomerular Filt Rate > 60; Glucose 74 mg/dL (65-110); Potassium 3.9 mmol/L (3.4-5.0); Sodium 136 mmol/L (137-145)
[2024-02-26] MEDS: DICYCLOMINE HCL 10 MG CAPSULE 20 MG PO ×3 (06:07→20:12)
[2024-02-26] MEDS: HYDROcodone/acetaminophen (*CRX) 5-325 MG TABLET 1 TAB PO ×2 (06:07→20:40)
--- NOTE | 2024-02-26 12:00 | PM.PNGS ---
Progress Note: A&P Assessment and Plan (1) Abscess of sigmoid colon due to diverticulitis: Code(s): K57.20 - Diverticulitis of large intestine with perforation and abscess without bleeding Status: Acute Plan Continue Zosyn Continue clear liquids today Advance diet once pain is mostly resolved Will consider repeat CT if WBC rising or fevers continue Subjective Subjective Date/Time Seen: 02/26/24 12:00 Interval history: Feeling better, pain improving. Low grade fever this AM. Bowels moving. Exam GI: Inspection: non-distended GI Palp: Yes Soft to palpation, Yes Tenderness to palpation present (GI) (LLQ), No Guarding due to palpation present (GI) and No Rebound tenderness present Auscultation: normal bowel sounds Objective Data Vital Signs Vital Signs: Vital Signs - 24 hr 02/25/24 12:04 02/25/24 12:45 02/25/24 14:29 Temperature 37.2 C 37.9 C H 37.7 C H Pulse Rate 73 72 73 Respiratory Rate 17 14 12 Blood Pressure 115/72 127/77 126/66 Pulse Oximetry 100 100 100 Oxygen Delivery 02/25/24 16:00 02/25/24 20:15 02/25/24 20:00 Temperature 37.8 C H Pulse Rate 73 73 Respiratory Rate 18 18 Blood Pressure 114/60 Pulse Oximetry 100 100 Oxygen Delivery Room Air Room Air 02/26/24 05:03 02/26/24 08:00 Temperature 37.3 C Pulse Rate 78 Respiratory Rate 18 Blood Pressure 104/52 L Pulse Oximetry 97 Oxygen Delivery Room Air Intake/Output Intake/Output: Intake & Output 02/23/24 02/24/24 02/25/24 02/26/24 23:59 23:59 23:59 23:59 Intake Total 1314.6 1050 Balance 1314.6 1050 Meds/Results Medications: Active Medications Generic Name Dose Route Start Last Admin Trade Name Freq PRN Reason Stop Dose Admin Acetaminophen 650 mg 02/25/24 13:44 Acetaminophen 325 Mg Tablet PO Q6H PRN Mild Pain (1-3) or Fever Hydrocodone Bitart/Acetaminophen 1 tab 02/25/24 13:44 02/26/24 06:07 Hydrocodone/Acetaminophen (*Crx) 5-325 Mg Tablet PO 1 tab Q6H PRN Administration Pain Rated 4-6 Dicyclomine HCl 20 mg 02/25/24 13:44 02/26/24 06:07 Dicyclomine Hcl 10 Mg Capsule PO 20 mg QID PRN Administration Abdominal Cramping Hydromorphone HCl 0.5 mg 02/26/24 00:00 02/26/24 09:18 Hydromorphone Hcl Inj (*Crx) 1 Mg/Ml Syr IV PUSH 0.5 mg Q3H PRN Administration Pain Rated 7-10 Sodium Chloride 1,000 mls @ 125 mls/hr 02/25/24 11:55 02/26/24 05:00 Normal Saline Iv IV CONT 125 mls/hr .Q8H PATRICK Administration Piperacillin/Tazobactam/Dextrose 3.375 gm in 50 mls @ 100 mls/hr 02/25/24 18:00 02/26/24 06:04 Zosyn 3.375 Gm/Ns 50 Ml IVPB 100 mls/hr Q6H PATRICK Administration Ondansetron HCl 4 mg 02/25/24 11:53 02/26/24 00:46 Ondansetron Inj 4 Mg/2 Ml Vial IV PUSH 4 mg Q4H PRN Administration Nausea Radiology Results: ITS Impressions Abdomen/Pelvis CT 02/25/24 11:03 IMPRESSION: 1. Diverticulitis with abscess formation seen in the wall of the sigmoid colon. Follow-up advised. 2. Narrowing at the origin of the hepatic artery. Labs Labs: Laboratory Results - last 24 hr 02/25/24 02/26/24 11:54 05:14 WBC 13.1 H RBC 3.83 L Hgb 11.4 L Hct 35.5 L MCV 92.7 MCH 29.8 MCHC 32.1 RDW 12.3 Plt Count 259 MPV 10.6 H Immature Gran % (Auto) 0.5 Neut % (Auto) 77.7 H Lymph % (Auto) 12.5 L [place] % (Auto) 8.4 Eos % (Auto) 0.4 Baso % (Auto) 0.5 Lymph # (Auto) 1.64 [place] # (Auto) 1.1 H Eos # (Auto) 0.1 Baso # (Auto) 0.1 Abs Immat Gran (auto) 0.06 H Absolute Neuts (auto) 10.2 H Absolute Nucleated RBC 0.000 Nucleated RBC % 0.0 Sodium 136 L Potassium 3.9 Chloride 106 Carbon Dioxide 21 L Anion Gap 9 BUN 12 Creatinine 0.90 Estim Creat Clear Calc 48 Estimated GFR > 60 Glucose 74 Calcium 8.5 Total Bilirubin 0.4 AST 18 ALT 10 Alkaline Phosphatase 67 Total Protein 6.0 L Albumin 3.1 L Urine Color Yellow Urine
[2024-02-26 16:15] VITALS: BP 107/52; PULSE 67; RESP 16; TEMP 36.9; O2SAT 99
--- NOTE | 2024-02-26 19:00 | PM.IMPN ---
Progress Note: A&P Assessment and Plan (1) Abscess of sigmoid colon due to diverticulitis: Code(s): K57.20 - Diverticulitis of large intestine with perforation and abscess without bleeding Status: Acute Assessment and Plan: - did not meet SIRS criteria, leukocytosis only. Blood cultures obtained, pending. - CT abd/pelvis: 1. Diverticulitis with abscess formation seen in the wall of the sigmoid colon. Follow-up advised. 2. Narrowing at the origin of the hepatic artery. - General Surgery consulted, Chantel SAINZ. provided following recs: CT image reviewed, small intramural abscess small enough to potentially be treated with IV antibiotics alone. Bowel rest, serial abdominal exams, IV antibiotics If patient shows worsening signs or follow-up imaging worsened, surgical intervention may need to be considered - continue Zosyn IVPB - IV fluids: 1 L bolus, now on 125 mL/hour - serial abdominal exams - monitor I&Os, NPO except ice chips and trial clear liquids tomorrow. Holding home statin until diet advanced. -surgery is following (2) Anemia: Qualifiers: Anemia type: iron deficiency Iron deficiency anemia type: inadequate dietary iron intake Qualified Code(s): D50.8 - Other iron deficiency anemias Code(s): D64.9 - Anemia, unspecified Status: Acute Assessment and Plan: - Hgb 14.1, previously ranged between 10.5-11.7. Suspect patient may be slightly concentrated due to recent reduced p.o. intake/nausea. - monitor Plan The need to consider surgical intervention if patient shows worsening abdominal exam is or if follow-up imaging has worsened. Continue pain control. Holding home statin until diet advanced. Diet: NPO except ice chips, advance diet as tolerated in the a.m. DVT Prophylaxis: SCDs Anticipated hospital stay: Observation Code Status: Full code Time Spent With Patient Time with patient: 25 - 35 minutes Subjective Date/time seen: 02/26/24 19:00 Interval history: 63-year-old female with PMHx: Of asthma, diverticulitis and dyslipidemia, reported from home with a complaint of left lower quadrant pain patient reported initial onset abdominal pain started on 02/20 which was accompanied by nausea with 1 episode of vomiting last night yellow phlegm, patient contacted her general surgeon Ricardo SAINZ who placed her on ciprofloxacin 500 mg b.i.d. for 10 days and metronidazole t.i.d. for 10 days. Reports taking her 1st dose of medication at home in still continued with persistent constant abdominal pain that worsened. 02/26/2024: Assumed care for pt today, who is sitting up in the bed, her spouse is bedside, she is in no acute distress drinking water she denies any overnight events, denies any nausea vomiting fever chills. She does report ongoing left lower quadrant pain, but she states the pain is decreased since she has been clear liquid diet. Labs were reviewed, anemia, creatinine 0.7 and GFR > 60 CT of the abdomen/pelvis showed diverticulitis with abscess formation seen in the wall of the sigmoid colon narrowing of the origin of hepatic artery Review of Systems Review of Systems: All systems reviewed & are unremarkable except as noted in HPI and below Exam Narrative: General: A well-developed, nontoxic-appearing female sitting up in bed, spouse by the bedside HEENT: PERRL, EOMI. Oral mucosa moist. Neck: Supple. No midline cervical tenderness. Respiratory: Respirations are non- labored and lungs are clear to auscultation bilaterally. Cardiovascular: Regular rate and rhythm with S1-S2. Gastrointestinal: Abdomen is soft, non-tender, and non-distended with positive bowel sounds. Skin: Warm and dry. No rash or lesions on limited exam. Extremities: No cyanosis, clubbing, or edema. Radial and pedal pulses intact. Neurological: Alert and oriented. Cranial nerves 2-12 are grossly intact. No gross focal deficits to casual conversation. Psychiatric: Pleasant and institutional research coordinator
[2024-02-26 20:00] VITALS: PULSE 76; RESP 16; O2SAT 99
[2024-02-26 21:02] VITALS: BP 114/68; PULSE 76; RESP 16; TEMP 36.8; O2SAT 99
[2024-02-27] MEDS: PIPERACILLN/TAZ 3.375GM/NS50ML 3.375 GM/50 ML BAG IVPB ×5 (00:29→23:21)
[2024-02-27] MEDS: HYDROmorphone HCL INJ (*CRX) 1 MG/ML SYR 0.5 MG IV PUSH ×4 (00:30→11:45)
[2024-02-27] MEDS: HYDROcodone/acetaminophen (*CRX) 5-325 MG TABLET 1 TAB PO ×2 (02:31→20:34)
[2024-02-27 05:15] VITALS: BP 119/65; PULSE 78; RESP 18; TEMP 37.3; O2SAT 97
[2024-02-27] MEDS: SODIUM CHLORIDE 0.9% IV 1,000 ML 125 ML IV CONT ×2 (05:25→15:00)
[2024-02-27 06:37] LABS: Hematocrit 33.1 % (37.0-47.0); Mean Corpuscular HGB Conc 33.2 g/dl (32-36); Mean Corpuscular Hemoglobin 30.3 pg (26-34); Mean Corpuscular Volume 91.2 fl (80-100); Mean Platelet Volume 10.8 fl (7.4-10.4); Platelet Count Result 277 k/mm3 (150-375); Red Blood Count 3.63 M/mm3 (4.2-5.4); Red Cell Distribution Width 12.3 % (11.5-14.5); White Blood Count 12.1 K/mm3 (4.5-10.0)
[2024-02-27 06:59] LABS: Anion Gap 8 mmol/L (4-12); Blood Urea Nitrogen 6 mg/dL (7-17); Calcium 7.9 mg/dL (8.4-10.2); Carbon Dioxide 20 mmol/L (22-30); Chloride 105 mmol/L (98-107); Estimated CRCL calculation 61 ml/min; Estimated Glomerular Filt Rate > 60; Glucose 89 mg/dL (65-110); Potassium 3.5 mmol/L (3.4-5.0); Sodium 133 mmol/L (137-145)
--- NOTE | 2024-02-27 08:06 | PM.IMPN ---
Progress Note: A&P Assessment and Plan (1) Abscess of sigmoid colon due to diverticulitis: Code(s): K57.20 - Diverticulitis of large intestine with perforation and abscess without bleeding Status: Acute Assessment and Plan: 02/27/24: CT of the abdomen pelvis showed diverticulitis with abscess formation seen in the wall of the sigmoid colon, narrowing at the origin of the hepatic artery General surgery consulted Continue Zosyn Patient tolerating clear liquid diet, will await further input with General surgery team Continue at 120 mL/hour White blood was 12.1 (2) Anemia: Qualifiers: Anemia type: iron deficiency Iron deficiency anemia type: inadequate dietary iron intake Qualified Code(s): D50.8 - Other iron deficiency anemias Code(s): D64.9 - Anemia, unspecified Status: Acute Assessment and Plan: 02/27/24: Hgb 11.0 Chronic anemia Iron level on 07/18/2023 was 24, ferritin 182, vitamin B12 730, folate greater than 20, TSH 1.86 Likely diet related Time Spent With Patient Time with patient: 25 - 35 minutes Subjective Date/time seen: 02/27/24 08:06 Interval history: Interval history: This is a 63-year-old female who presented to the hospital on 02/25/2024 with complaints of abdominal pain. She recently contacted her general surgeon Dr. Silva who placed her on Cipro and Flagyl for diverticulitis. Her pain worsened prompting her to come in for further evaluation. Workup in the hospital included abdomen pelvis CT which showed diverticulitis with abscess formation seen in the wall of the sigmoid colon, narrowing at the origin of the hepatic artery. Initial labs showed a white blood cell count of 16.1, sodium 136, lactic acid was 1.5, liver function was normal. UA was obtained and showed 1+ ketone, otherwise normal. Blood cultures showing no growth to date on preliminary read. General surgery is consulted and currently treating conservatively with IV antibiotics as the abscess is small. 02/27/24: Patient denies any fever, chills, abdominal pain, diarrhea, vomiting, chest pain, shortness a breath. She does report nausea off and on and abdominal pain which is 7/10. Labs and imaging reviewed. Review of Systems Review of Systems: All systems reviewed & are unremarkable except as noted in HPI and below Constitutional: Constitutional: Reports as per HPI and Reports no additional constitutional complaints Eyes: Eyes: Reports as per HPI and Reports no additional eye complaints ENT: Reports system reviewed and no additional complaints, except as documented and Reports as per HPI Cardiovascular: Cardiovascular: Reports as per HPI and Reports no additional cardiovascular complaints Respiratory: Respiratory: Reports as per HPI and Reports no additional respiratory complaints Gastrointestinal: Gastrointestinal: Reports as per HPI and Reports no additional gastrointestinal complaints Genitourinary: Genitourinary: Reports no additional female genitourinary complaints and Reports as per HPI Musculoskeletal: Musculoskeletal: Reports no additional musculoskeletal complaints and Reports as per HPI Integumentary/Breasts: Skin/Breast: Reports system reviewed and no additional complaints, except as docu and Reports as per HPI Neurologic: Reports system reviewed and no additional complaints, except as documented and Reports as per HPI Psychiatric: Psychiatric: Reports no additional psychiatric complaints and Reports as per HPI Exam Narrative: General: In no acute distress Head: atraumatic, no encephalopathy Eyes: EOMI, PERRLA, sclera clear ENT: moist mucous membranes, nasal passages clear Neck: supple, no JVD, no adenopathy, trachea midline Cardiac: Normal S1 and S2. RRR, No murmur, gallops or friction rubs, peripheral pulses intact. Respiratory: Lungs clear to auscultation, no adventitious lung sounds, currently on room air Gastrointestinal: soft, non-distended, non-tender, normoa
--- NOTE | 2024-02-27 12:18 | PM.PNGS ---
Progress Note: A&P Assessment and Plan (1) Abscess of sigmoid colon due to diverticulitis: Code(s): K57.20 - Diverticulitis of large intestine with perforation and abscess without bleeding Status: Acute Assessment and Plan: Continue clear liquids today as pain and WBC haven't really improved. Will consider repeat CT tomorrow if no improvement. Continue Zosyn Subjective Subjective Date/Time Seen: 02/27/24 12:18 Interval history: Still having some pain. No more fevers. Pain coming and going. Tolerating clears so far. Exam GI: Inspection: non-distended GI Palp: Yes Soft to palpation and Yes Tenderness to palpation present (GI) (epigastric and LLQ) Auscultation: normal bowel sounds Objective Data Vital Signs Vital Signs: Vital Signs - 24 hr 02/26/24 16:15 02/26/24 21:02 02/26/24 20:00 Temperature 36.9 C 36.8 C Pulse Rate 67 76 76 Respiratory Rate 16 16 16 Blood Pressure 107/52 L 114/68 Pulse Oximetry 99 99 99 Oxygen Delivery Room Air 02/27/24 05:15 Temperature 37.3 C Pulse Rate 78 Respiratory Rate 18 Blood Pressure 119/65 Pulse Oximetry 97 Oxygen Delivery Intake/Output Intake/Output: Intake & Output 02/24/24 02/25/24 02/26/24 02/27/24 23:59 23:59 23:59 23:59 Intake Total 1314.6 3627.5 1614.6 Balance 1314.6 3627.5 1614.6 Meds/Results Medications: Active Medications Generic Name Dose Route Start Last Admin Trade Name Freq PRN Reason Stop Dose Admin Acetaminophen 650 mg 02/25/24 13:44 Acetaminophen 325 Mg Tablet PO Q6H PRN Mild Pain (1-3) or Fever Hydrocodone Bitart/Acetaminophen 1 tab 02/25/24 13:44 02/27/24 02:31 Hydrocodone/Acetaminophen (*Crx) 5-325 Mg Tablet PO 1 tab Q6H PRN Administration Pain Rated 4-6 Dicyclomine HCl 20 mg 02/25/24 13:44 02/26/24 20:12 Dicyclomine Hcl 10 Mg Capsule PO 20 mg QID PRN Administration Abdominal Cramping Hydromorphone HCl 0.5 mg 02/26/24 00:00 02/27/24 11:45 Hydromorphone Hcl Inj (*Crx) 1 Mg/Ml Syr IV PUSH 0.5 mg Q3H PRN Administration Pain Rated 7-10 Sodium Chloride 1,000 mls @ 125 mls/hr 02/25/24 11:55 02/27/24 05:25 Normal Saline Iv IV CONT 125 mls/hr .Q8H PATRICK Administration Piperacillin/Tazobactam/Dextrose 3.375 gm in 50 mls @ 100 mls/hr 02/25/24 18:00 02/27/24 11:45 Zosyn 3.375 Gm/Ns 50 Ml IVPB 100 mls/hr Q6H PATRICK Administration Ondansetron HCl 4 mg 02/25/24 11:53 02/26/24 00:46 Ondansetron Inj 4 Mg/2 Ml Vial IV PUSH 4 mg Q4H PRN Administration Nausea Rosuvastatin Calcium 40 mg 02/28/24 09:00 Rosuvastatin 20 Mg Tablet PO DAILY [facility] Radiology Results: ITS Impressions Abdomen/Pelvis CT 02/25/24 11:03 IMPRESSION: 1. Diverticulitis with abscess formation seen in the wall of the sigmoid colon. Follow-up advised. 2. Narrowing at the origin of the hepatic artery. Labs Labs: Laboratory Results - last 24 hr 02/27/24 05:55 WBC 12.1 H RBC 3.63 L Hgb 11.0 L Hct 33.1 L MCV 91.2 MCH 30.3 MCHC 33.2 RDW 12.3 Plt Count 277 MPV 10.8 H Sodium 133 L Potassium 3.5 Chloride 105 Carbon Dioxide 20 L Anion Gap 8 BUN 6 L D Creatinine 0.70 Estim Creat Clear Calc 61 Estimated GFR > 60 Glucose 89 Calcium 7.9 L
[2024-02-27 14:00] VITALS: BP 120/62; PULSE 78; RESP 18; TEMP 37.2; O2SAT 97
[2024-02-27 20:54] VITALS: BP 109/56; PULSE 96; RESP 16; TEMP 37; O2SAT 100
[2024-02-28] MEDS: HYDROcodone/acetaminophen (*CRX) 5-325 MG TABLET 1 TAB PO ×3 (02:04→20:40)
[2024-02-28 06:00] VITALS: BP 108/59; PULSE 83; RESP 16; TEMP 36.4; O2SAT 95
[2024-02-28] MEDS: SODIUM CHLORIDE 0.9% IV 1,000 ML 75 ML IV CONT (06:10)
[2024-02-28] MEDS: PIPERACILLN/TAZ 3.375GM/NS50ML 3.375 GM/50 ML BAG IVPB ×3 (06:10→17:03)
[2024-02-28 06:49] LABS: Hematocrit 32.6 % (37.0-47.0); Hemoglobin 11.1 g/dL (12.0-15.0); Mean Corpuscular Hemoglobin 30.2 pg (26-34); Mean Corpuscular Volume 88.8 fl (80-100); Mean Platelet Volume 10.8 fl (7.4-10.4); Platelet Count Result 315 k/mm3 (150-375); Red Blood Count 3.67 M/mm3 (4.2-5.4); Red Cell Distribution Width 12.3 % (11.5-14.5); White Blood Count 11.3 K/mm3 (4.5-10.0)
[2024-02-28 07:00] LABS: Anion Gap 5 mmol/L (4-12); Blood Urea Nitrogen 2 mg/dL (7-17); Calcium 8.3 mg/dL (8.4-10.2); Carbon Dioxide 25 mmol/L (22-30); Chloride 107 mmol/L (98-107); Estimated CRCL calculation 61 ml/min; Estimated Glomerular Filt Rate > 60; Glucose 95 mg/dL (65-110); Potassium 3.7 mmol/L (3.4-5.0); Sodium 137 mmol/L (137-145)
[2024-02-28 08:00] VITALS: PULSE 83; RESP 16; O2SAT 97
[2024-02-28 08:42] VITALS: O2SAT 97
[2024-02-28] MEDS: ROSUVASTATIN 20 MG TABLET 40 MG PO (08:59)
--- NOTE | 2024-02-28 13:45 | PM.PNGS ---
Progress Note: A&P Assessment and Plan (1) Abscess of sigmoid colon due to diverticulitis: Code(s): K57.20 - Diverticulitis of large intestine with perforation and abscess without bleeding Status: Acute Assessment and Plan: Advance diet to low fiber as tolerated Continue Zosyn Possibly home tomorrow Subjective Subjective Date/Time Seen: 02/28/24 13:45 Interval history: Pain minimal now. no fevers. Bowels moving. Exam GI: Inspection: non-distended GI Palp: Yes Soft to palpation and Yes Tenderness to palpation present (GI) (minimal LLQ) Auscultation: normal bowel sounds Objective Data Vital Signs Vital Signs: Vital Signs - 24 hr 02/27/24 14:00 02/27/24 20:54 02/28/24 06:00 Temperature 37.2 C 37.0 C 36.4 C Pulse Rate 78 96 83 Respiratory Rate 18 16 16 Blood Pressure 120/62 109/56 L 108/59 L Pulse Oximetry 97 100 95 Oxygen Delivery Fraction of Inspired Oxygen 02/28/24 08:42 Temperature Pulse Rate Respiratory Rate Blood Pressure Pulse Oximetry 97 Oxygen Delivery Room Air Fraction of Inspired Oxygen 21 Intake/Output Intake/Output: Intake & Output 02/25/24 02/26/24 02/27/24 02/28/24 23:59 23:59 23:59 23:59 Intake Total 1314.6 3627.5 4664.6 930 Balance 1314.6 3627.5 4664.6 930 Meds/Results Medications: Active Medications Generic Name Dose Route Start Last Admin Trade Name Freq PRN Reason Stop Dose Admin Acetaminophen 650 mg 02/25/24 13:44 Acetaminophen 325 Mg Tablet PO Q6H PRN Mild Pain (1-3) or Fever Hydrocodone Bitart/Acetaminophen 1 tab 02/25/24 13:44 02/28/24 08:59 Hydrocodone/Acetaminophen (*Crx) 5-325 Mg Tablet PO 1 tab Q6H PRN Administration Pain Rated 4-6 Dicyclomine HCl 20 mg 02/25/24 13:44 02/26/24 20:12 Dicyclomine Hcl 10 Mg Capsule PO 20 mg QID PRN Administration Abdominal Cramping Hydromorphone HCl 0.5 mg 02/26/24 00:00 02/27/24 11:45 Hydromorphone Hcl Inj (*Crx) 1 Mg/Ml Syr IV PUSH 0.5 mg Q3H PRN Administration Pain Rated 7-10 Piperacillin/Tazobactam/Dextrose 3.375 gm in 50 mls @ 100 mls/hr 02/25/24 18:00 02/28/24 12:38 Zosyn 3.375 Gm/Ns 50 Ml IVPB 100 mls/hr Q6H PATRICK Administration Ondansetron HCl 4 mg 02/25/24 11:53 02/26/24 00:46 Ondansetron Inj 4 Mg/2 Ml Vial IV PUSH 4 mg Q4H PRN Administration Nausea Rosuvastatin Calcium 40 mg 02/28/24 09:00 02/28/24 08:59 Rosuvastatin 20 Mg Tablet PO 40 mg DAILY PATRICK Administration Radiology Results: ITS Impressions Abdomen/Pelvis CT 02/25/24 11:03 IMPRESSION: 1. Diverticulitis with abscess formation seen in the wall of the sigmoid colon. Follow-up advised. 2. Narrowing at the origin of the hepatic artery. Labs Labs: Laboratory Results - last 24 hr 02/28/24 06:09 WBC 11.3 H RBC 3.67 L Hgb 11.1 L Hct 32.6 L MCV 88.8 MCH 30.2 MCHC 34.0 RDW 12.3 Plt Count 315 MPV 10.8 H Sodium 137 Potassium 3.7 Chloride 107 Carbon Dioxide 25 Anion Gap 5 BUN 2 L Creatinine 0.70 Estim Creat Clear Calc 61 Estimated GFR > 60 Glucose 95 Calcium 8.3 L
[2024-02-28 14:00] VITALS: BP 101/58; PULSE 73; RESP 16; TEMP 36.4; O2SAT 100
--- NOTE | 2024-02-28 14:15 | PM.IMPN ---
Progress Note: A&P Assessment and Plan (1) Abscess of sigmoid colon due to diverticulitis: Code(s): K57.20 - Diverticulitis of large intestine with perforation and abscess without bleeding Status: Acute Assessment and Plan: 02/27/24: CT of the abdomen pelvis showed diverticulitis with abscess formation seen in the wall of the sigmoid colon, narrowing at the origin of the hepatic artery General surgery consulted Continue Zosyn Patient tolerating clear liquid diet, will await further input with General surgery team Continue at 120 mL/hour White blood was 12.1 02/28/24: General surgery following Continue Zosyn White blood cell count down to 11.3 IV fluids stopped Patient tolerating clear liquid diet and advanced to full liquid diet today (2) Anemia: Qualifiers: Anemia type: iron deficiency Iron deficiency anemia type: inadequate dietary iron intake Qualified Code(s): D50.8 - Other iron deficiency anemias Code(s): D64.9 - Anemia, unspecified Status: Acute Assessment and Plan: 02/27/24: Hgb 11.0 Chronic anemia Iron level on 07/18/2023 was 24, ferritin 182, vitamin B12 730, folate greater than 20, TSH 1.86 Likely diet related 02/28/24: Hemoglobin 11.1 No change Time Spent With Patient Time with patient: 25 - 35 minutes Subjective Date/time seen: 02/28/24 14:15 Interval history: Interval history: This is a 63-year-old female who presented to the hospital on 02/25/2024 with complaints of abdominal pain. She recently contacted her general surgeon Dr. Silva who placed her on Cipro and Flagyl for diverticulitis. Her pain worsened prompting her to come in for further evaluation. Workup in the hospital included abdomen pelvis CT which showed diverticulitis with abscess formation seen in the wall of the sigmoid colon, narrowing at the origin of the hepatic artery. Initial labs showed a white blood cell count of 16.1, sodium 136, lactic acid was 1.5, liver function was normal. UA was obtained and showed 1+ ketone, otherwise normal. Blood cultures showing no growth to date on preliminary read. General surgery is consulted and currently treating conservatively with IV antibiotics as the abscess is small. Subjective: 02/28/24: Patient denies any new complaints today. Labs reviewed. Review of Systems Review of Systems: All systems reviewed & are unremarkable except as noted in HPI and below Constitutional: Constitutional: Reports as per HPI and Reports no additional constitutional complaints Eyes: Eyes: Reports as per HPI and Reports no additional eye complaints ENT: Reports system reviewed and no additional complaints, except as documented and Reports as per HPI Cardiovascular: Cardiovascular: Reports as per HPI and Reports no additional cardiovascular complaints Respiratory: Respiratory: Reports as per HPI and Reports no additional respiratory complaints Gastrointestinal: Gastrointestinal: Reports as per HPI and Reports no additional gastrointestinal complaints Genitourinary: Genitourinary: Reports no additional female genitourinary complaints and Reports as per HPI Musculoskeletal: Musculoskeletal: Reports no additional musculoskeletal complaints and Reports as per HPI Integumentary/Breasts: Skin/Breast: Reports system reviewed and no additional complaints, except as docu and Reports as per HPI Neurologic: Reports system reviewed and no additional complaints, except as documented and Reports as per HPI Psychiatric: Psychiatric: Reports no additional psychiatric complaints and Reports as per HPI Exam Narrative: General: In no acute distress Cardiac: Normal S1 and S2. RRR, No murmur, gallops or friction rubs, peripheral pulses intact. Respiratory: Lungs clear to auscultation, no adventitious lung sounds, currently on room air Gastrointestinal: soft, non-distended,mild tenderness noted to LLQ,RLQ, normoactive bowel sounds. : voiding without diffi
[2024-02-28 20:00] VITALS: BP 126/70; PULSE 68; RESP 17; TEMP 36.7; O2SAT 100
[2024-02-29] MEDS: PIPERACILLN/TAZ 3.375GM/NS50ML 3.375 GM/50 ML BAG IVPB ×3 (00:18→11:10)
[2024-02-29] MEDS: HYDROcodone/acetaminophen (*CRX) 5-325 MG TABLET 1 TAB PO ×2 (02:36→08:32)
[2024-02-29 06:00] VITALS: BP 127/71; PULSE 70; RESP 18; TEMP 36.1; O2SAT 93
[2024-02-29 06:47] LABS: Hematocrit 31.2 % (37.0-47.0); Hemoglobin 10.4 g/dL (12.0-15.0); Mean Corpuscular HGB Conc 33.3 g/dl (32-36); Mean Corpuscular Hemoglobin 29.8 pg (26-34); Mean Corpuscular Volume 89.4 fl (80-100); Mean Platelet Volume 10.8 fl (7.4-10.4); Platelet Count Result 320 k/mm3 (150-375); Red Blood Count 3.49 M/mm3 (4.2-5.4); Red Cell Distribution Width 12.5 % (11.5-14.5); White Blood Count 10.4 K/mm3 (4.5-10.0)
[2024-02-29] MEDS: ROSUVASTATIN 20 MG TABLET 40 MG PO (08:33)
[2024-02-29 14:00] VITALS: BP 118/65; PULSE 72; RESP 20; TEMP 36.3; O2SAT 100
--- NOTE | 2024-02-29 14:22 | PM.DS ---
DS: Admitting Diagnosis Discharge Date 02/29/24 Admitting Diagnosis Abscess of sigmoid colon due to diverticulitis Anemia DS: Discharge Diagnosis Discharge Diagnosis (1) Abscess of sigmoid colon due to diverticulitis: Code(s): K57.20 - Diverticulitis of large intestine with perforation and abscess without bleeding Status: Acute (2) Anemia: Qualifiers: Anemia type: iron deficiency Iron deficiency anemia type: inadequate dietary iron intake Qualified Code(s): D50.8 - Other iron deficiency anemias Code(s): D64.9 - Anemia, unspecified Status: Acute DS: Summary Hospital Course Reason for hospitalization: Abscess of sigmoid colon due to diverticulitis Anemia Hospital Course: This is a 63-year-old female who presented to the hospital on 02/25/2024 with complaints of abdominal pain. She recently contacted her general surgeon Dr. Silva who placed her on Cipro and Flagyl for diverticulitis. Her pain worsened prompting her to come in for further evaluation. Workup in the hospital included abdomen pelvis CT which showed diverticulitis with abscess formation seen in the wall of the sigmoid colon, narrowing at the origin of the hepatic artery. Initial labs showed a white blood cell count of 16.1, sodium 136, lactic acid was 1.5, liver function was normal. UA was obtained and showed 1+ ketone, otherwise normal. Blood cultures showing no growth to date on preliminary read. General surgery is consulted and currently treating conservatively with IV antibiotics as the abscess is small. WBC improved today. General surgery ok with discharge on Augmentin and Flagyl. She is stable for discharge at this time. She will follow up with Dr. Velasquez on Wednesday of next week. Final diagnosis: Abscess of sigmoid colon, diverticulitis Status at Discharge Cognitive/behavioral status at discharge: alert and oriented x3 Functional status at discharge: independent ambulation Overall status at discharge: patient is progressing back to baseline Time Spent with Patient Time attestation: Total time spent providing and/or coordinating discharge services: Time spent: Greater than 30 minutes Exam Narrative: General: In no acute distress Cardiac: Normal S1 and S2. RRR, No murmur, gallops or friction rubs, peripheral pulses intact. Respiratory: Lungs clear to auscultation, no adventitious lung sounds, currently on room air Gastrointestinal: soft, non-distended,mild tenderness noted to LLQ,RLQ, normoactive bowel sounds. : voiding without difficulty. Neuro: Alert and oriented x4 DS: Data Data Completed and Pending Completed studies during hospitalization: Abdomen/pelvis CT Pending studies at discharge: Blood cultures Labs on day of discharge: Labs from last 24 hours 02/29/24 06:13 WBC 10.4 H RBC 3.49 L Hgb 10.4 L Hct 31.2 L MCV 89.4 MCH 29.8 MCHC 33.3 RDW 12.5 Plt Count 320 MPV 10.8 H Preliminary micro results at discharge 02/25/24 11:54 Blood Culture - Preliminary Blood 02/25/24 11:55 Blood Culture - Preliminary Blood Procedures/Treatments: None Discharge Plan Discharge Attending physician on discharge: Leola Whitt Consulting providers: Per Golden; Mary Lou Paez Discharging Clinician: Mary Lou Paez Anticipated Discharge Date/Time: 02/29/24 14:22 Patient Disposition: Home, Self-Care Activity: as tolerated Diet: as tolerated Discharge Instructions: Initial your antibiotic as directed unit if your feeling better Stop taking Cipro Continue Flagyl as prescribed and finish the whole course You will be started on Augmentin in place of the Cipro and finish the whole course of this antibiotic Follow-up with Dr. Velasquez in 1 week Patient Instructions: Antibiotic Form, Metronidazole (By mouth), Amoxicillin/Clavulanate Potassium (By mouth), Diverticulosis (ED) Patient Language: Belarusian Stand Alone Forms: General Discharge Info
--- NOTE | 2024-02-29 15:04 | P.PNGS_ITS ---
Progress Note: A&P Assessment and Plan (1) Abscess of sigmoid colon due to diverticulitis: Code(s): K57.20 - Diverticulitis of large intestine with perforation and abscess without bleeding Status: Acute Assessment and Plan: * WBC continues to improve * OK to discharge today. Low fiber diet x2 weeks. Augmentin and Flagyl oral antibiotics. Patient already has appointment scheduled with Dr. Velasquez. Return to ED with recurrent symptoms. Subjective Subjective Date/Time Seen: 02/29/24 15:04 Interval history: Tolerating solid food. Occasional cramping pain. No fevers. Bowels moving. Exam GI: Inspection: non-distended GI Palp: Yes Soft to palpation and Yes Tenderness to palpation present (GI) (minimal LLQ) Auscultation: normal bowel sounds Objective Data Vital Signs Vital Signs: Vital Signs - 24 hr 02/28/24 20:00 02/29/24 06:00 Temperature 36.7 C 36.1 C L Pulse Rate 68 70 Respiratory Rate 17 18 Blood Pressure 126/70 127/71 Pulse Oximetry 100 93 Intake/Output Intake/Output: Intake & Output 02/26/24 02/27/24 02/28/24 02/29/24 23:59 23:59 23:59 23:59 Intake Total 3627.5 4664.6 1510 890 Balance 3627.5 4664.6 1510 890 Meds/Results Medications: Active Medications Generic Name Dose Route Start Last Admin Trade Name Freq PRN Reason Stop Dose Admin Acetaminophen 650 mg 02/25/24 13:44 Acetaminophen 325 Mg Tablet PO Q6H PRN Mild Pain (1-3) or Fever Hydrocodone Bitart/Acetaminophen 1 tab 02/25/24 13:44 02/29/24 08:32 Hydrocodone/Acetaminophen (*Crx) 5-325 Mg Tablet PO 1 tab Q6H PRN Administration Pain Rated 4-6 Dicyclomine HCl 20 mg 02/25/24 13:44 02/26/24 20:12 Dicyclomine Hcl 10 Mg Capsule PO 20 mg QID PRN Administration Abdominal Cramping Hydromorphone HCl 0.5 mg 02/26/24 00:00 02/27/24 11:45 Hydromorphone Hcl Inj (*Crx) 1 Mg/Ml Syr IV PUSH 0.5 mg Q3H PRN Administration Pain Rated 7-10 Piperacillin/Tazobactam/Dextrose 3.375 gm in 50 mls @ 100 mls/hr 02/25/24 18:00 02/29/24 11:40 Zosyn 3.375 Gm/Ns 50 Ml IVPB Infused Q6H PATRICK Infusion Ondansetron HCl 4 mg 02/25/24 11:53 02/26/24 00:46 Ondansetron Inj 4 Mg/2 Ml Vial IV PUSH 4 mg Q4H PRN Administration Nausea Rosuvastatin Calcium 40 mg 02/28/24 09:00 02/29/24 08:33 Rosuvastatin 20 Mg Tablet PO 40 mg DAILY PATRICK Administration Radiology Results: ITS Impressions Abdomen/Pelvis CT 02/25/24 11:03 IMPRESSION: 1. Diverticulitis with abscess formation seen in the wall of the sigmoid colon. Follow-up advised. 2. Narrowing at the origin of the hepatic artery. Labs Labs: Laboratory Results - last 24 hr 02/29/24 06:13 WBC 10.4 H RBC 3.49 L Hgb 10.4 L Hct 31.2 L MCV 89.4 MCH 29.8 MCHC 33.3 RDW 12.5 Plt Count 320 MPV 10.8 H
== END 2024-02-29 15:10 | disposition home or self-care (01) | DRG 392 ==
LOC: ANHED 11:37 → ANH3MEDSUR 12:36
PROVIDERS: Student in an Organized Health Care Education/Training Program; Surgery; Admitting Provider Internal Medicine; Emergency Provider Emergency Medicine; PCP Internal Medicine; Visit Provider Nurse Practitioner Acute Care
DX: K57.20 Diverticulitis of large intestine with perforation and abscess without bleeding (principal); D64.9 Anemia, unspecified; E78.5 Hyperlipidemia, unspecified; J45.909 Unspecified asthma, uncomplicated; Z86.010 Personal history of colon polyps; Z87.891 Personal history of nicotine dependence
CPT/HCPCS: 36415; 74177; 80048; 80053; 81001; 83605; 83690; 85025; 85027; 87040; 96361; 96365; 96375; 96376; 99285; A9270; G0378; J1170; J2270; J2405; J2543; J7030; Q9967

== ENCOUNTER 2024-04-03 03:05 | Day surgery (SDC) | payer BC, SELFPAY ==
[2024-03-10 12:27] VITALS: BMI 23.1
[2024-04-03 06:48] VITALS: BP 125/73; PULSE 74; RESP 18; TEMP 36.3; O2SAT 100; BMI 22.6
[2024-04-03] MEDS: LACTATED RINGERS 1,000 ML 150 ML IV CONT (06:59)
--- NOTE | 2024-04-03 07:48 | PM.IMHP ---
H&P: HPI History of Present Illness Date/Time: 04/03/24 07:48 Chief Complaint: diverticulitis Narrative: this is a 63-year-old woman who presents for colonoscopy. She was hospitalized with diverticulitis a little over a month ago. She has recovered from that episode and denies any persistent constant pain. He Review of Systems Review of Systems: All systems reviewed & are unremarkable except as noted in HPI and below Constitutional: Constitutional: Denies chills, Denies fever(s), Denies headache(s) and Denies weight loss Eyes: Eyes: Denies change in vision ENT: Denies dizziness, Denies headache(s), Denies neck mass and Denies throat swelling Cardiovascular: Cardiovascular: Denies chest pain, Denies lightheadedness and Denies dyspnea Respiratory: Respiratory: Denies cough, Denies dyspnea and Denies wheezing Gastrointestinal: Gastrointestinal: Denies abdominal pain, Denies change in bowel habits, Denies nausea and Denies vomiting Genitourinary: Genitourinary: Denies hematuria and Denies dysuria Musculoskeletal: Musculoskeletal: Reports as per HPI Integumentary/Breasts: Skin/Breast: Reports as per HPI Neurologic: Denies dizziness and Denies headache(s) Allergic/Immunologic: Allergic/Immunologic: Denies throat swelling and Denies wheezing [facility] Past Medical History Medical History Asthma Diverticulitis of sigmoid colon Dyslipidemia Personal history of colonic polyps 2020 - 3 polyps removed, benign Surgical History Surgical History No history of previous surgery Family History Family History Father Cancer Sibling Cancer Mother Dementia Social History Social History Smoking packs per day: 0.25 Smoking cigarettes per day: 5.0 Years smoked: 3 Smoking pack-years: 0.75 Smoking status: Former smoker Tobacco type: cigarettes Additional smoking assessment comments: 1 Carton of cigarettes every 2 weeks Alcohol intake: current Drinks per week: 3 Substance use: never Substance use type: does not use Do You Feel Safe in your Home?: Yes Lack of Transportation: No Lack of Food: Never True Current Housing: I Have Housing Concerned About Future Housing: No Difficulty Paying Gas/Electric Bills: No Difficulty Paying for Meds: No Currently Unemployed: No Education: Decline to Answer Difficulty w/ Childcare or Family Care: No Living arrangements: with family Occupation/Education: retired Spiritual care concerns: No Meds Home Medications and Allergies Home Medications Medication Instructions Recorded Confirmed Type rosuvastatin 40 mg tablet 40 mg PO DAILY 07/17/23 04/03/24 History Allergies Allergy/AdvReac Type Severity Reaction Status Date / Time No Known Allergies Allergy Verified 04/03/24 06:46 Vital Signs Vital Signs - 24 hr 04/03/24 06:48 Temperature 97.3 F L Pulse Rate 74 Respiratory Rate 18 Blood Pressure 125/73 Pulse Oximetry 100 Oxygen Delivery Room Air Exam Const: General: no acute distress and alert Orientation/consciousness: patient oriented x3 HENMT: Head: normocephalic and atraumatic Ears: hearing grossly normal bilaterally Face/Nose/Sinus: Normal nares present Mouth: Yes Normal oral and palatal mucosa present Eyes: Periorbital: periorbital findings normal Sclera: sclerae normal EOM: EOMs intact bilaterally Neck: Neck: normal visual inspection, no lymphadenopathy and trachea midline Chest: Chest palpation & inspection: normal inspection of the chest Resp: Effort & Inspection: normal respiratory effort Auscultation: clear to auscultation bilaterally Cardio: Jugular venous distension: no JVD Rate: regular rate Rhythm: regular rhythm Heart sounds: S1 normal heart sound pres
--- NOTE | 2024-04-03 07:53 | P.PNAN_ITS ---
Anes - Initial Pre Proc Eval Procedure: Operation Date: 04/03/24 08:00 Proposed Procedures p Colonoscopy - Per Golden DO Date/Time: 04/03/24 07:53 Surgeon: Per Golden DO Pre Op Diagnosis: Diverticulitis with abscess Patient Data Age: 63 Gender: F Height: 1.63 m Weight: 60 kg Last Vital Signs Temp 97.3 F L 04/03/24 06:48 Pulse 74 04/03/24 06:48 Resp 18 04/03/24 06:48 BP 125/73 04/03/24 06:48 Pulse Ox 100 04/03/24 06:48 O2 Del Method Room Air 04/03/24 06:48 Allergies Allergy/AdvReac Type Severity Reaction Status Date / Time No Known Allergies Allergy Verified 04/03/24 06:46 Home Medications Medication Instructions Recorded Confirmed Type rosuvastatin 40 mg tablet 40 mg PO DAILY 07/17/23 04/03/24 History Patient hx anesthesia problems: none Family hx anesthesia problems: none Results Review: All pre-operative results and documents have been reviewed as part of the pre-operative evaluation. FOR[facility]LY [facility] Past Medical History Medical History Asthma Diverticulitis of sigmoid colon Dyslipidemia Personal history of colonic polyps 2020 - polyps removed, benign Surgical History Surgical History No history of previous surgery Family History Family History Father Cancer Sibling Cancer Mother Dementia Social History Social History Smoking packs per day: 0.25 Smoking cigarettes per day: 5.0 Years smoked: 3 Smoking pack-years: 0.75 Smoking status: Former smoker Tobacco type: cigarettes Additional smoking assessment comments: 1 Carton of cigarettes every 2 weeks Alcohol intake: current Drinks per week: 3 Substance use: never Substance use type: does not use Do You Feel Safe in your Home?: Yes Lack of Transportation: No Lack of Food: Never True Current Housing: I Have Housing Concerned About Future Housing: No Difficulty Paying Gas/Electric Bills: No Difficulty Paying for Meds: No Currently Unemployed: No Education: Decline to Answer Difficulty w/ Childcare or Family Care: No Living arrangements: with family Occupation/Education: retired Spiritual care concerns: No Anes - Eval Final PreProcedure Day of Procedure 04/03/24 07:53 Patient weight: normal Heart: regular rate and rhythm Lungs: clear to auscultation Airway: Mallampati scale class II Neurological: alert and oriented Last oral intake: >/= 8 hours ASA classification: III Emergent: no Anesthetic plan: proceed Anesthesia type and monitoring: general GIVS and standard monitoring Results Review: All pre-operative results and documents have been reviewed as part of the pre- operative evaluation. Informed Consent: The patient's anesthetic plan and its attendant risks and benefits were discussed with the patient/family/POA. Questions were solicited and answers provided to the satisfaction of the patient/family/POA.
[2024-04-03 08:07] VITALS: BP 99/53; PULSE 67; RESP 17; O2SAT 100
[2024-04-03 08:17] VITALS: BP 106/63; PULSE 70; RESP 17; O2SAT 100
[2024-04-03 08:27] VITALS: BP 102/68; PULSE 64; RESP 23; O2SAT 100
== END 2024-04-03 08:42 | disposition home or self-care (01) ==
PROVIDERS: PCP Internal Medicine; Visit Provider Surgery
PROC: 0DJD8ZZ Inspection of Lower Intestinal Tract, Via Natural or Artificial Opening Endoscopic (ICD-10-PCS; CPT 45378; principal; 2024-04-03 08:00)
DX: Z09 Encounter for follow-up examination after completed treatment for conditions other than malignant neoplasm (principal); K57.20 Diverticulitis of large intestine with perforation and abscess without bleeding; K52.9 Noninfective gastroenteritis and colitis, unspecified; J45.909 Unspecified asthma, uncomplicated; E78.5 Hyperlipidemia, unspecified; Z87.891 Personal history of nicotine dependence; Z86.010 Personal history of colon polyps; Z80.9 Family history of malignant neoplasm, unspecified
CPT/HCPCS: 45380; 88305; J2704; J7120

== ENCOUNTER 2024-05-02 09:35 | Outpatient (CLI) | payer BC, SELFPAY ==
--- NOTE | 2024-05-02 10:15 | ECG_ITS ---
Test Date: 2024-05-02 10:43:49 Measurements Intervals [place] Rate: 60 P: 62 SD: 161 QRS: 19 QRSD: 93 T: 38 QT: 423 QTc: 424 Interpretive Statements SINUS RHYTHM No previous ECG available for comparison Electronically Signed On 05-02-2024 11:30:33 CDT by Marjorie Garcia M.D.
[2024-05-02 11:09] LABS: Hematocrit 42.4 % (37.0-47.0); Hemoglobin 13.9 g/dL (12.0-15.0)
== END 2024-05-02 09:36 | disposition home or self-care (01) ==
LOC: ANHSURGERY 09:41
PROVIDERS: Anesthesiology; PCP Internal Medicine; Visit Provider Surgery
DX: D64.9 Anemia, unspecified (principal); K57.20 Diverticulitis of large intestine with perforation and abscess without bleeding; E78.5 Hyperlipidemia, unspecified
CPT/HCPCS: 36415; 85014; 85018; 86850; 86900; 86901; 93005

== ENCOUNTER 2024-05-08 10:14 | Inpatient (IN) | payer BC, SELFPAY ==
[2024-05-02 09:54] VITALS: BP 137/75; PULSE 64; RESP 16; TEMP 37.2; O2SAT 100; BMI 24.2
--- NOTE | 2024-05-02 10:07 | PC.NURSE ---
Report to the Outpatient Waiting Room, entrance under the green pavilion located off [facility], at time __0600am_on date _05/08/24 . Planned Procedure Time: ___07:30am .? Time changes happen often and if your time is changed the preop area will call you the afternoon before. - You and your visitor will be asked to self-screen and do not enter if you have any COVID symptoms. Please call surgeon if you need to reschedule. - A mask is optional within the hospital at this time. Patients may have clear liquids (water, carbonated beverages, clear teas, apple juice) until 3 hours prior to surgery with a maximum of 20 ounces. - No food from midnight until time of surgery and no smoking. Take only the following medications with a SIP of water on the morning of surgery: ____None DO NOT STOP ANY OF YOUR OTHER PRESCRIPTION MEDICATIONS PRIOR TO SURGERY EXCEPT THE FOLLOWING Medications to discontinue per physician ___Hold all vitamins and supplements for 3 days prior per Anesthesia Date to take last dose 05/04/24 Please no make-up, nail mauritian, hairspray, perfume, deodorant, or body powder the day of surgery.? No jewelry (including any body piercings) or valuables the day of surgery, leave them at home.? Please take a shower or bath the night before, or the morning of, surgery with an antibacterial soap.? Wear comfortable, loose fitting clothing.?Bowel Prep and Ensure Bundle per Dr. Velasquez- pt aware. - Jewelry must be removed prior to entering the operating room.? Rings and piercings that are not removed may be cut off. - The hospital will not accept responsibility for valuables.? - Please leave all valuables, including medications, at home the day of surgery. If you are going home after surgery, a licensed crew car driver must drive you home.? - NO public transportation without another adult if you receive anesthesia. - We recommend that an adult stay with you for 24 hours following discharge. - We also recommend that you do not drive, make important decision, drink alcoholic beverages, or take any drugs that were not prescribed by your health care provider for at least 24 hours after your discharge time. Follow any additional instructions given to you from your surgeon. Telephone instructions given to _Patient and and asked if any additional questions and then verbalized understanding. Patient advised to call surgeon office or pre surgery nurse liaison [phone] if any additional questions.
--- NOTE | 2024-05-07 15:52 | P.PNAN_ITS ---
Anes - Eval Pre Procedure Procedure: Operation Date: 05/08/24 07:30 Proposed Procedures p Hand Assisted Laparoscopic Sigmoid Colectomy - Dianelys Velasquez MD Date/Time: 05/07/24 15:52 Pre Op Diagnosis: Diverticulitis with Perforation and Abcess Patient Data Age: 63 Gender: F Height: 1.63 m Weight: 64 kg Last Vital Signs Temp 37.2 C 05/02/24 09:54 Pulse 64 05/02/24 09:54 Resp 16 05/02/24 09:54 BP 137/75 05/02/24 09:54 Pulse Ox 100 05/02/24 09:54 Allergies Allergy/AdvReac Type Severity Reaction Status Date / Time No Known Allergies Allergy Verified 05/02/24 09:50 Home Medications Medication Instructions Recorded Confirmed Type rosuvastatin 40 mg tablet 40 mg PO DAILY 07/17/23 05/02/24 History cholecalciferol (vitamin D3) 50 50 mcg PO DAILY 05/02/24 05/02/24 History mcg (2,000 unit) tablet (Vitamin D3) [id number]-[id number] 8 mg-folic 400 1 tablet PO DAILY 05/02/24 05/02/24 History mcg-K 50 mcg-lutein 300 mcg tablet (Centrum Silver Women) Patient hx anesthesia problems: none Family hx anesthesia problems: none Results Review: All pre-operative results and documents have been reviewed as part of the pre- operative evaluation. [facility]LY [facility] Past Medical History Medical History Asthma Diverticulitis of sigmoid colon Dyslipidemia Personal history of colonic polyps 2020 - polyps removed, benign Surgical History Surgical History No history of previous surgery Family History Family History Father Cancer Sibling Cancer Mother Dementia Social History Social History Smoking packs per day: 0.5 Smoking cigarettes per day: 10.0 Years smoked: 4 Smoking pack-years: 2.00 Smoking status: Former smoker Tobacco type: cigarettes Smoking end date: 07/12/80 Additional smoking assessment comments: 1 Carton of cigarettes every 2 weeks Alcohol intake: never Drinks per week: 3 Substance use: never Substance use type: does not use Do You Feel Safe in your Home?: Yes Lack of Transportation: No Lack of Food: Never True Current Housing: I Have Housing Concerned About Future Housing: No Difficulty Paying Gas/Electric Bills: No Difficulty Paying for Meds: No Currently Unemployed: No Education: Decline to Answer Difficulty w/ Childcare or Family Care: No Living arrangements: with family Additional living arrangements comments: Occupation/Education: retired Spiritual care concerns: No Exam Day of Procedure 05/07/24 15:52
[2024-05-08] VITALS (13 sets, daily range): BP systolic 97–125; BP diastolic 49–77; PULSE 55–72; RESP 12–20; TEMP 36.2–37; O2SAT 96–100
[2024-05-08] MEDS: ACETAMINOPHEN 500 MG TABLET 1000 MG PO (06:15)
[2024-05-08] MEDS: KETOROLAC 15 MG/ML VIAL (*BKC) IV PUSH (06:27)
[2024-05-08] MEDS: LACTATED RINGERS 1,000 ML 30 ML IV CONT ×2 (06:30→10:29)
--- NOTE | 2024-05-08 07:15 | WPDANESEPPF ---
Anes - Initial Pre Proc Eval Procedure: Operation Date: 05/08/24 07:30 Proposed Procedures p Hand Assisted Laparoscopic Sigmoid Colectomy - Dianelys Velasquez MD Date/Time: 05/08/24 07:15 Surgeon: Dianelys Velasquez MD Pre Op Diagnosis: Diverticulitis with Perforation and Abcess Patient Data Age: 63 Gender: F Height: 1.63 m Weight: 59.6 kg Last Vital Signs Temp 36.9 C 05/08/24 06:58 Pulse 69 05/08/24 06:58 Resp 18 05/08/24 06:58 BP 115/68 05/08/24 06:58 Pulse Ox 100 05/08/24 06:58 O2 Del Method Room Air 05/08/24 06:58 Allergies Allergy/AdvReac Type Severity Reaction Status Date / Time No Known Allergies Allergy Verified 05/08/24 06:14 Home Medications Medication Instructions Recorded Confirmed Type rosuvastatin 40 mg tablet 40 mg PO DAILY 07/17/23 05/08/24 History cholecalciferol (vitamin D3) 50 50 mcg PO DAILY 05/02/24 05/08/24 History mcg (2,000 unit) tablet (Vitamin D3) crnwlubt-aftw-maui 8 mg-folic 400 1 tablet PO DAILY 05/02/24 05/08/24 History mcg-K 50 mcg-lutein 300 mcg tablet (Centrum Silver Women) Patient hx anesthesia problems: none Family hx anesthesia problems: none Results Review: All pre-operative results and documents have been reviewed as part of the pre-operative evaluation. FORMERLY [facility] Past Medical History Medical History Asthma Diverticulitis of sigmoid colon Dyslipidemia Personal history of colonic polyps 2020 - polyps removed, benign Surgical History Surgical History No history of previous surgery Family History Family History Father Cancer Sibling Cancer Mother Dementia Social History Social History Smoking packs per day: 0.5 Smoking cigarettes per day: 10.0 Years smoked: 4 Smoking pack-years: 2.00 Smoking status: Former smoker Tobacco type: cigarettes Smoking end date: 07/12/80 Additional smoking assessment comments: 1 Carton of cigarettes every 2 weeks Alcohol intake: never Drinks per week: 3 Substance use: never Substance use type: does not use Do You Feel Safe in your Home?: Yes Lack of Transportation: No Lack of Food: Never True Current Housing: I Have Housing Concerned About Future Housing: No Difficulty Paying Gas/Electric Bills: No Difficulty Paying for Meds: No Currently Unemployed: No Education: Decline to Answer Difficulty w/ Childcare or Family Care: No Living arrangements: with family Additional living arrangements comments: Occupation/Education: retired Spiritual care concerns: No Anes - Eval Final PreProcedure Day of Procedure 05/08/24 07:15 Patient weight: thin Heart: regular rate and rhythm Lungs: clear to auscultation Airway: Mallampati scale class II Neurological: alert and oriented Last oral intake: >/= 8 hours ASA classification: II Emergent: no Anesthetic plan: proceed Anesthesia type and monitoring: general ETT Results Review: All pre-operative results and documents have been reviewed as part of the pre-operative evaluation. Informed Consent: The patient's anesthetic plan and its attendant risks and benefits were discussed with the patient/family/POA. Questions were solicited and answers provided to the satisfaction of the patient/family/POA.
--- NOTE | 2024-05-08 07:17 | WPDHPUPDATE1 ---
History and Physical Update Update Date/Time: 05/08/24 07:17 History and Physical has been reviewed, including an updated exam of the patient. There are NO changes in the patient's condition. Risks, benefits, and alternatives have been discussed and questions answered. Patient agrees to proceed with procedure.
[2024-05-08] MEDS: ceFAZolin 2 GM/D5W 50 ML 2 GM/50 ML BAG IVPB (07:38)
[2024-05-08] MEDS: metroNIDAZOLE 500 MG/ISO 100ML 500 MG/100 ML BAG 100 MG IVPB (08:00)
[2024-05-08] MEDS: BUPIVACAINE/EPINEPHRINE 0.5% 50 ML VIAL 30 ML INFILTRATE (08:32)
--- NOTE | 2024-05-08 10:17 | W.PM.PROC2 ---
Procedure Note - Detailed Date of Procedure 05/08/24 Pre-op Diagnosis Diverticulitis with Perforation and Abcess Post-op Diagnosis Same Procedure Performed hand assisted laparoscopic sigmoid colectomy with mobilization of the splenic flexure Surgeon Dianelys Velasquez MD Corporate Director Of [employer] Marcello Blevins MD Anesthesia General Indications 63-year-old female with complicated diverticulitis presenting for interval sigmoid colectomy Findings area of inflammation and previous perforation in the distal sigmoid colon, diverticula noted in the mid sigmoid colon Description of Procedure The patient was taken to the operating room and placed in the modified lithotomy position. After adequate induction of general anesthesia, the patient was prepped and draped in the normal sterile fashion. A time-out was then done to verify the patient's identity, as well as the procedure being performed. I began by making a hand port incision around the umbilicus. This incision was carried down into the peritoneal cavity and no adhesions were noted. At this point, the hand port was placed and the abdomen was insufflated. I then placed a trocar through this site and under direct visualization placed a 5 mm and 12 mm ports in the right lower abdomen. The small bowel was then swept superiorly away from the pelvis. I was able to identify the area of previous perforation and diverticulitis in the distal sigmoid colon. This area was still moderately inflamed and thickened. The mid and proximal sigmoid colon were noted to be largely unremarkable, though there was some diverticula in the mid sigmoid colon. I then made a mesenteric window in the distal sigmoid colon with the LigaSure device. Once this window was created, I identified the ureter. The ureter was noted to be posterior and swept posteriorly out of the way. I then continued this medial dissection distally towards the pelvis. The distal sigmoid and upper rectal area was noted to be largely unremarkable. I was able to free up the upper rectum by taking down the lateral and superior attachments. Once done, I took the mesenteric dissection proximally to the area of my anticipated resection in the upper sigmoid colon. I then cleaned distal sigmoid circumferentially to allow the echelon stapler to transect the distal sigmoid. This was done with a blue staple load x2. I then took down the lateral attachments of the sigmoid colon by taking down the white line of Toldt. Given her anatomy, the decision was made to take down the splenic flexure as this would allow the proximal sigmoid to reach into the pelvis for anastomosis. The splenic flexure was taken down under direct visualization with the LigaSure device. At this point I was able to extracorporealyze the specimen. I then again was able to identify the diseased area, as well as the proximal diverticula in the mid sigmoid. I then found an area proximal to this area and transected the upper sigmoid colon. This was done with an echelon stapler. I then prepared the proximal colon for our colorectal anastomosis. Using the EEA sizers, it was noted a 28 EEA stapler would be used for the anastomosis. I then used a auto pursestring device after transecting the proximal colon and placing the 28 anvil in the proximal colon. We then reinsufflated the abdomen and noted adequate length of the proximal colon for our anastomosis. The rectum was then dilated 1st digitally then with the EEA sizers. Once adequately done, the 28 EEA stapler was placed through the rectum and brought out anterior to the previous staple line. I then completed a 28 EEA colorectal anastomosis. We then did an air leak test using the proctoscope and no leak was noted. The anastomosis was noted to be widely patent and tension-free. I then examined the rest of the abdomen and no other pathology was noted. Then copiously irrigated the area of our anastomosis and hemostasis was noted. I then closed the 12 mm port site under direct visualization with a Navarro cone and 0 Vicryl suture. The abdomen was then desufflated and all ports were removed. The hand port fascia was closed with a 1 PDS suture. I then closed the subcutaneous tissue with 3-0 Vicryl suture. The skin of both the hand port incision and both ports I were closed with 4-0 Monocryl subcuticular suture. Dermabond was then placed on all wounds. The patient tolerated the procedure well and was extubated in the operating room. She will be sent to the recovery room in stable condition. Please note that Dr. Marcello Blevins assisted with the essential portions of the case including the sizing of the rectum, completion of the colorectal anastomosis by using the EEA stapler, performance of the anoscopy and air leak test. Estimated Blood Loss 50 Drains No Packing No Pathology Yes Complications No immediate complications Condition Stable Disposition PACU [facility] Billing Surgery - Charge Forward: Surgery Billing
[2024-05-08] MEDS: fentaNYL CITRATE INJ (*CRX) 100 MCG/2 ML VIAL 25 MCG IV PUSH ×2 (11:04→11:09)
--- NOTE | 2024-05-08 12:16 | ADMGEN ---
This patient, Ifrah Plunkett, was admitted to 3 [facility] Surg Room 313-01. Patient/family oriented to hospital policies and general routines including ID bracelet, bed and alarms, visiting hours, pain management, procedures, bathroom and other care routines, personal items, smoking policy, room service/diet, and visiting hours. Information on how to activate the Rapid Response Team has been discussed. Patient/Family are encouraged to report perceived risks to care and to ask questions if they do not understand what they are told or what they should do.
[2024-05-08] MEDS: HYDROmorphone HCL INJ (*CRX) 1 MG/ML SYR IV PUSH ×2 (14:49→20:40)
[2024-05-08] MEDS: IBUPROFEN IV 800 MG/200 ML 800 MG/200 ML BAG 400 MG IVPB (16:30)
[2024-05-08] MEDS: ceFAZolin 1 GM/NS 50 ML 1 GM/50 ML BAG IVPB ×2 (16:31→23:03)
[2024-05-08] MEDS: ONDANSETRON INJ 4 MG/2 ML VIAL IV PUSH (16:31)
[2024-05-08] MEDS: FAMOTIDINE 20 MG/2 ML VIAL IV PUSH (20:41)
[2024-05-09] VITALS (8 sets, daily range): BP systolic 87–111; BP diastolic 41–62; PULSE 61–71; RESP 13–20; TEMP 36.3–37.2; O2SAT 96–100
[2024-05-09] MEDS: HYDROmorphone HCL INJ (*CRX) 1 MG/ML SYR IV PUSH ×2 (01:27→11:42)
[2024-05-09] MEDS: IBUPROFEN IV 800 MG/200 ML 800 MG/200 ML BAG 400 MG IVPB (01:45)
[2024-05-09 07:05] LABS: Hematocrit 35.3 % (37.0-47.0); Hemoglobin 11.5 g/dL (12.0-15.0); Mean Corpuscular HGB Conc 32.6 g/dl (32-36); Mean Corpuscular Hemoglobin 29.4 pg (26-34); Mean Corpuscular Volume 90.3 fl (80-100); Mean Platelet Volume 10.4 fl (7.4-10.4); Platelet Count Result 202 k/mm3 (150-375); Red Blood Count 3.91 M/mm3 (4.2-5.4); Red Cell Distribution Width 13.3 % (11.5-14.5); White Blood Count 11.8 K/mm3 (4.5-10.0)
[2024-05-09 07:19] LABS: Anion Gap 7 mmol/L (4-12); Blood Urea Nitrogen 9 mg/dL (7-17); Calcium 8.5 mg/dL (8.4-10.2); Carbon Dioxide 26 mmol/L (22-30); Chloride 105 mmol/L (98-107); Estimated CRCL calculation 48 ml/min; Estimated Glomerular Filt Rate > 60; Glucose 103 mg/dL (65-110); Potassium 4.6 mmol/L (3.4-5.0); Sodium 138 mmol/L (137-145)
[2024-05-09] MEDS: HYDROcodone/acetaminophen (*CRX) 5-325 MG TABLET 1 TAB PO ×2 (08:25→17:33)
[2024-05-09] MEDS: ALVIMOPAN 12 MG CAPSULE PO ×2 (08:26→20:16)
[2024-05-09] MEDS: FAMOTIDINE 20 MG/2 ML VIAL IV PUSH ×2 (08:27→20:16)
[2024-05-09] MEDS: ENOXAPARIN 40 MG/0.4 ML SYRINGE SUB-Q (08:27)
[2024-05-09] MEDS: ONDANSETRON INJ 4 MG/2 ML VIAL IV PUSH (12:47)
--- NOTE | 2024-05-09 15:39 | PM.PNGS ---
Progress Note: A&P Assessment and Plan (1) Abscess of sigmoid colon due to diverticulitis: Code(s): K57.20 - Diverticulitis of large intestine with perforation and abscess without bleeding Status: Acute Assessment and Plan: doing well, cont routine postop care, regular diet, encourage OOB/IS Subjective Subjective Date/Time Seen: 05/09/24 15:39 Interval history: feels pretty good, some incisional pain c movt, +flatus, rhona clears Review of Systems Review of Systems: All systems reviewed & are unremarkable except as noted in HPI and below Exam Const: General: cooperative, comfortable and no acute distress Resp: Auscultation: clear to auscultation bilaterally Cardio: Rate: regular rate Rhythm: regular rhythm GI: Inspection: normal to inspection, distended and incision GI Palp: Yes abdominal tenderness and Yes Soft to palpation Objective Data Vital Signs Vital Signs: Vital Signs - 24 hr 05/08/24 17:45 05/08/24 21:21 05/08/24 20:00 Temperature 36.3 C L 37.0 C Pulse Rate 62 67 Respiratory Rate 17 14 Blood Pressure 97/51 L 100/49 L Pulse Oximetry 98 99 Oxygen Delivery Room Air 05/09/24 01:48 05/09/24 05:47 05/09/24 09:48 Temperature 36.7 C 36.3 C L 36.7 C Pulse Rate 64 61 62 Respiratory Rate 13 14 20 Blood Pressure 95/46 L 87/41 L 90/58 L Pulse Oximetry 96 98 99 Oxygen Delivery 05/09/24 08:00 05/09/24 11:25 05/09/24 13:00 Temperature 36.8 C Pulse Rate 62 62 Respiratory Rate 20 20 Blood Pressure 110/62 110/60 Pulse Oximetry 99 100 Oxygen Delivery Room Air Intake/Output Intake/Output: Intake & Output 05/06/24 05/07/24 05/08/24 05/09/24 23:59 23:59 23:59 23:59 Intake Total 940 1100 Output Total 880 300 Balance 60 800 Meds/Results Medications: Active Medications Generic Name Dose Route Start Last Admin Trade Name Freq PRN Reason Stop Dose Admin Hydrocodone Bitart/Acetaminophen 1 tab 05/08/24 12:03 05/09/24 08:25 Hydrocodone/Acetaminophen (*Crx) 5-325 Mg Tablet PO 1 tab Q4H PRN Administration Pain Rated 4-6 Alvimopan 12 mg 05/09/24 09:00 05/09/24 08:26 Alvimopan 12 Mg Capsule PO 05/15/24 21:01 12 mg Q12HR PATRICK Administration Enoxaparin Sodium 40 mg 05/09/24 09:00 05/09/24 08:27 Enoxaparin 40 Mg/0.4 Ml Syringe SUB-Q 40 mg DAILY PATRICK Administration Famotidine 20 mg 05/08/24 21:00 05/09/24 08:27 Famotidine 20 Mg/2 Ml Vial IV PUSH 20 mg Q12HR PATRICK Administration Hydromorphone HCl 1 mg 05/08/24 12:03 05/09/24 11:42 Hydromorphone Hcl Inj (*Crx) 1 Mg/Ml Syr IV PUSH 1 mg Q2H PRN Administration Breakthrough Pain Rated 7-10 or NPO Hydromorphone HCl 0.5 mg 05/08/24 12:03 Hydromorphone Hcl Inj (*Crx) 1 Mg/Ml Syr IV PUSH Q2H PRN Breakthrough Pain Rated 4-6 or NPO Ibuprofen 800 mg in 200 mls @ 400 mls/hr 05/08/24 12:03 05/09/24 04:30 Caldolor 800 Mg/200 Ml IVPB Infused Q6H PRN Infusion Breakthrough Pain Rated 1-3 or NPO Naloxone HCl 0.1 mg 05/08/24 12:03 Naloxone Hcl 0.4 Mg/Ml Vial IV PUSH Q2M PRN Opiate Reversal Ondansetron HCl 4 mg 05/08/24 12:03 05/09/24 12:47 Ondansetron Inj 4 Mg/2 Ml Vial IV PUSH 4 mg Q4H PRN Administration Nausea And Vomiting Labs Labs: Laboratory Results - last 24 hr 05/09/24 07:00 WBC 11.8 H RBC 3.91 L Hgb 11.5 L Hct 35.3 L MCV 90.3 MCH 29.4 MCHC 32.6 RDW 13.3 Plt Count 202 MPV 10.4 Sodium 138 Potassium 4.6 Chloride 105 Carbon Dioxide 26 Anion Gap 7 BUN 9 D Creatinine 0.90 Estim Creat Clear Calc 48 Estimated GFR > 60 Glucose 103 Calcium 8.5
[2024-05-10] MEDS: HYDROcodone/acetaminophen (*CRX) 5-325 MG TABLET 1 TAB PO ×3 (01:21→13:37)
[2024-05-10 05:49] VITALS: BP 109/64; PULSE 73; RESP 20; TEMP 37.1; O2SAT 97
[2024-05-10 07:25] LABS: Hematocrit 35.8 % (37.0-47.0); Hemoglobin 11.9 g/dL (12.0-15.0); Mean Corpuscular HGB Conc 33.2 g/dl (32-36); Mean Corpuscular Volume 90.2 fl (80-100); Mean Platelet Volume 11.2 fl (7.4-10.4); Platelet Count Result 180 k/mm3 (150-375); Red Blood Count 3.97 M/mm3 (4.2-5.4); Red Cell Distribution Width 13.1 % (11.5-14.5); White Blood Count 8.7 K/mm3 (4.5-10.0)
[2024-05-10 07:56] LABS: Anion Gap 5 mmol/L (4-12); Blood Urea Nitrogen 8 mg/dL (7-17); Calcium 8.5 mg/dL (8.4-10.2); Carbon Dioxide 28 mmol/L (22-30); Chloride 107 mmol/L (98-107); Estimated CRCL calculation 54 ml/min; Estimated Glomerular Filt Rate > 60; Glucose 90 mg/dL (65-110); Sodium 140 mmol/L (137-145)
[2024-05-10] MEDS: ENOXAPARIN 40 MG/0.4 ML SYRINGE SUB-Q (08:53)
[2024-05-10] MEDS: ALVIMOPAN 12 MG CAPSULE PO (08:54)
[2024-05-10] MEDS: FAMOTIDINE 20 MG/2 ML VIAL IV PUSH (08:55)
[2024-05-10 09:41] VITALS: O2SAT 95
[2024-05-10 14:02] VITALS: BP 117/64; PULSE 70; RESP 16; TEMP 36.6; O2SAT 97
--- NOTE | 2024-05-10 16:40 | P.DS_ITS ---
DS: Admitting Diagnosis Discharge Date 05/10/24 Admitting Diagnosis Diverticulitis with perforation and abscess DS: Discharge Diagnosis Discharge Diagnosis (1) Abscess of sigmoid colon due to diverticulitis: Code(s): K57.20 - Diverticulitis of large intestine with perforation and abscess without bleeding Status: Acute DS: Summary Hospital Course Reason for hospitalization: This is a 63-year-old female with a history of complicated diverticulitis who was seen by Dr. Velasquez as an outpatient and decision was made to proceed with a sigmoid colectomy. Hospital Course: Patient presented for surgery on 05/08/2024. She underwent hand assisted laparoscopic sigmoid colectomy with mobilization of the splenic flexure by Dr. Velasquez. Surgery was straightforward. Her diet was slowly advanced and she was tolerating a solid diet by postop day 2. She was starting to show some signs of bowel function, but had not yet had a bowel movement. Pain was well controlled. Pathology resulted prior to discharge and was discussed in detail with patient and her . Labs were monitored postoperatively and unremarkable. She is stable for discharge by postop day 2 and doing well. Status at Discharge Functional status at discharge: independent ambulation Overall status at discharge: patient is progressing back to baseline Time Spent with Patient Time attestation: Total time spent providing and/or coordinating discharge services: Time spent: Greater than 30 minutes Exam Const: General: comfortable and no acute distress Resp: Effort & Inspection: normal respiratory effort Auscultation: clear to auscultation bilaterally Cardio: Rate: regular rate Rhythm: regular rhythm GI: Inspection: non-distended and incision (incisions dry and intact) GI Palp: Yes Soft to palpation, Yes Tenderness to palpation present (GI) (incisional) and No Guarding due to palpation present (GI) Auscultation: normal bowel sounds Neuro: General: moves all extremities and no focal motor deficits Extrem: General: no calf tenderness and no edema Psych: Mental Status: mental status grossly normal Insight: Good insight present (Psych) DS: Data Data Completed and Pending Completed studies during hospitalization: Final Diagnosis A. Sigmoid colon, sigmoidectomy: - Diverticulosis - Chronic active pericolonic with foreign body reaction secondary to previous perforation - The surgical margins show viable tissue without pathology B. Colonic staple sites, removal: - Benign colonic tissue Labs on day of discharge: Labs from last 24 hours 05/10/24 06:51 WBC 8.7 RBC 3.97 L Hgb 11.9 L Hct 35.8 L MCV 90.2 MCH 30.0 MCHC 33.2 RDW 13.1 Plt Count 180 MPV 11.2 H Sodium 140 Potassium 4.0 Chloride 107 Carbon Dioxide 28 Anion Gap 5 BUN 8 Creatinine 0.80 Estim Creat Clear Calc 54 Estimated GFR > 60 Glucose 90 Calcium 8.5 Procedures/Treatments: Procedures Operation Date: 05/08/24 07:30 Actual Procedure Side Surgeon p Hand Assisted Laparoscopic Sigmoid Colectomy Left Dianelys Velasquez MD Discharge Plan Discharge Attending physician on discharge: Dianelys Velasquez Consulting providers: Luisa Euceda; Amando Montejo Discharging Clinician: Esme Nolasco Anticipated Discharge Date/Time: 05/10/24 14:00 Patient Disposition: Home, Self-Care Activity: may shower, no driving and other - see discharge instructions Diet: regular Wound Care Instructions: incision open to air Discharge Instructions: Surgery Discharge Instructions: * No heavy lifting more than 10-15 pounds with total lifting restrictions of 4-6 weeks. Your surgeon will discuss lifting restrictions at the follow-up. * May shower, do not submerge in water for 2 weeks. * Encouraged walking 3-4 times daily and continued IS use until at baseline activity. * Stairs are okay. No fast/jerky movements. * Do not drive for 1 week or while on narcotic pain medication. * Follow-up with Dr. Velasquez in 2 weeks as scheduled. ([phone]) Call sooner with surgical questions/concerns. * Pain medication was sent to the pharmacy that should only be taken if needed for moderate to severe pain. You may alternate Tylenol and Ibuprofen for mild to moderate pain. Patient Instructions: Antibiotic Form, Colectomy (GEN) Stand Alone Forms: General Discharge Information Follow-up/Referrals: Dianelys Velasquez MD [Physician] - Keep Reg. Scheduled Appt. Discharge Medications: New hydrocodone-acetaminophen 5-325 mg Tablet 1 tablet PO Q4-6H PRN (Reason: Pain Rated 4-6) Qty: 20 0RF Continued rosuvastatin 40 mg tablet 40 mg PO DAILY Centrum Silver Women 8 mg iron-400 mcg-50 mcg Tablet 1 tablet PO DAILY cholecalciferol (vitamin D3) [Vitamin D3] 50 mcg (2,000 unit) Tablet 50 mcg PO DAILY Date of admission: 05/08/24 10:14 Primary Care Provider: Alicia,Sharonda Admitting Provider: Dianelys Velasquez Attending physician on admission: Esme Nolasco Condition: Stable Quality VTE Prophylaxis VTE prophylaxis: mechanical ordered and pharmacologic ordered
== END 2024-05-10 14:35 | disposition home or self-care (01) | DRG 331 ==
LOC: ANH3MEDSUR 05-09 10:01
PROVIDERS: Admitting Provider Surgery; PCP Internal Medicine; Visit Provider Nurse Practitioner Family
PROC: 0D1E4Z4 Bypass Large Intestine to Cutaneous, Percutaneous Endoscopic Approach (ICD-10-PCS; principal; 2024-05-08 07:30)
DX: K57.20 Diverticulitis of large intestine with perforation and abscess without bleeding (principal); E78.5 Hyperlipidemia, unspecified; Z86.0100 Personal history of colon polyps, unspecified; Z87.891 Personal history of nicotine dependence
CPT/HCPCS: 36415; 80048; 85027; 88305; 88307; A9270; C1729; J0330; J0690; J1100; J1171; J1596; J1650; J1741; J1836; J1885; J2003; J2250; J2405; J2704; J3010; J7030; J7120

== ENCOUNTER 2024-11-24 08:26 | Outpatient (CLI) | payer BC, SELFPAY ==
--- NOTE | ~2024-11-24 | MM_ITS ---
EXAMINATION: MM screening ángel BI w you HISTORY: Screening TECHNIQUE: Craniocaudal and mediolateral oblique 3-D tomosynthesis images were obtained and synthetic 2-D images were generated. CAD analysis was submitted and interpreted. COMPARISON: Comparison to multiple prior studies sequentially, with oldest reviewed study dated 07/28. BREAST PARENCHYMAL COMPOSITION: Dense: The breasts are heterogeneously dense, which may obscure small masses FINDINGS: There is no evidence of suspicious mass, calcification, or architectural distortion to sugg est malignancy in either breast. There has been no suspicious interval change. IMPRESSION: 1. No mammographic evidence of malignancy. 2. Recommend routine screening mammography in one year. BI-RADS Category 1: Negative Reviewed, dictated and finalized at location A.
--- OUTSIDE RECORDS SUMMARY | 2024-11-24 08:36 | XMS_ITS | Data Portability ---
Author Organization [place] - [place] [employer], Main Office Address [address] [place] [address] Care Team Providers Care Basket Patcher Name Role Phone SHARONDA ABAD Primary Care Provider [phone] SHARONDA ABAD Referring Provider Assessment Encounter Date Assessment Date Assessment LastModified by Organization Details LastModified Time 10/28/2022 10/28/2022 08/18/2022: TSH/FT4/CMP/Lipid s/CBC: [facility] [email or web address] Not available 10/12/2022 11:19:01 02/24/2023 02/24/2023 08/18/2022: TSH/FT4/CMP/Lipid s/CBC: [facility] 02/05/2023: VIT D 56 TSH/FT4/CMP/Lipid s/CBC: [facility] [email or web address] Not available 02/24/2023 09:47:34 04/05/2023 04/05/2023 Patient returns shoulder pain right left. She has pain in the left shoulder and pain with activity. She got better with the last injection unfortunately the pain has come back. She denies much in the way of radicular symptoms at this point. She is weak in abduction and external rotation and has some give-way. Neurologically she is intact. She has got good neck motion. My impression patient has rotator cuff tendinitis. I injected with 20 mg Kenalog 4 cc 1% lidocaine. ge Not available 04/05/2023 10:32:29 09/01/2023 09/01/2023 08/18/2022: TSH/FT4/CMP/Lipid s/CBC: WN 02/05/2023: VIT D 56 TSH/FT4/CMP/Lipid s/CBC: WNL 07/22/2023: Curt ER K 3.3, AST/ALT 93/82, ALP 165, gluc 114 Not available 09/01/2023 10:26:58 12/13/2023 12/13/2023 08/18/2022: TSH/FT4/CMP/Lipid s/CBC: WNL 02/05/2023: VIT D 56 TSH/FT4/CMP/Lipid s/CBC: WN 07/22/2023: Curt ER K 3.3, AST/ALT 93/82, ALP 165, gluc 114 09/27/2023: Labs Stable Not available 12/13/2023 15:37:31 Plan of Treatment Reminders Order Date Submit Date Provider Last Modified By Organization Details Last Modified Time Details Appointments None recorded. Lab vitamin D, 25-hydroxy, total, serum 2023 024 [email or web address] [employer] [facility], [address], [place], [address], 4 09:28:23 CMP, serum or plasma 2023 024 [email or web address] 6 [employer] [facility], [address], [place], [address], 4 09:28:22 lipid panel, serum 2023 024 [email or web address] 6 [employer] [facility], [address], [place], [address], 4 09:28:22 CBC w/ auto diff 2023 024 BIA [employer] [facility], [address], [place], [address], 4 12:28:18 TSH + free T4, serum 2023 024 [email or web address] 6 [employer] [facility], [address], [address], 4 09:28:23 vitamin D, 25-hydroxy, total, serum 2023 024 [email or web address] [address] [employer] [facility], [address], [address], [place], [address], 4 14:04:50 CMP, serum or plasma 2023 024 [employer] [facility], [address], [address], [place], [address], 4 12:21:07 lipid panel, serum 2023 024 [employer] [facility], [address], [address], [place], [address], 4 12:21:06 CBC w/ auto diff 2023 024 [employer] [facility], [address], [address], [place], [address], 4 12:21:07 TSH + free T4, serum 2023 024 [employer] [facility], [address], [address], [place], [address], 4 12:21:07 vitamin D, 25-hydroxy, total, serum 2022 023 [email or web address] [address] [employer] [facility], [address], [address], [place], [address], 4 08:50:21 CMP, serum or plasma 2022 023 [email or web address] [address] 6 [employer] [facility], [address], [address], [place], [address], 4 08:49:52 lipid panel, serum 2022 023 [email or web address] [address] 6 [employer] [facility], [address], [address], [place], [address], 4 08:50:21 CBC w/ auto diff [address], [address], [address], [place], [address], 4 08:50:21 TSH + free T4, serum [address], [address], [address], [place], [address], 4 08:50:21 vitamin D, 25-hydroxy, total, serum 2022 023 [facility], [address], [place], [address], 3 08:48:57 CMP, serum or plasma 2022 023 [facility] [address], [address], [place], [address], 3 08:48:55 lipid panel, serum 2022 023 [facility], [address], [place], [address], 3 08:48:54 CBC w/ auto diff 2022 023 [facility], [address], [place], [address], 3 08:48:56 TSH + free T4, serum 2022 023 [facility], [address], [place], [address], 3 08:48:55 Referral None recorded. Procedures injection/a spiration joint/bursa (PROC) - in office procedure, administere d by provider 2022 023 [email or web address] In-Office Order, Internal Use Only DO Not Attach Compendium DO Not Attach Compendium, Do Not Delete/merge, [address] 3 09:50:58 Surgeries None recorded. Imaging MAMMO, screening, digital, bilateral 2023 024 [facility], [address], [place], [address], 4 08:48:54 CT, abdomen + pelvis, w/ contrast - approved [id number] 03/10/23-2022 023 [facility], [address], [place], [address], 3 10:04:52 Medication Orders Kenalog 10 mg/mL suspension for injection 2022 023 [email or web address] [facility], [address] [place], [address], 4 09:54:11 ropivacaine (PF) 5 mg/mL (0.5 %) injection solution 2022 023 [email or web address] [facility], [address] [place], [address], 4 09:54:30 amoxicillin 875 mg-potassiu m clavulanate 125 mg tablet 2022 023 [email or web address] [facility], [address] [place], [address], 4 09:53:49 Patient TargetsNo targets recorded. Patient InstructionsNo instructions recorded. Reason for Referral None Reported. Results Created Date Observation Date Name Description Value Unit Range Abnormal Flag Note LastModifiedBy Organization Detail LastModifiedTime 07/28/20 23 02/06/2023 LIPID PANEL (REFL ) cholesterol, total 186 mg/dL <200 normal Not Available [facility] [address] [place], [address], 02/06/2023 08:48:54 02/06/2002/06/2023 LIPID PANEL (REFL ) HDL cholesterol 100 mg/dL > or = 50 normal Not Available [facility] [address] [place], [address], 02/06/2023 08:48:54 02/06/2002/06/2023 LIPID PANEL (REFL ) triglyceride s 73 mg/dL <150 normal Not Available [facility] [place] [address] [place], [address], 02/06/2023 08:48:54 02/06/2002/06/2023 LIPID PANEL (REFL ) LDL-choleste rol 71 mg/dL _(briseida c) normal Refer ence range : <100 Dez able range <100 mg/dL for prima ry preve ntion ; <70 mg/dL for patie nts with CHD or diabe tic patie nts with > or = 2 CHD risk facto rs. LDL-C is now calcu lated using the Gretchen jasso-Hop kins sharonu og n, which is a valid ated novel cynthia motley r accur acy than the Fried osmar equat ion in the estim ation of LDL-C . Gretchen jasso SS et al. [place]. 2013; 310(1 9): 2061- 2068 (http ://ed ucati on.Qu Jacob carlson [employer]che[employer] Partnerss. com/f aq/FA Q164) Not Available [facility] [address] [place], [address], 02/06/2023 08:48:54 02/06/2002/06/2023 LIPID PANEL (REFL ) chol/HDLC ratio 1.9 (calc ) <5.0 normal Not Available [facility] [address] [place], [address], 02/06/2023 08:48:54 02/06/2002/06/2023 LIPID PANEL (REFL ) non HDL cholesterol 86 mg/dL _(briseida c) <130 normal For patie nts with diabe cody plus 1 major ASCVD risk facto r, treat ing to a non-H DL-C goal of <100 mg/dL (LDL- C of <70 mg/dL ) is terry raoo n. Not Available [address], [address], 02/06/2023 08:48:54 02/06/2002/06/2023 TSH+F REE T4 TSH 1.81 mIU/L 0.40-4 .50 normal Not Available [address], [address], 02/06/2023 08:48:55 02/06/2002/06/2023 TSH+F REE T4 T4, free 1.3 NG/dL 0.8-1. 8 normal Not Available [address] [place], [address], 02/06/2023 08:48:55 02/06/2002/06/2023 COMPR EHENS JENNIFER METAB OLIC PANEL glucose 85 mg/dL 65-99 normal Fasti ng refer ence inter charis Not Available [address], [address], 02/06/2023 08:48:55 02/06/2002/06/2023 COMPR EHENS JENNIFER METAB OLIC PANEL urea nitrogen (BUN) 19 mg/dL 7-25 normal Not Available [address], [address], 02/06/2023 08:48:55 02/06/2002/06/2023 COMPR EHENS JENNIFER METAB OLIC PANEL creatinine 0.79 mg/dL 0.50-1 .05 normal Not Available [address], [address], 02/06/2023 08:48:55 02/06/20 23 02/06/2023 COMPR EHENS JENNIFER METAB OLIC PANEL eGFR 85 mL/mi n/1.7 3m2 > or = 60 normal The eGFR is based on the CKD-E PI 2020 equat ion. To calcu late the new eGFR from a previ ous Creat inine or Cysta tin C resul t, go to https ://wesly connelly.jose lynch/sekou braxton s/ kdoqi /gfr% 5Fcal culat or Not Available [address], [address], 02/06/2023 08:48:55 02/06/20 23 02/06/2023 COMPR EHENS JENNIFER METAB OLIC PANEL BUN/creatini ne ratio NOT APPLIC ABLE (calc ) 6-22 Not Available [address], [address], 02/06/2023 08:48:55 02/06/20 23 02/06/2023 COMPR EHENS JENNIFER METAB OLIC PANEL sodium 141 mmol/ L 135-14 6 normal Not Available [address], [address], 02/06/2023 08:48:55 02/06/20 23 02/06/2023 COMPR EHENS JENNIFER METAB OLIC PANEL potassium 4.6 mmol/ L 3.5-5. 3 normal Not Available [address], [address], 02/06/2023 08:48:55 02/06/20 23 02/06/2023 COMPR EHENS JENNIFER METAB OLIC PANEL chloride 105 mmol/ L 98-110 normal Not Available [address], [address], 02/06/2023 08:48:55 02/06/20 23 02/06/2023 COMPR EHENS JENNIFER METAB OLIC PANEL carbon dioxide 28 mmol/ L 20-32 normal Not Available [address], [address], 02/06/2023 08:48:55 02/06/20 23 02/06/2023 COMPR EHENS JENNIFER METAB OLIC PANEL calcium 9.6 mg/dL 8.6-10 .4 normal Not Available [address], [address], 02/06/2023 08:48:55 02/06/20 23 02/06/2023 COMPR EHENS JENNIFER METAB OLIC PANEL protein, total 6.6 g/dL 6.1-8. 1 normal Not Available [address], [address], 02/06/2023 08:48:55 02/06/20 23 02/06/2023 COMPR EHENS JENNIFER METAB OLIC PANEL albumin 4.4 g/dL 3.6-5. 1 normal Not Available [address], [address], 02/06/2023 08:48:55 02/06/20 23 02/06/2023 COMPR EHENS JENNIFER METAB OLIC PANEL globulin 2.2 g/dL_ (calc ) 1.9-3. 7 normal Not Available [address], [address], 02/06/2023 08:48:55 02/06/20 23 02/06/2023 COMPR EHENS JENNIFER METAB OLIC PANEL albumin/glob ulin ratio 2.0 (calc ) 1.0-2. 5 normal Not Available [address], [address], 02/06/2023 08:48:55 02/06/20 23 02/06/2023 COMPR EHENS JENNIFER METAB OLIC PANEL bilirubin, total 0.5 mg/dL 0.2-1. 2 normal Not Available [address], [place], [address], 02/06/2023 08:48:55 02/06/2002/06/2023 COMPR EHENS JENNIFER METAB OLIC PANEL alkaline phosphatase 65 U/L 37-153 normal Not Available [facility] [address] [address] [place], [address], 02/06/2023 08:48:55 02/06/2002/06/2023 COMPR EHENS JENNIFER METAB OLIC PANEL AST 18 U/L 10-35 normal Not Available [address], [address], 02/06/2023 08:48:55 02/06/2002/06/2023 COMPR EHENS JENNIFER METAB OLIC PANEL ALT 18 U/L 6-29 normal Not Available [address], [address], 02/06/2023 08:48:55 02/06/2002/06/2023 CBC (INCL UDES DIFF/ PLT) white blood cell count 5.7 thous and/u L 3.8-10 .8 normal Not Available [address], [address], 02/06/2023 08:48:56 02/06/2002/06/2023 CBC (INCL UDES DIFF/ PLT) red blood cell count 4.66 janet on/uL 3.80-5 .10 normal Not Available [address], [address], 02/06/2023 08:48:56 02/06/2002/06/2023 CBC (INCL UDES DIFF/ PLT) hemoglobin 13.8 g/dL 11.7-1 5.5 normal Not Available [employer] [address], [address], 02/06/2023 08:48:56 02/06/20 23 02/06/2023 CBC (INCL UDES DIFF/ PLT) hematocrit 41.9 % 35.0-4 5.0 normal Not Available [address], [address], 02/06/2023 08:48:56 02/06/2002/06/2023 CBC (INCL UDES DIFF/ PLT) MCV 89.9 fL 80.0-1 00.0 normal Not Available [address], [address], 02/06/2023 08:48:56 02/06/2002/06/2023 CBC (INCL UDES DIFF/ PLT) MCH 29.6 pg 27.0-3 3.0 normal Not Available [address], [address], 02/06/2023 08:48:56 02/06/2002/06/2023 CBC (INCL UDES DIFF/ PLT) MCHC 32.9 g/dL 32.0-3 6.0 normal Not Available [address], [address], 02/06/2023 08:48:56 02/06/2002/06/2023 CBC (INCL UDES DIFF/ PLT) RDW 12.0 % 11.0-1 5.0 normal Not Available [address], [address], 02/06/2023 08:48:56 02/06/2002/06/2023 CBC (INCL UDES DIFF/ PLT) platelet count 290 thous and/u L 140-40 0 normal Not Available [address], [address], 02/06/2023 08:48:56 02/06/2002/06/2023 CBC (INCL UDES DIFF/ PLT) MPV 10.9 fL 7.5-12 .5 normal Not Available [address], [address], 02/06/2023 08:48:56 02/06/2002/06/2023 CBC (INCL UDES DIFF/ PLT) absolute neutrophils 2964 cells /uL 1500-7 800 normal Not Available [address], [address], 02/06/2023 08:48:56 02/06/20 23 02/06/2023 CBC (INCL UDES DIFF/ PLT) absolute lymphocytes 1967 cells /uL 850-39 00 normal Not Available [address], [address], 02/06/2023 08:48:56 02/06/2002/06/2023 CBC (INCL UDES DIFF/ PLT) absolute monocytes 325 cells /uL 200-95 0 normal Not Available [address], [address], 02/06/2023 08:48:56 02/06/20 23 02/06/2023 CBC (INCL UDES DIFF/ PLT) absolute eosinophils 393 cells /uL 15-500 normal Not Available [address], [address], 02/06/2023 08:48:56 02/06/2002/06/2023 CBC (INCL UDES DIFF/ PLT) absolute basophils 51 cells /uL 0-200 normal Not Available [address], [address], 02/06/2023 08:48:56 02/06/20 23 02/06/2023 CBC (INCL UDES DIFF/ PLT) neutrophils 52 % normal Not Available [address], [address], 02/06/2023 08:48:56 02/06/20 23 02/06/2023 CBC (INCL UDES DIFF/ PLT) lymphocytes 34.5 % normal Not Available [facility] [place] [address] [place], [address], 02/06/2023 08:48:56 02/06/2002/06/2023 CBC (INCL UDES DIFF/ PLT) monocytes 5.7 % normal Not Available [facility] [place] [address] [place], [address], 02/06/2023 08:48:56 02/06/20 23 02/06/2023 CBC (INCL UDES DIFF/ PLT) eosinophils 6.9 % normal Not Available [facility] [place] [address] [place], [address], 02/06/2023 08:48:56 02/06/20 23 02/06/2023 CBC (INCL UDES DIFF/ PLT) basophils 0.9 % normal Not Available [facility] [place] [address] [place], [address], 02/06/2023 08:48:56 02/06/2002/06/2023 VITAM IN D,25- OH,TO ARABELLA,I A vitamin D,25-oh,tota l,ia 56 NG/mL 30-100 normal Vitam in D Statu s 25-OH Vitam in D: Defic iency : <20 ng/mL Insuf ficie ncy: 20 - 29 ng/mL Optim al: > or = 30 ng/mL For 25-OH Vitam in D testi ng on patie nts on D2-vogel pplem entat ion and patie nts for whom quant itati on of D2 and D3 fract ions is requi red, the [facility] eD(TM ) 25-OH VIT D, (D2,D 3), LC/MS /MS is recom arnulfo d: order code 19271 (cassi ents >2yrs ). See Note 1 Note 1 For addit ional infor vidhi valiente e refer to http: //anahi Hoang stDia gnost ics.c om/fa q/FAQ 199 (This link is being provi ded for infor matio nal/ educa vasile l purpo ses only. ) Not Available [facility] [address] [address] , [place], [address], 02/06/2023 08:48:57 10/07/19 23 07/30/2022 DEXA, axial skele ton No observ ation record ed. [email or web address] Not Available 2022 16:48:00 03/19/20 23 03/19/2023 CT, abdom en + pelvi s, w/ contr ast No observ ation record ed. [email or web address] [facility] [address] [facility], [place], [address], 06/21/2023 11:56:07 07/17/19 24 07/17/2023 CT, abdom en + pelvi s, w/ contr ast No observ ation record ed. [email or web address] [address], [place], [address], 07/23/2023 16:00:43 09/19/19 24 09/18/2023 MAMMO , scree jose, digit al, bilat eral No observ ation record ed. [email or web address] [address], [place], [address], 10/21/2023 16:42:08 02/25/20 24 02/25/2024 CT, abdom en + pelvi s, w/ contr ast No observ ation record ed. [email or web address], [address], 06/19/2024 08:42:37 Result Notes None recorded. Problems Name Problem SNOMED Code Status Onset Date Resolution Date Notes Provider Name and Address Organization Details Recorded Time Pain of left shoulder joint 3750559560753 9109 Active 2021 Not Available [facility] 3 01:33:09 Vitamin D deficiency 20672076 Active 2021 Not Available [facility] 3 01:33:09 Hyperlipid emia 21351521 Active 2021 Not Available [facility] 3 01:33:09 Osteoporos is 92097872 Active 2022 Not Available [facility] 3 01:33:09 Vertigo 970088201 Active 2022 Sharonda brewster MD [address], [address], [place], [address] , [employer] 3 11:19:57 Otalgia of left ear 6031341209 Active 2022 Sharonda brewster MD [address], [address], [place], [address] , [employer] 3 09:56:49 Abdominal discomfort 28571543 Active 2022 Sharonda brewster MD [address], [address], [place], [address] , [employer] 3 09:57:42 Tendinitis of left rotator cuff 8969496661246 9101 Active 2022 Bob Elias MD [address], [address], [place], [address] , [employer] [facility] 3 10:32:41 Abdominal pain 32901484 Active 2023 Sharonda brewster MD [address], [address], [place], [address] , [employer] 4 16:51:45 Problem Notes None recorded. Procedures Surgical History Date Name Laterality Status Provider Name and Address Organization Details Recorded Time 3 Ortho - Cortisone Injection completed Bob Elias MD [address], [address], [place], [address], [employer] [facility] 04/05/2023 10:31:02 Imaging Results Imaging Date Name Status LastModified by Organ atformerly [facility] Details LastModified Time 07/30/2022 DEXA, axial skeleton completed [email or web address] Information not available 10/12/2022 16:48:00 03/19/2023 CT, abdomen + pelvis, w/ contrast completed [email or web address] [facility] [address], [place], [address], 06/21/2023 11:56:07 07/17/2023 CT, abdomen + pelvis, w/ contrast [facility], [place], [address], 07/23/2023 16:00:43 09/18/2023 MAMMO, screening, digital, bilateral completed [address], [place], [address], 10/21/2023 16:42:08 02/25/2024 CT, abdomen + pelvis, w/ contrast completed [address], [place], [address], 06/19/2024 08:42:37 Procedure Notes None recorded. Medical Equipment None Reported. Allergies No known drug allergies Medications Name Sig Start Date Stop Date Status Note LastModified by Organization Details LastModified Time prednisone 10 mg tablet 09/01 completed Not Available Not Available Not Available hydrocodone 5 mg-acetamin ophen 325 mg tablet 09/01 completed Not Available Not Available Not Available metronidazo le 500 mg tablet 09/01 completed Not Available Not Available Not Available prednisone 10 mg tablets in a dose pack Take 1 tab by mouth, 3 times a day for 3 daysTake 1 tab by mouth 2 times a day for 2 daysTake 1 tab by mouth once a day for 1 day 06/17 completed Not Available Not Available Not Available Kenalog 10 mg/mL suspension for injection Take 20 mg by injection route. 09/01 completed [facility]: [phone] Not Available Not Available Not Available meclizine 25 mg tablet Take 1 tablet 3 times a day by oral route as needed for 15 days. 06/11 completed Not Available Not Available Not Available cephalexin 500 mg capsule 02/09 completed Not Available Not Available Not Available pantoprazol e 40 mg tablet,lele yed release 09/01 completed Not Available Not Available Not Available ergocalcife rol (vitamin D2) 1,250 mcg (50,000 unit) capsule Take 1 capsule every week by oral route. 06/11 completed Not Available Not Available Not Available levofloxaci n 750 mg tablet 09/01 completed Not Available Not Available Not Available amoxicillin 875 mg-potassiu m clavulanate 125 mg tablet Take 1 tablet every 12 hours by oral route for 7 days. 09/01 completed Not Available Not Available Not Available rosuvastati n 40 mg tablet TAKE ONE TABLET BY MOUTH DAILY 2023 active Not Available Not Available Not Avai [employer]able Fish Oil 06/11 completed Not Available Not Available Not Available Vitamin D 06/11 completed Not Available Not Available Not Available ferrous sulfate 220 mg (44 mg iron)/5 mL oral solution 09/01 completed Not Available Not Available Not Available Prolia 60 mg/mL subcutaneou s syringe Inject 1 mL by subcutane ous route. 10/28 completed pt does not want to take Not Available Not Available Not Available ropivacaine (PF) 5 mg/mL (0.5 %) injection solution Take 20 mg by injection route. 09/01 completed [facility] [phone] Not Available Not Available Not Available Vitals Date Recorded Body height Body mass index (BMI) Body weight Body temperature Heart rate Systolic blood pressure Diastolic blood pressure Provider Name and Address Organization Details Last Updated DateTime 3 162.56 cm 23.5 kg/m2 93024.1 5 g 97.7 [degF] 84 /min 126 mm[Hg] 60 mm[Hg] PARDEEP Bryant [facility] [employer] 3 14:17:09 Date Recorded Body height Body mass index (BMI) Body weight Body temperature Heart rate Oxygen saturation Oxygen saturation in Arterial blood by Pulse oximetry Systolic blood pressure Diastolic blood pressure Provider Name and Address Organization Details Last Updated DateTime 3 162.56 cm 23.5 kg/m2 20204.1 5 g 98 [degF] 60 /min 100 % 100 % 118 mm[Hg] 74 mm[Hg] Debbie Rodríguez MA [place] [facility] [employer] [facility] 3 09:39:19 Date Recorded Body height Body mass index (BMI) Body weight Provider Name and Address Organization Details Last Updated DateTime 04/05/2023 162.56 cm 23.2 kg/m2 30197.97 g Marion Arciniega MANAGER [employer] [employer] [facility] 04/05/2023 09:35:53 Date Recorded Body height Body mass index (BMI) Body weight Body temperature Heart rate Systolic blood pressure Diastolic blood pressure Provider Name and Address Organization Details Last Updated DateTime 4 162.56 cm 23.2 kg/m2 40063.9 7 g 97.4 [degF] 72 /min 116 mm[Hg] 68 mm[Hg] Hui Rosa Adelaide [facility] [employer] [facility] 4 09:57:22 Date Recorded Body height Body mass index (BMI) Body weight Body temperature Heart rate Systolic blood pressure Diastolic blood pressure Provider Name and Address Organization Details Last Updated DateTime 4 162.56 cm 23.7 kg/m2 93547.7 5 g 97.4 [degF] 72 /min 110 mm[Hg] 66 mm[Hg] Hui Rosa [facility] [employer] [facility] 4 10:10:11 Social History Question Answer Notes LastModified by Organization Details LastModified Time Tobacco Smoking Status Former Smoker quit 2020 Not Available [facility] 09/10/2022 01:32:26 Do You Have An Advance Directive? No [id number] Information not available 09/10/2022 Do You Wear A Helmet When Biking? No [id number] Information not available 09/10/2022 What Is Your Level Of Caffeine Consumption? Moderate [id number]|2024-11-24 08:36:00|2024-11-24 08:32:00|XMS_ITS|VERNA LONGO|External Medical Summaries|[id number]|" Continuity of Care Document (C-CDA R2.1) (Encounter date: 06/03/2021 12:36 PM) Created on: November 24, 2024 Ifrah Plunkett [facility] External Reference #: [id number] : 1960 Sex: Female Author Organization [facility] Address [address] [facility] [place] [address] [place] [address] Phone Care Team Providers Care Basket Patcher Name Role Phone Remy Rivero MD Unavailable Unavailable Allergies, Adverse Reactions, Alerts Substance Reaction Status Criticality No Known Allergies Active No Inform ation Procedures Procedure Date OFFICE/OUTPATIENT VISIT, EST OFFICE/OUTPATIENT VISIT, EST PREV VISIT, NEW, AGE 40-64 Advance Directives Directive Yes / No Effective Date File Name No Information Encounters Encounter Description Practice Location Reason(s) For Visit Diagnoses Date Provider Providers Copied on Encounter OFFICE/OUTPA TIENT VISIT, EST [facility], [address] [place], [id number], [place] tel:[phone] [facility] colon polyp1 (chief complaint) facial fx (chief complaint) dizziness1 (chief complaint) Polyp of colonEpidemic vertigoEncounter for screening for osteoporosis [address] [facility] [place], [id number] , [place]. tel:[phone] OFFICE/OUTPA TIENT VISIT, EST [facility], [address] [place], [id number], [place] tel:[phone] [facility] HLP1 (chief complaint) low D (chief complaint) colon polyp (chief complaint) HyperlipidemiaVitam in D deficiency, unspecifiedPolyp of colon [address], [place], [id number] , [place]. tel:[phone] PREV VISIT, NEW, AGE 40-64 [facility], [address] [place], [id number], [place] tel:[phone] [facility] physical (chief complaint) Encounter for general adult medical examination without abnormal findings [address], [place], [place], [id number] , [place]. tel:[phone] Family History Family Member Type Diagnosis Age At Onset Brother Problem of lung CA 57 from smok ing Mother Problem of 75 alzehimer Father Problem 75 lung CA from smoking Sister Problem Alive and well Payers Payer name Insurance type Covered libertarian ID Authoriza tion(s) No Information Social History Type Description Quantity Date Captured Comments Alcohol Use Details Caffeine Use Details Unknown Tobacco Use Status Ex-cigarette smoker 021 Smoking Status Former smoker Sex Female Vital Signs Date / Time: Height Weight BMI Pulse Rate Blood Pressure Temperature Respiratory Rate Body Surface Area Head Circumference BMI percentile Pulse Ox Inhaled Ox 12:55 PM 64.00 in 131.00 lbs 22.4 9 kg/m eter (2) 130/70 mm[Hg] Chief Complaint And Reason For Visit From encounter dated '06/03/2021 12:36'. colon polyp1 (chief complaint). Description: Pt has tubular adenoma on recent colonoscopy early this year and she has tubular adenoma Pt denies any GI symptoms or weight loss facial fx (chief complaint). Description: Pt thinks lost balance and she thinks that she slipped onthe floor and she fell on 05/14/21 and she hit her face on the duressor and she suffered maxillary fracture. pt went to ER and she had facial cT and she followed up with Dr. Rehman with suture and she is doing ok now Pt denies any nose bleeding. dizziness1 (chief complaint). Description: Pt c/o acute onset of vertigo feeling when she tries to get up from lying down position or if she looks up since the facial injury ,Pt states that the vertigo feeling last usually several seconds and then resolve Pt denies any headache or nausea, vomiting or vision change. Pt denies any symptoms when standing up from sitting position Pt denies any syncope Pt denies any chest pain or palpitation ,Pt states that it only occurs randomly and not every timePt denies any neck pain Pt denies any tinnitus or ear pain or hearing loss. Pt denies any lightheadedness. Pt states that her bp is around 130/70. pt denies any presyncope. Pt states that she had remote history of vertigo about 6 months ago which only lasted several days and she did not have any symptoms until after the fall recently since 3 weeks ag Plan Of Treatment Date Type Action Status Referral Ordered: COLONOSCOPY AND BIOPSY ordered Referral Ordered: DXA BONE DENSITY, AXIAL ordered Referral Ordered: MAMMOGRAM, SCREENING ordered History Of Present Illness Encounter Date Complaint History Of Prese nt Illness colon polyp1 Pt has tubular a denoma on recent colonoscopy early this year and she has tubular adenoma Pt denies any GI symptoms or weight loss facial fx Pt thinks lost b alance and she thinks that she slipped on the floor and she fell on 05/14/21 and she hit her face on the duressor and she suffered maxillary fracture. pt went to ER and she had facial cT and she followed up with Dr. Rehman with suture and she is doing ok now Pt denies any nose bleeding. dizziness1 Pt c/o acute ons et of vertigo feeling when she tries to get up from lying down position or if she looks up since the facial injury ,Pt states that the vertigo feeling last usually several seconds and then resolve Pt denies any headache or nausea, vomiting or vision change. Pt denies any symptoms when standing up from sitting position Pt denies any syncope Pt denies any chest pain or palpitation ,Pt states that it only occurs randomly and not every time Pt denies any neck pain Pt denies any tinnitus or ear pain or hearing loss. Pt denies any lightheadedness. Pt states that her bp is around 130/70. pt denies any presyncope. Pt states that she had remote history of vertigo about 6 months ago which only lasted several days and she did not have any symptoms until after the fall recently since 3 weeks ag HLP1 Pt has HLP. hendricks joseph, her HDL is high Pt states that she has similar pattern in the past. low D Pt has low D Pt is postmeno. Pt has not done bone density yet colon polyp Pt had colonosco py done yesterday which showed multiple colon polyps ,Pathology is pending now GI told her to repeat in 5 years. physical Pt needs annual physical. Pt is very healthy Pt does not take any medication Pt is overall very healthy .Pt feels well currently without any issue . Instructions Date Instruction Additional Infor mation No Information Assessments Type Assessment Date assessment Polyp of colon assessment Epidemic vertigo assessment Encounter for screening for oste oporosis Mental Status Date Cognitive Assessment Orientation - [place] ed to time, place, person, situation. "
--- OUTSIDE RECORDS SUMMARY | 2024-11-24 08:36 | XMS_ITS | Clinical Summary ---
Author Organization [facility] Address [address] [place] [address] Care Team Providers Care Clinical Document Improvement Educator Name Role Phone Provider, None Primary Care Provider Unavailabl e Allergies No known active allergies Medications rosuvastatin (CRESTOR) 40 MG Tablet 03/10/2023 Active Active Problems No known active problems Social History Tobacco Use Types Packs/Day Years Used Date Smoking Tobacco: Never Smokeless Tobacco: Never Tobacco Cessation:Counseling Given: Not Answered Comments No Sex and Gender Information Value Date Recorded Sex Assigned at Not on file Legal Sex Female 9:15 AM CDT Gender Identity Not on file Sexual Orientation Not on file Last Filed Vital Signs Vital Sign Reading Time Taken Comments Blood Pressure 127/77 03/12/2023 10:11 AM CDT Pulse 63 03/12/2023 10:11 AM CDT Temperature 36.5 C (97.7 F) 03/12/2023 10:11 AM CDT Respiratory Rate 18 03/12/2023 10:11 AM CDT Oxygen Saturation 97% 03/12/2023 10:11 AM CDT Inhaled Oxygen Concentration - - Weight 62.6 kg (138 lb) 03/12/2023 10:11 AM CDT Height 162.6 cm (5' 4 ) 03/12/2023 10:11 AM CDT Body Mass Index 23.69 03/12/2023 10:11 AM CDT Plan of Treatment Health Maintenance Due Date Last Done Comments Hepatitis C Virus (HCV) Screening 1960 Pap Smear 1981 Cervical Cancer Screening (CCS) 1990 HPV/Cotest 1990 Colonoscopy 2005 Colorectal Cancer Screening 2005 Cologuard 2010 Immunochemical Fecal Occult Blood 2010 Pneumococcal Immunization (50+ years) (2 of 2 - PCV) 05/14/2015 05/14/2014 Mammogram 11/08/2018 11/08/2017, 10/02/2015 Influenza Immunization (#1) 03/12/202404/11, 04/08/2020, 05/14/2014 SARS-COV-2 Immunization ( season) 2024 06/17/2022, 09/08/2021, 10/25/2020, Additional history exists Respiratory Syncytial Virus (RSV) Immunization (Adult) (1 - 1-dose 75+ series) 2035 Pneumococcal Immunization Combined Discontinued 05/14/2014 Zoster Immunization Completed 06/16/2020, DTaP/Tdap/Td Immunization Discontinued 2021, 05/14/2021, 06/29/2013 TdaP Immunization Completed 02/09/2022, , 06/29/2013 Hepatitis B Immunization Aged Out No longer eligible based on patient's age to complete this topic Meningococcal Immunization (ACWY) Aged Out No longer eligible based on patient's age to complete this topic Rotavirus Immunization Aged Out No lo nger eligible based on patient's age to complete this topic Insurance [facility] Care Teams Clinical Document Improvement Educator Relationship Specialty Start Date End Date Provider, None [place] PCP - General 03/13/23
== END 2024-11-24 08:27 | disposition home or self-care (01) ==
LOC: ANHIMG 08:28
PROVIDERS: PCP Internal Medicine; Visit Provider Obstetrics & Gynecology Gynecology
DX: Z12.31 Encounter for screening mammogram for malignant neoplasm of breast (principal)
CPT/HCPCS: 77063; 77067